=== PATIENT | female | born 1965 | race Caucasian/White ===

== ENCOUNTER 2023-10-30 17:02 | Inpatient (IN) | payer OTHER, SELFPAY ==
--- NOTE | ~2023-10-30 | US_ITS ---
US abdomen limited INDICATION: Acute cholecystitis PROCEDURE: Realtime right upper abdominal ultrasound. COMPARISON: No prior studies for comparison. FINDINGS: The pancreas is normal without focal mass or pancreatic ductal dilation. Liver echotexture is increased, consistent with fatty infiltration. There is normal directional flow in the portal ve in. There is gallbladder sludge. No gallstones are identified. There is mild gallbladder wall thickening measuring 6 mm. Common bile duct measures 10 mm. No sonographic Devine's sign. IMPRESSION: 1: Gallbladder sludge, gallbladder wall thickening and biliary dilatation. Consider acalculous cholec ystitis in the appropriate clinical setting. 2: Fatty infiltration of the liver. Reviewed, dictated and finalized at location B. IMPRESSION: 1: Gallbladder sludge, gallbladder wall thickening and biliary dilatation. Cons ider acalculous cholecystitis in the appropriate clinical setting. 2: Fatty infiltration of the liver.
--- NOTE | ~2023-10-30 | CT_ITS ---
EXAMINATION: CT abdomen pelvis w con DATE: 10/30/2023 21:00 INDICATION: RLQ pain/tenderness TECHNIQUE: Computed tomography (CT) of the abdomen and pelvis was performed with 100 mL Omnipaque-350 intravenous contrast. Automated exposure control and iterative reconstruction technique were employe d. The dose-length product was 293.77 mGy-cm. COMPARISON: None. FINDINGS: Lower thorax: Unremarkable Liver: Normal. Biliary/Gallbladder: Gallbladder is distended with wall thickening and surrounding inflammatory jovel e. The common bile duct is dilated to 11 mm at the pancreatic head. Mild intrahepatic duct dilation. Pancreas: No mass. The main pancreatic duct is dilated to 5 mm. Spleen: Normal. Adrenals:No mass. Kidneys: No suspicious mass, obstructing stone, or hydronephrosis. GI tract: Mild distal esophageal and gastric wall edema. No small or large bowel dilation. Normal fernie endix. Diverticulosis without diverticulitis. Mesentery/Peritoneum: No ascites, mass, or free air. Retroperitoneum: No mass. Pelvis: The urinary bladder is partially distended. Urinary bladder wall thickening. Normal uterus an d bilateral ovaries.. Soft Tissues: Soft tissues and body wall unremarkable. Bones: No acute osseous finding. IMPRESSION: Mild esophagitis/gastritis. Gallbladder hydrops with marked inflammatory change. Intrahepatic and extra hepatic bile duct dilation with pancreatic duct dilation. No definite stone or mass detected. Consider MRCP. Cystitis versus urinary bladder wall thickening from incomplete distention. Reviewed, dictated and finalized at location K. IMPRESSION: Mild esophagitis/gastritis. Gallbladder hydrops with marked inflammatory change. Intrahepatic and extra hepatic bile duct dilation with pancreatic duct dilation . No definite stone or mass detected. Consider MRCP. Cystitis versus urinary bladder wall thickening from incomplete distention.
[2023-10-30 17:09] VITALS: BP 125/76; PULSE 123; RESP 20; TEMP 36.8; O2SAT 97
--- NOTE | 2023-10-30 20:16 | ED.ABDPAIN ---
HPI - Abdominal Pain General Chief Complaint: Abdominal Pain Stated Complaint: abd pain Time Seen by Provider: 10/30/23 19:05 History of Present Illness HPI narrative: Patient is a 58-year-old female presenting with abdominal pain. States that for the last several days she has had right-sided abdominal pain. Associated with decreased appetite and nausea but no vomiting. States that she has been constipated for the last several days. No fevers or chills, chest pain, shortness of breath, dysuria, hematuria. States that she was recently hospitalized at [place] for TIA. Related Data Home Medications Medication Instructions Recorded Confirmed atorvastatin 80 mg tablet 80 mg PO DAILY 10/30/23 10/30/23 clobetasol 0.05 % topical ointment 1 applic topical TID 10/30/23 10/30/23 folic acid 1 mg tablet 1 mg PO DAILY 10/30/23 10/30/23 losartan 100 mg tablet 100 mg PO DAILY 10/30/23 10/30/23 aspirin 81 mg tablet 81 mg PO DAILY 10/31/23 10/31/23 Allergies Allergy/AdvReac Type Severity Reaction Status Date / Time Penicillins Allergy Severe HIVES Verified 08/20/17 15:55 Sulfa (Sulfonamide AdvReac Severe HIVES Verified 08/20/17 15:55 Antibiotics) Review of Systems Review of Systems: All systems reviewed & are unremarkable except as noted in HPI and below PMFSH Past Medical History Medical History Anxiety and depression CVA (cerebral vascular accident) (2022) Essential hypertension GERD (gastroesophageal reflux disease) With CT evidence of esophagitis and gastritis noted 10/10/2019 Gout Hyperlipidemia Psoriasis Thyroid nodule TIA (transient ischemic attack) October 2023 Surgical History Surgical History History of History of endometrial ablation (2010) Family History Family History Sibling Colon cancer Hypertension Other No problems noted. Mother Hypertension Other Acute myocardial infarction Social History Social History (Updated 10/31/23 @ 08:51 by Bhavani Cadena DO) Social History: The patient lives alone. She has 1 son but she is estranged from her son. She has 4 cats. She is a recovering alcoholic. She states that she has drink up to a pint of vodka a day. She used to use cocaine but has not done so in 20 years. She denies history of tobacco use. She does have heavy secondhand smoke exposure and her clothes in belongings smell of smoke. Code status: DNR/DNI per patient request. Nursing staff was at bedside and witnessed discussion of code status and plan of care with patient. Surrogate decision maker: Tory Strauss (friend) Smoking status: Never smoker Alcohol intake: current Drinks per week: 2 Alcohol use details: One pint of alcohol a day. Substance use: former Substance use type: crack/cocaine Do You Feel Safe in your Home?: Yes Lack of Transportation: No Lack of Food: Never True Current Housing: I Have Housing Concerned About Future Housing: No Difficulty Paying Gas/Electric Bills: YES Difficulty Paying for Meds: No Currently Unemployed: No Education: High School Diploma/GED Difficulty w/ Childcare or Family Care: No Spiritual care concerns: No Exam Narrative: GENERAL: Nontoxic, no acute distress, pleasant cooperative HEAD: Normocephalic, atraumatic. EYES: PERRLA and EOMI. ENT: Mucous membranes moist. NECK: Supple. CHEST: Clear to auscultation. No respiratory distress. HEART: Regular rate and rhythm ABDOMEN: Soft, + right upper quadrant and right lower quadrant tenderness without guarding or rebound EXTREMITIES: Normal range of motion. SKIN: Warm, dry, no rash. NEURO: No focal deficits. Alert and oriented x3. PSYCH: Normal mood and affect. Course Vital Signs Vital signs: Vital Signs Temperature 98.2 F 10/30/23 17:09 Pulse Rate 123 H
[2023-10-30] MEDS: ONDANSETRON INJ 4 MG/2 ML VIAL IV PUSH ×2 (20:44→22:21)
[2023-10-30] MEDS: SODIUM CHLORIDE 0.9% IV 1,000 ML 999 ML IV CONT (20:44)
[2023-10-30] MEDS: HYDROmorphone HCL INJ (*CRX) 1 MG/ML SYR 0.5 MG IV PUSH ×2 (20:44→22:21)
[2023-10-30 20:52] LABS: Basophils Absolute Auto 0.1 K/mm3 (0.0-0.1); Basophils Percent Auto 0.5 % (0.2-1.2); Eosinophils Percent Auto 0.1 % (0-4.4); Hematocrit 36.5 % (37.0-47.0); Hemoglobin 12.5 g/dL (12.0-15.0); Immature Granulocyte Absolute 0.03 K/mm3 (0.00-0.031); Immature Granulocyte Percent A 0.3 % (0-0.5); Lymphocytes Absolute Auto 0.86 K/mm3 (0.9-3.2); Lymphocytes Percent Auto 8.7 % (18.3-44.2); Mean Corpuscular HGB Conc 34.2 g/dl (32-36); Mean Corpuscular Hemoglobin 33.2 pg (26-34); Mean Corpuscular Volume 97.1 fl (80-100); Mean Platelet Volume 11.3 fl (7.4-10.4); Monocytes Absolute Auto 1.2 K/mm3 (0.1-0.6); Neutrophils Absolute Auto 7.8 K/mm3 (1.3-6.7); Neutrophils Percent Auto 78.4 % (45.5-73.1); Platelet Count Result 183 k/mm3 (150-375); Red Blood Count 3.76 M/mm3 (4.2-5.4); Red Cell Distribution Width 13.1 % (11.5-14.5); White Blood Count 9.9 K/mm3 (4.5-10.0)
[2023-10-30 20:53] LABS: Estimated CRCL calculation 80 ml/min; Estimated Glomerular Filt Rate > 60
[2023-10-30 20:59] LABS: Appearance Urine Clear (Clear); Bacteria Urine None Seen /hpf; Bilirubin Urine 1+ (Negative); Blood Urine Negative (Negative); Color Urine Dark Yellow (Yellow); Glucose Urine UA Negative (Negative); Ketones Urine Trace mg/dL (Negative); Leukocyte Esterase Ur 2+ LEU/UL (Negative); Nitrate Urine Negative (Negative); Non Pathogenic Casts 0-2; Protein Urine Trace mg/dL (Negative); RBC Urine 0-2 /hpf (0-2); Specific Grav Ur 1.021 (1.001-1.035); Squamous Epithelial Cell Urine Few /hpf (Few); WBC Urine 51-100 /hpf (0-3); pH Urine 5.5 (5.0-9.0)
[2023-10-30 21:01] LABS: Add Urine Microscopic? YES
[2023-10-30 21:13] LABS: Alanine Aminotransferase 42 U/L (6-35); Albumin Level 4.4 g/dL (3.5-5.1); Alkaline Phosphatase 79 U/L (38-126); Anion Gap 15 mmol/L (4-12); Aspartate Amino Transferase 36 U/L (14-36); Bilirubin,Total 1.6 mg/dL (0.2-1.3); Blood Urea Nitrogen 12 mg/dL (7-17); Calcium 9.8 mg/dL (8.4-10.2); Carbon Dioxide 21 mmol/L (22-30); Chloride 98 mmol/L (98-107); Estimated CRCL calculation 80 ml/min; Estimated Glomerular Filt Rate > 60; Glucose 115 mg/dL (65-110); Lipase 39 U/L (23-300); Potassium 4.5 mmol/L (3.4-5.0); Sodium 134 mmol/L (137-145)
[2023-10-30] MEDS: cefTRIAXone 2 GM/NS 100 ML 2 GM/100 ML BAG IVPB (21:39)
[2023-10-30 21:52] VITALS: BP 124/68; PULSE 75; RESP 17; O2SAT 96
[2023-10-30] MEDS: metroNIDAZOLE 500 MG/ISO 100ML 500 MG/100 ML BAG 100 MG IVPB (22:57)
[2023-10-30] MEDS: LACTATED RINGERS 1,000 ML 100 ML IV CONT (22:57)
--- NOTE | 2023-10-30 23:06 | ADMGEN ---
This patient, Zuleyka Max, was admitted to Medical Room 261-01. Patient/family oriented to hospital policies and general routines including ID bracelet, bed and alarms, visiting hours, pain management, procedures, bathroom and other care routines, personal items, smoking policy, room service/diet, and visiting hours. Information on how to activate the Rapid Response Team has been discussed. Patient/Family are encouraged to report perceived risks to care and to ask questions if they do not understand what they are told or what they should do.
[2023-10-31 04:00] VITALS: BP 129/72; PULSE 61; RESP 18; TEMP 36.9; O2SAT 99
--- NOTE | 2023-10-31 05:09 | PM.IMHP ---
H&P: HPI History of Present Illness Date/Time: 10/31/23 05:09 Chief Complaint: Abdominal pain for 2 days Narrative: 58-year-old female with a past medical history TIA x2, hyperlipidemia, hypertension, GERD, gout, psoriasis and prior who presented to the ER with right upper abdominal pain for few days. The patient reports that she was hospitalized at [place] last week for TIA. She felt better the 1st few days she was at home but then to a 3 days ago she began having pain when she would eat. She was worried that it could be her appendix. Pain was in her right abdomen. But on exam patient's pain is directly in the right upper quadrant. She reports the pain occurs 1-2 hours after she eats. It will last a couple of hours and then usually improves. Pain is a 10/10 intensity is worst and a 7/10 in intensity at its best. It does wax and wane. She denies any associated fevers or chills. She has had decreased appetite but no nausea or vomiting. She has not had a bowel movement for the last several days but thinks that this is related to the fact that she has not been much. She does report some GERD symptoms She does admit to being a alcoholic. She had abstained from alcohol for several weeks but slipped up 7 days ago in drink a few oz. She has not had any alcohol use since then. She used to drink a pint of alcohol a day. Review of Systems Review of Systems: 12 systems were reviewed with pertinent positives and negatives per HPI. Except as documented in the HPI, all other systems were reviewed and are negative. Eyes: Comments: No scleral icterus, PMFSH Past Medical History Medical History Anxiety and depression CVA (cerebral vascular accident) (2022) Essential hypertension GERD (gastroesophageal reflux disease) With CT evidence of esophagitis and gastritis noted 10/10/2019 Gout Hyperlipidemia Psoriasis Thyroid nodule TIA (transient ischemic attack) October 2023 Surgical History Surgical History History of History of endometrial ablation (2010) Family History Family History Sibling Colon cancer Hypertension Other No problems noted. Mother Hypertension Other Acute myocardial infarction Social History Social History (Updated 10/31/23 @ 08:51 by Bhavani Cadena DO) Social History: The patient lives alone. She has 1 son but she is estranged from her son. She has 4 cats. She is a recovering alcoholic. She states that she has drink up to a pint of vodka a day. She used to use cocaine but has not done so in 20 years. She denies history of tobacco use. She does have heavy secondhand smoke exposure and her clothes in belongings smell of smoke. Code status: DNR/DNI per patient request. Nursing staff was at bedside and witnessed discussion of code status and plan of care with patient. Surrogate decision maker: Tory Strauss (friend) Smoking status: Never smoker Alcohol intake: current Drinks per week: 2 Alcohol use details: One pint of alcohol a day. Substance use: former Substance use type: crack/cocaine Do You Feel Safe in your Home?: Yes Lack of Transportation: No Lack of Food: Never True Current Housing: I Have Housing Concerned About Future Housing: No Difficulty Paying Gas/Electric Bills: YES Difficulty Paying for Meds: No Currently Unemployed: No Education: High School Diploma/GED Difficulty w/ Childcare or Family Care: No Spiritual care concerns: No Meds Home Medications and Allergies Home Medications Medication Instructions Recorded Confirmed Type atorvastatin 80 mg tablet 80 mg PO DAILY 10/30/23 10/30/23 History clobetasol 0.05 % topical ointment 1 applic topical TID 10/30/23 10/30/23 History folic acid 1 mg tablet 1 mg PO DAILY 10/30/23 10/30/23
[2023-10-31 06:00] VITALS: BP 119/63; PULSE 73; RESP 21; TEMP 38.2; O2SAT 97
[2023-10-31] MEDS: HYDROmorphone HCL INJ (*CRX) 1 MG/ML SYR 0.5 MG IV PUSH ×4 (06:29→20:44)
--- NOTE | 2023-10-31 07:49 | PM.CNGS ---
Assessment and Plan Assessment and plan (1) Acute cholecystitis: Code(s): K81.0 - Acute cholecystitis Status: Acute Assessment and Plan: CT evidence of acute cholecystitis which is c/w her presentation and clinical exam. CT also showed biliary duct dilatation without obvious stone or mass in the common bile duct. Will repeat her labs this morning and get a RUQ abdominal ultrasound. If her bilirubin is rising, may need to consider MRCP. Continue IV antibiotics and IV fluids, and keep her NPO for ultrasound. Patient prefers to avoid surgery if at all possible at this time. (2) CVA (cerebral vascular accident): Onset Date: 2022 Code(s): I63.9 - Cerebral infarction, unspecified Status: Acute (3) GERD (gastroesophageal reflux disease): Qualifiers: Esophagitis presence: with esophagitis Esophagitis bleeding: without hemorrhage Qualified Code(s): K21.00 - Gastro-esophageal reflux disease with esophagitis, without bleeding Code(s): K21.9 - Gastro-esophageal reflux disease without esophagitis Status: Acute (4) Essential hypertension: Code(s): I10 - Essential (primary) hypertension Status: Acute (5) Alcohol abuse: Code(s): F10.10 - Alcohol abuse, uncomplicated Status: Acute Plan I have discussed the patient's case and plan of care with Dr. Blackburn. Thank you for allowing us to see the patient in consultation and we will continue to follow along with you. History of Present Illness Consult details Consult date: 10/31/23 Reason for consult: other (Cholecystitis) Requesting physician: Nichole Blackburn MD Narrative: This is a 58-year-old woman who we have been asked to see in surgical consultation for acute cholecystitis. Per the patient, she had a stroke about a year ago and was admitted to [facility] about a week ago for a TIA. She was released from the hospital and the following day developed right upper quadrant abdominal pain. She reports associated nausea and vomiting the first 2 days. Her pain improved and returned on Monday morning. Her pain has been persistent over the weekend and ultimately brought her in to [place] ED for evaluation. Labs in the ED showed a normal white blood cell count, total bilirubin 1.6, AST 36, ALT 42, alk-phos 79, and lipase 39. CT scan of the abdomen and pelvis showed findings of acute cholecystitis with intra and extrahepatic biliary ductal dilatation, but no CT evidence of cholelithiasis or choledocholithiasis. Incidentally noted is also cystitis versus urinary bladder wall thickening from incomplete distension, and mild esophagitis/gastritis. She is now seen on the medical floor for consultation. She continues to have right upper quadrant abdominal pain. She is adamant that she would prefer to have this treated with antibiotics and avoid a surgery at this time. Review of Systems Review of Systems: All systems reviewed & are unremarkable except as noted in HPI and below [facility] Past Medical History Medical History Anxiety and depression CVA (cerebral vascular accident) (2022) Essential hypertension GERD (gastroesophageal reflux disease) With CT evidence of esophagitis and gastritis noted 10/10/2019 Gout Hyperlipidemia Psoriasis Thyroid nodule TIA (transient ischemic attack) October 2023 Surgical History Surgical History History of History of endometrial ablation (2010) Family History Family History Sibling Colon cancer Hypertension Other No problems noted. Mother Hypertension Other Acute myocardial infarction Social History Social History Social History: Code status: Full code Surrogate decision maker: Tory Strauss (friend) Smoking status: Never smoker
--- NOTE | 2023-10-31 08:02 | PM.IMPN ---
Progress Note: A&P Assessment and Plan (1) Acute cholecystitis: Code(s): K81.0 - Acute cholecystitis Status: Acute Assessment and Plan: - surgery was consulted notes reviewed: - CT evidence of acute cholecystitis which is c/w her presentation and clinical exam. CT also showed biliary duct dilatation without obvious stone or mass in the common bile duct. Will repeat her labs this morning and get a RUQ abdominal ultrasound. If her bilirubin is rising, may need to consider MRCP. Continue IV antibiotics and IV fluids, and keep her NPO for ultrasound. Patient prefers to avoid surgery if at all possible at this time- due to financial reasons. (2) Abnormal finding on urinalysis: Code(s): R82.90 - Unspecified abnormal findings in urine Status: Acute (3) GERD (gastroesophageal reflux disease): Qualifiers: Esophagitis bleeding: without hemorrhage Esophagitis presence: with esophagitis Qualified Code(s): K21.00 - Gastro-esophageal reflux disease with esophagitis, without bleeding Code(s): K21.9 - Gastro-esophageal reflux disease without esophagitis Status: Acute (4) Essential hypertension: Code(s): I10 - Essential (primary) hypertension Status: Acute Plan Patient has imaging findings and exam concerning for acute cholecystitis. General surgery has been consulted. IV Flagyl and Rocephin have ordered. NPO. Will continue p.r.n. pain medications with Dilaudid. Zofran as needed for nausea. IV fluid hydration. Time Spent With Patient Time with patient: 25 - 35 minutes Subjective Date/time seen: 10/31/23 08:02 Interval history: 58-year-old female with a past medical history TIA x2, hyperlipidemia, hypertension, GERD, gout, psoriasis and prior who presented to the ER with right upper abdominal pain for few days. Surgery was consulted. IV antibiotics and IV fluids, NPO for ultrasound. Patient prefers to avoid surgery if at all possible- due to financial reasons. Noted recent hospitalization for TIA at [place]. Review of Systems Review of Systems: 12 systems were reviewed with pertinent positives and negatives per HPI. Except as documented in the HPI, all other systems were reviewed and are negative. Exam Narrative: Weight 61 kg BMI 21.7 Objective Data Vital Signs Vital Signs: Vital Signs - 24 hr 10/30/23 17:09 10/30/23 21:52 10/30/23 23:17 Temperature 98.2 F Pulse Rate 123 H 75 Respiratory Rate 20 17 Blood Pressure 125/76 124/68 Pulse Oximetry 97 96 Oxygen Delivery Room Air 10/31/23 04:00 Temperature 98.4 F Pulse Rate 61 Respiratory Rate 18 Blood Pressure 129/72 Pulse Oximetry 99 Oxygen Delivery Intake/Output Intake/Output: Intake & Output 10/28/23 10/29/23 10/30/23 10/31/23 23:59 23:59 23:59 23:59 Intake Total 1200 Balance 1200 Meds/Results Medications: Active Medications Generic Name Dose Route Start Last Admin Trade Name Freq PRN Reason Stop Dose Admin Clobetasol Propionate 1 applic 10/31/23 09:00 Clobetasol Propionate 0.05% Oint 30 Gm TOPICAL TID JENY Hydromorphone HCl 0.5 mg 10/30/23 21:56 10/31/23 06:29 Hydromorphone Hcl Inj (*Crx) 1 Mg/Ml Syr IV PUSH 0.5 mg Q4H PRN Administration Pain Rated 7-10 Lactated Ringer's 1,000 mls @ 100 mls/hr 10/30/23 22:00 10/30/23 22:57 Lr - Lactated Ringers Iv IV CONT 100 mls/hr .Q10H JENY Administration Ondansetron HCl 4 mg 10/30/23 21:56 10/30/23 22:21 Ondansetron Inj 4 Mg/2 Ml Vial IV PUSH 4 mg Q4H PRN Administration Nausea Radiology Results: ITS Impressions Abdomen/Pelvis CT 10/30/23 21:09 IMPRESSION: Mild esophagitis/gastritis. Gallbladder hydrops with marked inflammatory change. Intrahepatic and extra hepatic bile duct dilation with pancreatic duct dilation. No definite stone or mass detected. Consider MRCP. Cystitis versus urinary bladder wall thickening from incomplete distent
[2023-10-31] MEDS: CLOBETASOL PROPIONATE 0.05% OINT 30 GM 1 APPLIC TOPICAL ×3 (08:24→17:38)
[2023-10-31 09:08] LABS: Basophils Absolute Auto 0.1 K/mm3 (0.0-0.1); Eosinophils Absolute Auto 0.1 K/mm3 (0-0.3); Eosinophils Percent Auto 0.6 % (0-4.4); Hematocrit 35.2 % (37.0-47.0); Hemoglobin 11.5 g/dL (12.0-15.0); Immature Granulocyte Absolute 0.03 K/mm3 (0.00-0.031); Immature Granulocyte Percent A 0.4 % (0-0.5); Lymphocytes Absolute Auto 0.86 K/mm3 (0.9-3.2); Lymphocytes Percent Auto 10.2 % (18.3-44.2); Mean Corpuscular HGB Conc 32.7 g/dl (32-36); Mean Corpuscular Hemoglobin 32.7 pg (26-34); Mean Platelet Volume 11.9 fl (7.4-10.4); Monocytes Absolute Auto 0.9 K/mm3 (0.1-0.6); Neutrophils Absolute Auto 6.5 K/mm3 (1.3-6.7); Neutrophils Percent Auto 76.8 % (45.5-73.1); Platelet Count Result 185 k/mm3 (150-375); Red Blood Count 3.52 M/mm3 (4.2-5.4); Red Cell Distribution Width 13.2 % (11.5-14.5); White Blood Count 8.4 K/mm3 (4.5-10.0)
[2023-10-31 09:14] LABS: Alanine Aminotransferase 45 U/L (6-35); Alkaline Phosphatase 103 U/L (38-126); Anion Gap 12 mmol/L (4-12); Aspartate Amino Transferase 52 U/L (14-36); Bilirubin,Total 1.5 mg/dL (0.2-1.3); Blood Urea Nitrogen 10 mg/dL (7-17); Calcium 9.4 mg/dL (8.4-10.2); Carbon Dioxide 26 mmol/L (22-30); Chloride 98 mmol/L (98-107); Estimated CRCL calculation 70 ml/min; Estimated Glomerular Filt Rate > 60; Glucose 90 mg/dL (65-110); Potassium 4.6 mmol/L (3.4-5.0); Sodium 136 mmol/L (137-145)
[2023-10-31] MEDS: PANTOPRAZOLE SODIUM IV 40 MG VIAL IV PUSH (09:48)
[2023-10-31] MEDS: THIAMINE HCL 200 MG/2 ML VIAL 100 MG IV PUSH (09:48)
[2023-10-31] MEDS: ENOXAPARIN 40 MG/0.4 ML SYRINGE SUB-Q (09:49)
[2023-10-31] MEDS: LACTATED RINGERS 1,000 ML 100 ML IV CONT ×2 (11:28→23:49)
[2023-10-31 14:00] VITALS: BP 133/77; PULSE 64; RESP 18; TEMP 36.8; O2SAT 97
[2023-10-31] MEDS: metroNIDAZOLE 500 MG/ISO 100ML 500 MG/100 ML BAG 100 MG IVPB ×2 (18:53→23:48)
[2023-10-31 20:00] VITALS: BP 113/72; PULSE 60; RESP 18; TEMP 37.4; O2SAT 99
[2023-11-01] MEDS: HYDROmorphone HCL INJ (*CRX) 1 MG/ML SYR 0.5 MG IV PUSH ×2 (02:07→18:40)
[2023-11-01 04:00] VITALS: BP 124/70; PULSE 62; RESP 18; TEMP 36.9; O2SAT 98
[2023-11-01] MEDS: LACTATED RINGERS 1,000 ML 100 ML IV CONT (05:18)
[2023-11-01] MEDS: metroNIDAZOLE 500 MG/ISO 100ML 500 MG/100 ML BAG 100 MG IVPB ×3 (05:19→17:17)
--- NOTE | 2023-11-01 07:58 | PM.IMPN ---
Progress Note: A&P Assessment and Plan (1) Acute cholecystitis: Code(s): K81.0 - Acute cholecystitis Status: Acute Assessment and Plan: Patient prefers to avoid surgery if at all possible. - Abd/pelvis CT: Mild esophagitis/gastritis. Gallbladder hydrops with marked inflammatory change. Intrahepatic and extra hepatic bile duct dilation with pancreatic duct dilation. No definite stone or mass detected. Consider MRCP if bili is rising. Cystitis versus urinary bladder wall thickening from incomplete distention. - Abd US: Gallbladder sludge, gallbladder wall thickening and biliary dilatation. Consider acalculous cholecystitis in the appropriate clinical setting. Fatty infiltration of the liver. - Monitor vital signs, I and O's, check stool output, neuro status and patient is a fall risk - Monitor serum electrolytes and CBC - Pain management - Gentle IV fluid resuscitation - Antibiotics: Rocephin and flagyl - Consult general surgery for further evaluation, appreciate assistance and recommendation Continue IV antibiotics and fluids - Diet: Full liquid diet (2) GERD (gastroesophageal reflux disease): Qualifiers: Esophagitis bleeding: without hemorrhage Esophagitis presence: with esophagitis Qualified Code(s): K21.00 - Gastro-esophageal reflux disease with esophagitis, without bleeding Code(s): K21.9 - Gastro-esophageal reflux disease without esophagitis Status: Acute Assessment and Plan: Chronic. - Protonix 40 mg IV (3) Essential hypertension: Code(s): I10 - Essential (primary) hypertension Status: Acute Assessment and Plan: Chronic, well controlled on home medication. - Continue Losartan 100 mg daily - Monitor (4) Alcohol abuse: Code(s): F10.10 - Alcohol abuse, uncomplicated Status: Acute Assessment and Plan: Per chart review, the patient stated that she had a small amount of alcohol about 7 days prior to admission. She denies symptoms of alcohol withdrawal and states that she had not had alcohol for 6 or 8 weeks before that. - Given her alcohol use history we will need to watch peripherally for any evidence of possible alcohol withdrawal. In case patient may be minimizing her report of alcohol use. Will continue folic acid supplementation. Will add thiamine supplementation. Time Spent With Patient Time with patient: 25 - 35 minutes Subjective Date/time seen: 11/01/23 07:58 Interval history: 58-year-old female with a past medical history TIA x2, hyperlipidemia, hypertension, GERD, gout, psoriasis and prior who presented to the ER with right upper abdominal pain for few days. Patient is pleasant lying comfortably in bed. She continues to endorse mild right upper quadrant pain. She states that this improved since admission. She was started on a full liquid diet today and is tolerating it well. She denies nausea/vomiting/changes in bowel. Patient evaluated by surgery today and will continue medical management at this time. Patient denies chest pain, shortness of breath, palpitations, and changes in urination. She is ambulating around the room without assistance. Review of Systems Review of Systems: All systems reviewed & are unremarkable except as noted in HPI and below Exam Narrative: AF HR 75 RR 20 SpO2 97 BP 108/66 General: female in no acute respiratory distress who is nontoxic appearing, lying semi recumbent in bed. HEENT: Normocephalic. Atraumatic. Pupils equal round reactive to light. Extraocular movement intact. Sclera clear and anicteric. No facial asymmetry. Chest: Lungs are clear to auscultation bilaterally. No wheezes or crackles. CV: Heart was regular rate and rhythm. S1-S2. No murmurs, gallops, or rubs. Abd: Abdomen was soft. RUQ tender. Nondistended. Positive bowel sounds. No organomegaly or masses. Ext: No clubbing, cyanosis, or edema. 2+ DP pulses bilaterally. Neuro: Patient is alert and oriented x4.
[2023-11-01] MEDS: FOLIC ACID 1 MG TABLET PO (08:29)
[2023-11-01] MEDS: PANTOPRAZOLE SODIUM IV 40 MG VIAL IV PUSH (08:29)
[2023-11-01] MEDS: LOSARTAN POTASSIUM 100 MG TABLET PO (08:29)
[2023-11-01] MEDS: ENOXAPARIN 40 MG/0.4 ML SYRINGE SUB-Q (08:29)
[2023-11-01] MEDS: ATORVASTATIN 40 MG TABLET 80 MG PO (08:29)
[2023-11-01] MEDS: ASPIRIN 81 MG ENTERIC TABLET PO (08:29)
[2023-11-01] MEDS: CLOBETASOL PROPIONATE 0.05% OINT 30 GM 1 APPLIC TOPICAL ×3 (08:30→17:20)
[2023-11-01] MEDS: THIAMINE HCL 200 MG/2 ML VIAL 100 MG IV PUSH (08:30)
[2023-11-01 08:31] VITALS: BP 127/69
[2023-11-01 08:39] LABS: Alanine Aminotransferase 35 U/L (6-35); Albumin Level 3.6 g/dL (3.5-5.1); Alkaline Phosphatase 120 U/L (38-126); Anion Gap 10 mmol/L (4-12); Aspartate Amino Transferase 37 U/L (14-36); Bilirubin,Total 1.2 mg/dL (0.2-1.3); Blood Urea Nitrogen 9 mg/dL (7-17); Calcium 8.9 mg/dL (8.4-10.2); Carbon Dioxide 23 mmol/L (22-30); Chloride 102 mmol/L (98-107); Estimated CRCL calculation 80 ml/min; Estimated Glomerular Filt Rate > 60; Glucose 84 mg/dL (65-110); Potassium 3.7 mmol/L (3.4-5.0); Sodium 135 mmol/L (137-145)
[2023-11-01 08:40] LABS: Basophils Absolute Auto 0.1 K/mm3 (0.0-0.1); Basophils Percent Auto 1.2 % (0.2-1.2); Eosinophils Absolute Auto 0.1 K/mm3 (0-0.3); Eosinophils Percent Auto 1.2 % (0-4.4); Hematocrit 31.7 % (37.0-47.0); Hemoglobin 10.6 g/dL (12.0-15.0); Immature Granulocyte Absolute 0.03 K/mm3 (0.00-0.031); Immature Granulocyte Percent A 0.5 % (0-0.5); Lymphocytes Absolute Auto 0.94 K/mm3 (0.9-3.2); Lymphocytes Percent Auto 16.7 % (18.3-44.2); Mean Corpuscular HGB Conc 33.4 g/dl (32-36); Mean Corpuscular Hemoglobin 32.9 pg (26-34); Mean Corpuscular Volume 98.4 fl (80-100); Mean Platelet Volume 11.7 fl (7.4-10.4); Monocytes Absolute Auto 0.7 K/mm3 (0.1-0.6); Monocytes Percent Auto 12.4 % (2.6-8.5); Neutrophils Absolute Auto 3.8 K/mm3 (1.3-6.7); Platelet Count Result 172 k/mm3 (150-375); Red Blood Count 3.22 M/mm3 (4.2-5.4); Red Cell Distribution Width 12.9 % (11.5-14.5); White Blood Count 5.6 K/mm3 (4.5-10.0)
[2023-11-01 09:07] VITALS: O2SAT 96
--- NOTE | 2023-11-01 11:29 | PM.PNGS ---
Progress Note: A&P Assessment and Plan (1) Acute cholecystitis: Code(s): K81.0 - Acute cholecystitis Status: Acute Assessment and Plan: improved, cont conservative mgmt c abx and low fat diet Subjective Subjective Date/Time Seen: 11/01/23 11:29 Interval history: feels better this am, still c RUQ pain but improved, mary clears Review of Systems Review of Systems: All systems reviewed & are unremarkable except as noted in HPI and below Exam Const: General: cooperative, comfortable and no acute distress Resp: Auscultation: clear to auscultation bilaterally Cardio: Rate: regular rate Rhythm: regular rhythm GI: Inspection: normal to inspection and non-distended GI Palp: Yes abdominal tenderness, Yes Soft to palpation and Yes Tenderness to palpation present (GI) Objective Data Vital Signs Vital Signs: Vital Signs - 24 hr 10/31/23 14:00 10/31/23 20:00 10/31/23 20:00 Temperature 36.8 C 37.4 C Pulse Rate 64 60 Respiratory Rate 18 18 Blood Pressure 133/77 113/72 Pulse Oximetry 97 99 Oxygen Delivery Room Air 11/01/23 04:00 11/01/23 08:31 11/01/23 09:07 Temperature 36.9 C Pulse Rate 62 Respiratory Rate 18 Blood Pressure 124/70 127/69 Pulse Oximetry 98 96 Oxygen Delivery Room Air Intake/Output Intake/Output: Intake & Output 10/29/23 10/30/23 10/31/23 11/01/23 23:59 23:59 23:59 23:59 Intake Total 1200 2630 888.3 Balance 1200 2630 888.3 Meds/Results Medications: Active Medications Generic Name Dose Route Start Last Admin Trade Name Freq PRN Reason Stop Dose Admin Aspirin 81 mg 11/01/23 09:00 11/01/23 08:29 Aspirin 81 Mg Enteric Tablet PO 81 mg QAM JENY Administration Atorvastatin Calcium 80 mg 11/01/23 09:00 11/01/23 08:29 Atorvastatin 40 Mg Tablet PO 80 mg DAILY JENY Administration Clobetasol Propionate 1 applic 10/31/23 09:00 11/01/23 08:30 Clobetasol Propionate 0.05% Oint 30 Gm TOPICAL 1 applic TID JENY Administration Enoxaparin Sodium 40 mg 10/31/23 09:00 11/01/23 08:29 Enoxaparin 40 Mg/0.4 Ml Syringe SUB-Q 40 mg DAILY JENY Administration Folic Acid 1 mg 11/01/23 09:00 11/01/23 08:29 Folic Acid 1 Mg Tablet PO 1 mg DAILY JENY Administration Hydromorphone HCl 0.5 mg 10/30/23 21:56 11/01/23 02:07 Hydromorphone Hcl Inj (*Crx) 1 Mg/Ml Syr IV PUSH 0.5 mg Q4H PRN Administration Pain Rated 7-10 Lactated Ringer's 1,000 mls @ 100 mls/hr 10/30/23 22:00 11/01/23 05:18 Lr - Lactated Ringers Iv IV CONT 100 mls/hr .Q10H JENY Administration Metronidazole 500 mg in 100 mls @ 100 mls/hr 10/31/23 18:40 11/01/23 05:19 Flagyl 500 Mg/Iso Soln 100 Ml IVPB 100 mls/hr Q6HR JENY Administration Ceftriaxone Sodium 1 gm in 50 mls @ 100 mls/hr 10/31/23 19:00 10/31/23 21:11 Rocephin 1 Gm/Ns 50 Ml IVPB Infused Q24H JENY Infusion Losartan Potassium 100 mg 11/01/23 09:00 11/01/23 08:29 Losartan Potassium 100 Mg Tablet PO 100 mg DAILY JENY Administration Ondansetron HCl 4 mg 10/30/23 21:56 10/30/23 22:21 Ondansetron Inj 4 Mg/2 Ml Vial IV PUSH 4 mg Q4H PRN Administration Nausea Pantoprazole Sodium 40 mg 10/31/23 09:00 11/01/23 08:29 Pantoprazole Sodium Iv 40 Mg Vial IV PUSH 40 mg QAM JENY Administration Thiamine HCl 100 mg 10/31/23 09:00 11/01/23 08:30 Thiamine Hcl 200 Mg/2 Ml Vial IV PUSH 100 mg QAM JENY Administration Radiology Results: ITS Impressions Abdomen/Pelvis CT 10/30/23 21:09 IMPRESSION: Mild esophagitis/gastritis. Gallbladder hydrops with marked inflammatory change. Intrahepatic and extra hepatic bile duct dilation with pancreatic duct dilation. No definite stone or mass detected. Consider MRCP. Cystitis versus urinary bladder wall thickening from incomplete distention. Abdomen Ultrasound 10/31/23 09:35 IMPRESSION: 1: Gallbladder sludge, gallbladder wall thickening and biliary dilatati
[2023-11-01 13:56] VITALS: BP 108/66; PULSE 75; RESP 20; TEMP 36.7; O2SAT 97
[2023-11-01] MEDS: HYDROcodone/acetaminophen (*CRX) 5-325 MG TABLET 1 TAB PO (15:08)
[2023-11-01 20:00] VITALS: PULSE 58; RESP 16; O2SAT 100
[2023-11-01 20:14] VITALS: BP 136/75; PULSE 58; RESP 16; TEMP 37; O2SAT 100
[2023-11-02] MEDS: metroNIDAZOLE 500 MG/ISO 100ML 500 MG/100 ML BAG 100 MG IVPB ×3 (00:01→12:09)
[2023-11-02] MEDS: LACTATED RINGERS 1,000 ML 100 ML IV CONT (00:04)
[2023-11-02 05:26] VITALS: BP 141/73; PULSE 64; RESP 18; TEMP 36.7; O2SAT 100
[2023-11-02] MEDS: HYDROmorphone HCL INJ (*CRX) 1 MG/ML SYR 0.5 MG IV PUSH (05:34)
[2023-11-02 05:51] LABS: Basophils Absolute Auto 0.1 K/mm3 (0.0-0.1); Eosinophils Absolute Auto 0.1 K/mm3 (0-0.3); Hematocrit 30.7 % (37.0-47.0); Hemoglobin 10.2 g/dL (12.0-15.0); Immature Granulocyte Absolute 0.02 K/mm3 (0.00-0.031); Immature Granulocyte Percent A 0.4 % (0-0.5); Lymphocytes Percent Auto 22.1 % (18.3-44.2); Mean Corpuscular HGB Conc 33.2 g/dl (32-36); Mean Corpuscular Hemoglobin 32.6 pg (26-34); Mean Corpuscular Volume 98.1 fl (80-100); Mean Platelet Volume 11.2 fl (7.4-10.4); Monocytes Absolute Auto 0.5 K/mm3 (0.1-0.6); Monocytes Percent Auto 9.9 % (2.6-8.5); Neutrophils Absolute Auto 3.3 K/mm3 (1.3-6.7); Neutrophils Percent Auto 65.6 % (45.5-73.1); Platelet Count Result 172 k/mm3 (150-375); Red Blood Count 3.13 M/mm3 (4.2-5.4); Red Cell Distribution Width 13.1 % (11.5-14.5)
[2023-11-02 06:01] LABS: Alanine Aminotransferase 26 U/L (6-35); Albumin Level 3.4 g/dL (3.5-5.1); Alkaline Phosphatase 105 U/L (38-126); Anion Gap 9 mmol/L (4-12); Aspartate Amino Transferase 28 U/L (14-36); Bilirubin,Total 0.6 mg/dL (0.2-1.3); Blood Urea Nitrogen 9 mg/dL (7-17); Carbon Dioxide 25 mmol/L (22-30); Chloride 103 mmol/L (98-107); Estimated CRCL calculation 70 ml/min; Estimated Glomerular Filt Rate > 60; Glucose 95 mg/dL (65-110); Potassium 3.8 mmol/L (3.4-5.0); Sodium 137 mmol/L (137-145)
[2023-11-02] MEDS: THIAMINE HCL 200 MG/2 ML VIAL 100 MG IV PUSH (09:27)
[2023-11-02] MEDS: ENOXAPARIN 40 MG/0.4 ML SYRINGE SUB-Q (09:27)
[2023-11-02] MEDS: LOSARTAN POTASSIUM 100 MG TABLET PO (09:27)
[2023-11-02] MEDS: ATORVASTATIN 40 MG TABLET 80 MG PO (09:27)
[2023-11-02] MEDS: ASPIRIN 81 MG ENTERIC TABLET PO (09:27)
[2023-11-02] MEDS: PANTOPRAZOLE SODIUM IV 40 MG VIAL IV PUSH (09:27)
[2023-11-02] MEDS: FOLIC ACID 1 MG TABLET PO (09:27)
[2023-11-02] MEDS: CLOBETASOL PROPIONATE 0.05% OINT 30 GM 1 APPLIC TOPICAL ×2 (09:28→12:09)
--- NOTE | 2023-11-02 09:28 | PM.PNGS ---
Progress Note: A&P Assessment and Plan (1) Acute cholecystitis: Code(s): K81.0 - Acute cholecystitis Status: Acute Assessment and Plan: improved exam and labs normalized, long d/w pt and she wants to have interval cholecystectomy as outpt, ok to dc home c po abx and analgesia, f/u in 2 wks as outpt to schedule interval crystal Subjective Subjective Date/Time Seen: 11/02/23 09:28 Interval history: feels better, still c some mild pain, mary low fat diet Review of Systems Review of Systems: All systems reviewed & are unremarkable except as noted in HPI and below Exam Const: General: cooperative, comfortable and no acute distress Resp: Auscultation: clear to auscultation bilaterally Cardio: Rate: regular rate Rhythm: regular rhythm GI: Inspection: normal to inspection and non-distended GI Palp: Yes abdominal tenderness and Yes Soft to palpation Objective Data Vital Signs Vital Signs: Vital Signs - 24 hr 11/01/23 13:56 11/01/23 20:14 11/01/23 20:00 Temperature 36.7 C 37.0 C Pulse Rate 75 58 L 58 L Respiratory Rate 20 16 16 Blood Pressure 108/66 136/75 Pulse Oximetry 97 100 100 Oxygen Delivery Room Air 11/02/23 05:26 Temperature 36.7 C Pulse Rate 64 Respiratory Rate 18 Blood Pressure 141/73 H Pulse Oximetry 100 Oxygen Delivery Intake/Output Intake/Output: Intake & Output 10/30/23 10/31/23 11/01/23 11/02/23 23:59 23:59 23:59 23:59 Intake Total 1200 2630 3358.3 840 Balance 1200 2630 3358.3 840 Meds/Results Medications: Active Medications Generic Name Dose Route Start Last Admin Trade Name Freq PRN Reason Stop Dose Admin Acetaminophen 650 mg 11/01/23 14:47 Acetaminophen 325 Mg Tablet PO Q4H PRN Pain Rated 1-3 Hydrocodone Bitart/Acetaminophen 1 tab 11/01/23 14:49 11/01/23 15:08 Hydrocodone/Acetaminophen (*Crx) 5-325 Mg Tablet PO 1 tab Q4H PRN Administration Pain Rated 4-6 Aspirin 81 mg 11/01/23 09:00 11/02/23 09:27 Aspirin 81 Mg Enteric Tablet PO 81 mg QAM JENY Administration Atorvastatin Calcium 80 mg 11/01/23 09:00 11/02/23 09:27 Atorvastatin 40 Mg Tablet PO 80 mg DAILY JENY Administration Clobetasol Propionate 1 applic 10/31/23 09:00 11/02/23 09:28 Clobetasol Propionate 0.05% Oint 30 Gm TOPICAL 1 applic TID JENY Administration Enoxaparin Sodium 40 mg 10/31/23 09:00 11/02/23 09:27 Enoxaparin 40 Mg/0.4 Ml Syringe SUB-Q 40 mg DAILY JENY Administration Folic Acid 1 mg 11/01/23 09:00 11/02/23 09:27 Folic Acid 1 Mg Tablet PO 1 mg DAILY JENY Administration Lactated Ringer's 1,000 mls @ 100 mls/hr 10/30/23 22:00 11/02/23 00:04 Lr - Lactated Ringers Iv IV CONT 100 mls/hr .Q10H JENY Administration Metronidazole 500 mg in 100 mls @ 100 mls/hr 10/31/23 18:40 11/02/23 06:25 Flagyl 500 Mg/Iso Soln 100 Ml IVPB Infused Q6HR JENY Infusion Ceftriaxone Sodium 1 gm in 50 mls @ 100 mls/hr 10/31/23 19:00 11/01/23 19:10 Rocephin 1 Gm/Ns 50 Ml IVPB Infused Q24H JENY Infusion Losartan Potassium 100 mg 11/01/23 09:00 11/02/23 09:27 Losartan Potassium 100 Mg Tablet PO 100 mg DAILY JENY Administration Ondansetron HCl 4 mg 10/30/23 21:56 10/30/23 22:21 Ondansetron Inj 4 Mg/2 Ml Vial IV PUSH 4 mg Q4H PRN Administration Nausea Pantoprazole Sodium 40 mg 10/31/23 09:00 11/02/23 09:27 Pantoprazole Sodium Iv 40 Mg Vial IV PUSH 40 mg QAM JENY Administration Thiamine HCl 100 mg 10/31/23 09:00 11/02/23 09:27 Thiamine Hcl 200 Mg/2 Ml Vial IV PUSH 100 mg QAM JENY Administration Radiology Results: ITS Impressions Abdomen/Pelvis CT 10/30/23 21:09 IMPRESSION: Mild esophagitis/gastritis. Gallbladder hydrops with marked inflammatory change. Intrahepatic and extra hepatic bile duct dilation with pancreatic duct dilation. No definite stone or mass detected. Consider MRCP. Cystitis versus urinary bladder wall thickeni
--- NOTE | 2023-11-02 12:29 | PM.DS ---
DS: Admitting Diagnosis Discharge Date 11/02/23 Admitting Diagnosis acute cholecystitis GERD essential hypertension alcohol abuse DS: Discharge Diagnosis Discharge Diagnosis (1) Acute cholecystitis: Code(s): K81.0 - Acute cholecystitis Status: Acute (2) GERD (gastroesophageal reflux disease): Qualifiers: Esophagitis presence: with esophagitis Esophagitis bleeding: without hemorrhage Qualified Code(s): K21.00 - Gastro-esophageal reflux disease with esophagitis, without bleeding Code(s): K21.9 - Gastro-esophageal reflux disease without esophagitis Status: Acute (3) Essential hypertension: Code(s): I10 - Essential (primary) hypertension Status: Acute (4) Alcohol abuse: Code(s): F10.10 - Alcohol abuse, uncomplicated Status: Acute DS: Summary Hospital Course Reason for hospitalization: acute cholecystitis GERD essential hypertension alcohol abuse Hospital Course: 58-year-old female with a past medical history TIA x2, hyperlipidemia, hypertension, GERD, gout, psoriasis and prior who presented to the ER with right upper abdominal pain for few days. An abdomen/pelvis CT was obtained and showed gallbladder hydrops with marked inflammatory change. Intrahepatic and extra hepatic bile duct dilation with pancreatic duct dilation. No definite stone or mass detected. Patient was made NPO and surgery was consulted. An abdominal US showed gallbladder sludge, gallbladder wall thickening and biliary dilatation. Fatty infiltration of the liver. Patient wanted to avoid surgery at this time and underwent medical management. She was started on IV antibiotics and fluid resuscitation. Patient was started on a liquid diet and advanced to regular diet prior to discharge. Discussed patient with Dr. Blackburn prior to discharge and she is to be discharged on ciprofloxacin to complete a 10 day course. She is to follow up with surgery in 2 weeks. Prior to discharge patient denied chest pain, shortness of breath, nausea/vomiting, and changes in bowel/bladder. Patient discharged home in stable condition. She is to continue the ciprofloxacin as prescribed and follow up with surgery as scheduled. Patient is to follow up with her PCP in 1 week to discuss recent admission. Status at Discharge Functional status at discharge: independent ambulation Time Spent with Patient Time attestation: Total time spent providing and/or coordinating discharge services: Time spent: Greater than 30 minutes Exam Narrative: AF HR 64 RR 18 SpO2 100 BP 141/73 General: female in no acute respiratory distress who is nontoxic appearing, lying semi recumbent in bed. HEENT: Normocephalic. Atraumatic. Pupils equal round reactive to light. Extraocular movement intact. Sclera clear and anicteric. No facial asymmetry. Chest: Lungs are clear to auscultation bilaterally. No wheezes or crackles. CV: Heart was regular rate and rhythm. S1-S2. No murmurs, gallops, or rubs. Abd: Abdomen was soft. RUQ tender. Nondistended. Positive bowel sounds. No organomegaly or masses. DS: Data Data Completed and Pending Completed studies during hospitalization: Abdomen US Abdomen/pelvis CT Labs on day of discharge: Labs from last 24 hours 11/02/23 05:10 WBC 5.0 RBC 3.13 L Hgb 10.2 L Hct 30.7 L MCV 98.1 MCH 32.6 MCHC 33.2 RDW 13.1 Plt Count 172 MPV 11.2 H Immature Gran % (Auto) 0.4 Neut % (Auto) 65.6 Lymph % (Auto) 22.1 [place] % (Auto) 9.9 H Eos % (Auto) 1.0 Baso % (Auto) 1.0 Lymph # (Auto) 1.10 [place] # (Auto) 0.5 Eos # (Auto) 0.1 Baso # (Auto) 0.1 Abs Immat Gran (auto) 0.02 Absolute Neuts (auto) 3.3 Absolute Nucleated RBC 0.000 Nucleated RBC % 0.0 Sodium 137 Potassium 3.8 Chloride 103 Carbon Dioxide 25 Anion Gap 9 BUN 9 Creatinine 0.70 Estim Creat Clear Calc 70 Estimated GFR > 60 Glucose 95 Calcium 9.0 Total Bilirubin 0.6 AST 28 ALT 26 Alkaline Phosphatase 1
== END 2023-11-02 13:33 | disposition home or self-care (01) ==
LOC: ANHED 21:06 → ANH2MED 22:33
PROVIDERS: Nurse Practitioner Family; Admitting Provider Internal Medicine; Emergency Provider Emergency Medicine; PCP Internal Medicine Gastroenterology; Visit Provider Student in an Organized Health Care Education/Training Program
DX: K81.0 Acute cholecystitis (principal); K21.9 Gastro-esophageal reflux disease without esophagitis; I10 Essential (primary) hypertension; F10.10 Alcohol abuse, uncomplicated; E78.5 Hyperlipidemia, unspecified; L40.9 Psoriasis, unspecified; M10.9 Gout, unspecified; F41.8 Other specified anxiety disorders; E04.1 Nontoxic single thyroid nodule; R82.90 Unspecified abnormal findings in urine; Z86.73 Personal history of transient ischemic attack (TIA), and cerebral infarction without residual deficits
CPT/HCPCS: 36415; 74177; 76705; 80053; 81001; 83690; 85025; 87086; 96361; 96365; 96375; 96376; 99285; A9270; G0378; J0696; J1170; J1650; J1836; J2405; J2470; J3411; J7030; J7120; Q9967

== ENCOUNTER 2024-01-30 22:32 | Inpatient (IN) | payer OTHER, SELFPAY ==
--- NOTE | ~2024-01-30 | XR_ITS ---
INTRAOPERATIVE FLUOROSCOPY: CLINICAL HISTORY: 58 years old Female; choledocholithiasis PROCEDURE COMMENTS: Limited intraoperative fluoroscopy of the biliary tree was performed. CUMULATIVE DOSE: 36.9 mGy FLUOROSCOPY TIME: 293 seconds FINDINGS/IMPRESSION: Intraoperative fluoroscopic views demonstrate contrast opacifying the common bile duct and proximal i ntrahepatic bile ducts pre and post stone removal. Please refer to operative note for further details. Reviewed, dictated and finalized at location A.
--- NOTE | ~2024-01-30 | MR_ITS ---
EXAMINATION: MR MRCP wo/w con/w 3D wo ind DATE: 01/31/2024 09:49 INDICATION: Choledocholithiasis. TECHNIQUE: Magnetic resonance imaging (MRI) of the abdomen was performed without and with 14 mL Multi Marisel intravenous contrast. Sequences included coronal T2-weighted FS FSE, coronal T2-weighted FSE, a xial T1-weighted LAVA, coronal FS FIESTA, axial dual-echo T1-weighted SPGR, coronal lava-FLEX, sagitt al T2-weighted FSE, axial T2-weighted FSE, and axial DWI. Thick-slab T2-weighted FSE images were obta ined for magnetic resonance cholangiopancreatography (MRCP). Maximum intensity projection 3-D reconst ructions of the volumetric data were created by the technologist. Postcontrast sequences included cor onal LAVA-flex and time course of axial T1-weighted LAVA. COMPARISON: CT abdomen and pelvis 01/30/2024, 10/30/23 FINDINGS: ABDOMEN MRI: The liver demonstrates periportal edema. The gallbladder is distended and contains sludg e. There is edema around the karolyn hepatis. The spleen, pancreas, and adrenal glands are normal. Ther e is cortical thinning of the kidneys. There is 11 mm cyst in right kidney. There is a 5 mm cyst in l eft kidney. There are no dilated loops of bowel. There are no pathologically enlarged lymph nodes. Th ere is trace perihepatic ascites. ABDOMEN MRCP: The common duct is dilated to 12 mm. There is a 6 x 9 mm stone or cluster of stones in the common bile duct. IMPRESSION: 1. Choledocholithiasis with intrahepatic and extrahepatic biliary duct dilatation and gallbladder dis tention. Reviewed, dictated and finalized at location A. IMPRESSION: 1. Choledocholithiasis with intrahepatic and extrahepatic biliary duct dilatati on and gallbladder distention.
--- NOTE | ~2024-01-30 | CT_ITS ---
EXAMINATION: CT abdomen pelvis w con DATE: 01/30/2024 23:33 INDICATION: Right upper quadrant abdominal pain. Abnormal liver function tests. TECHNIQUE: Computed tomography (CT) of the abdomen and pelvis was performed with 100 mL Omnipaque-350 intravenous contrast. Automated exposure control and iterative reconstruction technique were employe d. The dose-length product was 263.13 mGy-cm. COMPARISON: 10/30/2023 FINDINGS: Mild dependent atelectasis in the right lower lobe. Heart size is normal. No pericardial effusion. Ec kathy of the ascending thoracic aorta the visualized portion which measures up to 3.9 cm. Enlargement of the central pulmonary arteries consistent with pulmonary arterial hypertension. Mild dilation of the common bile duct which measures up to 10 mm in maximal diameter with intraluminal densities at th e distal duct likely representing choledocholithiasis. Minimal central intrahepatic ductal or ductal dilation. Liver is otherwise normal. The gallbladder is distended to 4.3 similar with diffuse mild wa ll thickening but without evident pericholecystic inflammatory stranding but with suggestion of minim al amount of fluid at the karolyn hepatis suspicious for early acute cholecystitis. Spleen, pancreas, b ilateral adrenal glands and left kidney are normal. 1.5 cm right renal cyst. There are also small reg ion of cortical scarring at the right kidney likely sequela of chronic infection or infarction. Moder ate diverticulosis along the descending and sigmoid colon without adjacent comparison to suggest dive rticulitis. No bowel obstruction. Bladder uterus and bilateral adnexa are unremarkable. No free intra peritoneal gas or fluid. No pathologically enlarged abdominal or pelvic lymphadenopathy. Moderate to severe lumbar and lower thoracic spondylosis. Acute to subacute L1 and L3 compression fractures with 20% anterior vertebral body height loss and linear sclerotic fracture lines underlying the mildly dep ressed superior endplates. Moderate bilateral hip osteoarthritis. IMPRESSION: 1. Likely choledocholithiasis with secondary biliary obstruction and suspicion for developing acute c holecystitis. Correlate with liver function tests and for Devine sign. Could consider further evaluat ion with MRCP, right upper quadrant ultrasound or HIDA scan depending upon clinical suspicion and spe cific question to be addressed. 2. Acute to subacute L1 and L3 compression fractures which are new since 3 months prior. Reviewed, dictated and finalized at location A. IMPRESSION: 1. Likely choledocholithiasis with secondary biliary obstruction and suspicion for developing acute cholecystitis. Correlate with liver function tests and for Devine sign. Could consider further evaluation with MRCP, right upper quadrant ultrasound or HIDA scan depending upon clinical suspicion and specific questio n to be addressed. 2. Acute to subacute L1 and L3 compression fractures which are new since 3 vinicius hs prior.
[2024-01-30 22:32] VITALS: BP 178/101; PULSE 73; RESP 27; TEMP 36.4; O2SAT 96
--- NOTE | 2024-01-30 22:51 | ED_ITS ---
HPI - Abdominal Pain General Chief Complaint: Abdominal Pain <RENE Myers Filed: 01/31/24 02:08> Stated Complaint: Abd pain, RLQ <RENE Myers Last Filed: 01/31/24 02:08> Time Seen by Provider: 01/30/24 22:44 <RENE Myers Last Filed: 01/31/24 02:08> Source: patient <RENE Myers Filed: 01/31/24 02:08> Mode of arrival: EMS <RENE Myers Filed: 01/31/24 02:08> Limitations: no limitations <RENE Myers Filed: 01/31/24 02:08> History of Present Illness HPI narrative: Patient is a 58-year-old female who presents the ED via EMS with report of right upper abdominal pain. Patient reports history of gallbladder disease and states she was seen in the ED here 3 months ago for similar symptoms. Was told she needed to have her gallbladder out at that time, but was unable to due to financial issues. Was treated conservatively with antibiotics at that time. States today she began having pain a few hours prior to arrival. Pain has been constant and worsening. Has not been able to take anything for the pain due to the vomiting. Does feel nauseous currently. Denies diarrhea, constipation, urinary complaints, fevers, chest pain, shortness of breath <RENE Myers Filed: 01/31/24 02:08> Related Data Home Medications: Home Medications Medication Instructions Recorded Confirmed atorvastatin 80 mg tablet 80 mg PO DAILY 10/30/23 10/30/23 clobetasol 0.05 % topical ointment 1 applic topical TID 10/30/23 10/30/23 folic acid 1 mg tablet 1 mg PO DAILY 10/30/23 10/30/23 losartan 100 mg tablet 100 mg PO DAILY 10/30/23 10/30/23 aspirin 81 mg tablet 81 mg PO DAILY 10/31/23 10/31/23 <RENE Myers Filed: 01/31/24 02:08> Allergies/Adverse Reactions: Allergies Allergy/AdvReac Type Severity Reaction Status Date / Time Penicillins Allergy Severe HIVES Verified 01/30/24 22:39 Sulfa (Sulfonamide AdvReac Severe HIVES Verified 01/30/24 22:39 Antibiotics) <Becky North PA-C - Last Filed: 01/31/24 02:08> Review of Systems Review of Systems: All systems reviewed & are unremarkable except as noted in HPI. <Becky North PA-C - Last Filed: 01/31/24 02:08> All systems reviewed & are unremarkable except as noted in HPI and below <Becky North PA-C - Last Filed: 01/31/24 02:08> FOR[facility]LY [facility] Past Medical History Medical History: Medical History Anxiety and depression CVA (cerebral vascular accident) (2022) Essential hypertension GERD (gastroesophageal reflux disease) With CT evidence of esophagitis and gastritis noted 10/10/2019 Gout Hyperlipidemia Psoriasis Thyroid nodule TIA (transient ischemic attack) October 2023 <Becky North PA-C - Last Filed: 01/31/24 02:08> Surgical History Surgical History: Surgical History History of History of endometrial ablation (2010) <Becky North PA-C - Last Filed: 01/31/24 02:08> Family History Family History: Family History Sibling Colon cancer Hypertension Other No problems noted. Mother Hypertension Other Acute myocardial infarction <Becky North PA-C - Last Filed: 01/31/24 02:08> Social History Social History: Social History Social History: The patient lives alone. She has 1 son but she is estranged from her son. She has 4 cats. She is a recovering alcoholic. She states that she has drink up to a pint of vodka a day. She used to use cocaine but has not done so in 20 years. She denies history of tobacco use. She does have heavy secondhand smoke exposure and her clothes in belongings smell of smoke. Code status: DNR/DNI per patient request. Nursing staff was at bedside and witnessed discussion of code status and plan of care with patient. Surrogate decision maker: Tory Strauss (friend) Smoking status: Never smoker Alcohol intake: current Drinks per week: 2 Alcohol use details: One pint of alcohol a day. Substance use: former Substance use type: crack/cocaine Do You Feel Safe in your Home?: Yes Lack of Transportation: No Lack of Food: Never True Current Housing: I Have Housing Concerned About Future Housing: No Difficulty Paying Gas/Electric Bills: YES Difficulty Paying for Meds: No Currently Unemployed: No Education: High School Diploma/GED Difficulty w/ Childcare or Family Care: No Spiritual care concerns: No <Becky North PA-C - Last Filed: 01/31/24 02:08> Exam Narrative: GENERAL: Appears older than stated age, well-nourished, non-toxic, in mild acute distress due to pain. HEAD: Normocephalic, atraumatic. RESPIRATORY: Airway patent, respirations nonlabored. Clear to auscultation bilaterally, no rales, rhonchi, wheezing. CARDIOVASCULAR: Regular rate and rhythm without murmurs, rubs, or gallops. ABDOMINAL: Soft, moderate tenderness in RUQ, R mid abdomen, suprapubic region. Nondistended. Normoactive BS. MUSCULOSKELETAL: Moves all extremities. No gross deformities. SKIN: Warm, dry, normal color. NEURO: A&O X3. Speech clear. PSYCHIATRIC: Appropriate mood and affect. Normal interaction. <Becky North PA-C - Last Filed: 01/31/24 02:08> Course [employer]/PA Physician Supervision For this patient encounter, I reviewed the [employer] or PA documentation, treatment plan, and medical decision making and had [id number] time with this patient. I performed all aspects of the MDM as documented. <Whitley Sánchez MD - Last Filed: 01/31/24 02:34> Vital Signs Vital signs: Vital Signs Temperature 97.6 F 01/30/24 22:32 Pulse Rate 73 01/30/24 22:32 Respiratory Rate 27 H 01/30/24 22:32 Blood Pressure 178/101 H 01/30/24 22:32 Pulse Oximetry 96 01/30/24 22:32 Oxygen Delivery Room Air 01/30/24 22:32 Temperature 97.6 F 01/30/24 22:32 Pulse Rate 93 01/31/24 00:12 Respiratory Rate 24 H 01/31/24 00:12 Blood Pressure 138/92 H 01/31/24 00:12 Pulse Oximetry 99 01/31/24 00:12 Oxygen Delivery Room Air 01/30/24 22:32 <Becky North PA-C - Last Filed: 01/31/24 02:08> Vital Signs Temperature 97.6 F 01/30/24 22:32 Pulse Rate 73 01/30/24 22:32 Respiratory Rate 27 H 01/30/24 22:32 Blood Pressure 178/101 H 01/30/24 22:32 Pulse Oximetry 96 01/30/24 22:32 Oxygen Delivery Room Air 01/30/24 22:32 Temperature 97.6 F 01/30/24 22:32 Pulse Rate 93 01/31/24 00:12 Respiratory Rate 24 H 01/31/24 00:12 Blood Pressure 138/92 H 01/31/24 00:12 Pulse Oximetry 99 01/31/24 00:12 Oxygen Delivery Room Air 01/30/24 22:32 <Whitley Sánchez MD - Last Filed: 01/31/24 02:34> MDM - Abdominal Pain MDM Narrative Medical decision making narrative: Patient presented to ED with right upper quadrant abdominal pain, history of similar pain related to gallbladder. Reporting nausea, vomiting, has not taken anything for pain. Vital signs are stable upon arrival. Patient is afebrile. Cbc without leukocytosis. CMP with evidence of dehydration, bicarb low at 21, anion gap of 16. Fluids initiated. Normal blood glucose. LFTs are notably abnormal, total bilirubin elevated to 2.4. AST 352. ALT 99. Alk-phos 279. Lipase is within normal limits. UA concerning for infection. Sent for cx. CT abdomen pelvis obtained: IMPRESSION: 1. Likely choledocholithiasis with secondary biliary obstruction and suspicion for developing acute cholecystitis. Correlate with liver function tests and for Devine sign. Could consider further evaluation with MRCP, right upper quadrant ultrasound or HIDA scan depending upon clinical suspicion and specific question to be addressed. Consistent with clinical picture. Pain controlled at this time. Will admit for further eval. Discussed case with Dr. Manzo, GI, will consult. MRCP in am. Discussed case with Dr. Pino, gen surg, agrees w/ plan, will consult. Rocephin and flagyl started in ED. Will cover for urine as well. Discussed case with Dr. Wren, accepted patient for admission. Patient in agreement with plan and need for admission. <Becky North PA-C - Last Filed: 01/31/24 02:08> Medical Records Attestation: I reviewed the patient's medical records. <RENE Myers Last Filed: 01/31/24 02:08> Lab Data Attestation: I reviewed the patient's lab results. <Becky North PA-C - Last Filed: 01/31/24 02:08> Result diagrams: 01/30/24 22:46 01/30/24 22:46 <RENE Myers Last Filed: 01/31/24 02:08> Labs: Lab Results 01/30/24 01/30/24 Range/Units 22:46 23:44 WBC 6.3 (4.5-10.0) K/mm3 RBC 4.36 (4.2-5.4) M/mm3 Hgb 13.8 D (12.0-15.0) g/dL Hct 40.5 (37.0-47.0) % MCV 92.9 (80-100) fl MCH 31.7 (26-34) pg MCHC 34.1 (32-36) g/dl RDW 14.6 H (11.5-14.5) % Plt Count 164 (150-375) k/mm3 MPV 11.4 H (7.4-10.4) fl Immature Gran % (Auto) 0.2 (0-0.5) % Neut % (Auto) 80.0 H (45.5-73.1) % Lymph % (Auto) 12.3 L (18.3-44.2) % [place] % (Auto) 6.7 (2.6-8.5) % Eos % (Auto) 0.2 (0-4.4) % Baso % (Auto) 0.6 (0.2-1.2) % Lymph # (Auto) 0.77 L (0.9-3.2) K/mm3 [place] # (Auto) 0.4 (0.1-0.6) K/mm3 Eos # (Auto) 0.0 (0-0.3) K/mm3 Baso # (Auto) 0.0 (0.0-0.1) K/mm3 Abs Immat Gran (auto) 0.01 (0.00-0.031) K/mm3 Absolute Neuts (auto) 5.0 (1.3-6.7) K/mm3 Absolute Nucleated RBC 0.000 (0.0-0.012) K/mm3 Nucleated RBC % 0.0 (0.0-0.2) % Sodium 142 (137-145) mmol/L Potassium 3.9 (3.4-5.0) mmol/L Chloride 105 (98-107) mmol/L Carbon Dioxide 21 L (22-30) mmol/L Anion Gap 16 H (4-12) mmol/L BUN 18 H (7-17) mg/dL Creatinine 0.60 L (0.7-1.0) mg/dL Estim Creat Clear Calc 80 ml/min Estimated GFR > 60 (59 - ) Glucose 118 H (65-110) mg/dL Calcium 10.9 H (8.4-10.2) mg/dL Total Bilirubin 2.4 H (0.2-1.3) mg/dL AST 352 H (14-36) U/L ALT 99 H (6-35) U/L Alkaline Phosphatase 279 H (38-126) U/L Total Protein 10.0 H (6.3-8.2) g/dL Albumin 5.0 (3.5-5.1) g/dL Lipase 193 (23-300) U/L Urine Color Yellow (Yellow) Urine Appearance Clear (Clear) Urine pH 7.5 (5.0-9.0) Ur Specific [place] 1.020 (1.001-1.035) Urine Protein Negative (Negative) mg/dL Urine Glucose (UA) Negative (Negative) mg/dL Urine Ketones Trace H (Negative) mg/dL Ur Blood (Man) Negative (Negative) Urine Nitrate Negative (Negative) Urine Bilirubin Negative (Negative) Urine Urobilinogen 1.0 (<2.0) mg/dL Leukocyte Esterase Rfl 3+ H (Negative) SOULEYMANE/UL Urine RBC 0-2 (0-2) /hpf Urine WBC 21-50 H (0-3) /hpf Ur Squamous Epith Cells Occasional (Few) /hpf Urine Bacteria None seen /hpf Urine Casts 0-2 <Becky North PA-C - Last Filed: 01/31/24 02:08> Lab Results 01/30/24 01/30/24 Range/Units 22:46 23:44 WBC 6.3 (4.5-10.0) K/mm3 RBC 4.36 (4.2-5.4) M/mm3 Hgb 13.8 D (12.0-15.0) g/dL Hct 40.5 (37.0-47.0) % MCV 92.9 (80-100) fl MCH 31.7 (26-34) pg MCHC 34.1 (32-36) g/dl RDW 14.6 H (11.5-14.5) % Plt Count 164 (150-375) k/mm3 MPV 11.4 H (7.4-10.4) fl Immature Gran % (Auto) 0.2 (0-0.5) % Neut % (Auto) 80.0 H (45.5-73.1) % Lymph % (Auto) 12.3 L (18.3-44.2) % [place] % (Auto) 6.7 (2.6-8.5) % Eos % (Auto) 0.2 (0-4.4) % Baso % (Auto) 0.6 (0.2-1.2) % Lymph # (Auto) 0.77 L (0.9-3.2) K/mm3 [place] # (Auto) 0.4 (0.1-0.6) K/mm3 Eos # (Auto) 0.0 (0-0.3) K/mm3 Baso # (Auto) 0.0 (0.0-0.1) K/mm3 Abs Immat Gran (auto) 0.01 (0.00-0.031) K/mm3 Absolute Neuts (auto) 5.0 (1.3-6.7) K/mm3 Absolute Nucleated RBC 0.000 (0.0-0.012) K/mm3 Nucleated RBC % 0.0 (0.0-0.2) % Sodium 142 (137-145) mmol/L Potassium 3.9 (3.4-5.0) mmol/L Chloride 105 (98-107) mmol/L Carbon Dioxide 21 L (22-30) mmol/L Anion Gap 16 H (4-12) mmol/L BUN 18 H (7-17) mg/dL Creatinine 0.60 L (0.7-1.0) mg/dL Estim Creat Clear Calc 80 ml/min Estimated GFR > 60 (59 - ) Glucose 118 H (65-110) mg/dL Calcium 10.9 H (8.4-10.2) mg/dL Total Bilirubin 2.4 H (0.2-1.3) mg/dL AST 352 H (14-36) U/L ALT 99 H (6-35) U/L Alkaline Phosphatase 279 H (38-126) U/L Total Protein 10.0 H (6.3-8.2) g/dL Albumin 5.0 (3.5-5.1) g/dL Lipase 193 (23-300) U/L Urine Color Yellow (Yellow) Urine Appearance Clear (Clear) Urine pH 7.5 (5.0-9.0) Ur Specific [place] 1.020 (1.001-1.035) Urine Protein Negative (Negative) mg/dL Urine Glucose (UA) Negative (Negative) mg/dL Urine Ketones Trace H (Negative) mg/dL Ur Blood (Man) Negative (Negative) Urine Nitrate Negative (Negative) Urine Bilirubin Negative (Negative) Urine Urobilinogen 1.0 (<2.0) mg/dL Leukocyte Esterase Rfl 3+ H (Negative) SOULEYMANE/UL Urine RBC 0-2 (0-2) /hpf Urine WBC 21-50 H (0-3) /hpf Ur Squamous Epith Cells Occasional (Few) /hpf Urine Bacteria None seen /hpf Urine Casts 0-2 <Whitley Sánchez MD - Last Filed: 01/31/24 02:34> Imaging Data Attestation: I personally reviewed and interpreted this imaging study as follows: <Becky North PA-C - Last Filed: 01/31/24 02:08> Radiologist's impression: ITS Impressions Abdomen/Pelvis CT 01/30/24 23:48 IMPRESSION: 1. Likely choledocholithiasis with secondary biliary obstruction and suspicion for developing acute cholecystitis. Correlate with liver function tests and for Devine sign. Could consider further evaluation with MRCP, right upper quadrant ultrasound or HIDA scan depending upon clinical suspicion and specific question to be addressed. 2. Acute to subacute L1 and L3 compression fractures which are new since 3 months prior. <RENE Myers Last Filed: 01/31/24 02:08> ITS Impressions Abdomen/Pelvis CT 01/30/24 23:48 IMPRESSION: 1. Likely choledocholithiasis with secondary biliary obstruction and suspicion for developing acute cholecystitis. Correlate with liver function tests and for Devine sign. Could consider further evaluation with MRCP, right upper quadrant ultrasound or HIDA scan depending upon clinical suspicion and specific question to be addressed. 2. Acute to subacute L1 and L3 compression fractures which are new since 3 months prior. <Whitley Sánchez MD - Last Filed: 01/31/24 02:34> Discharge Plan Discharge Clinical Impression: Choledocholithiasis, Acute cholecystitis, Abnormal finding on urinalysis <Becky North PA-C - Last Filed: 01/31/24 02:08> Patient Disposition: Still a Patient <RENE Myers Last Filed: 01/31/24 02:08> Condition: Stable <RENE Myers Last Filed: 01/31/24 02:08>
[2024-01-30 22:54] LABS: Basophils Percent Auto 0.6 % (0.2-1.2); Eosinophils Percent Auto 0.2 % (0-4.4); Hematocrit 40.5 % (37.0-47.0); Hemoglobin 13.8 g/dL (12.0-15.0); Immature Granulocyte Absolute 0.01 K/mm3 (0.00-0.031); Immature Granulocyte Percent A 0.2 % (0-0.5); Lymphocytes Absolute Auto 0.77 K/mm3 (0.9-3.2); Lymphocytes Percent Auto 12.3 % (18.3-44.2); Mean Corpuscular HGB Conc 34.1 g/dl (32-36); Mean Corpuscular Hemoglobin 31.7 pg (26-34); Mean Corpuscular Volume 92.9 fl (80-100); Mean Platelet Volume 11.4 fl (7.4-10.4); Monocytes Absolute Auto 0.4 K/mm3 (0.1-0.6); Monocytes Percent Auto 6.7 % (2.6-8.5); Platelet Count Result 164 k/mm3 (150-375); Red Blood Count 4.36 M/mm3 (4.2-5.4); Red Cell Distribution Width 14.6 % (11.5-14.5); White Blood Count 6.3 K/mm3 (4.5-10.0)
[2024-01-30] MEDS: ONDANSETRON INJ 4 MG/2 ML VIAL IV PUSH (22:55)
[2024-01-30] MEDS: MORPHINE SULFATE (*CRX) 4 MG/ML INJ IV PUSH (22:55)
[2024-01-30 23:13] LABS: Alanine Aminotransferase 99 U/L (6-35); Alkaline Phosphatase 279 U/L (38-126); Anion Gap 16 mmol/L (4-12); Aspartate Amino Transferase 352 U/L (14-36); Bilirubin,Total 2.4 mg/dL (0.2-1.3); Blood Urea Nitrogen 18 mg/dL (7-17); Calcium 10.9 mg/dL (8.4-10.2); Carbon Dioxide 21 mmol/L (22-30); Chloride 105 mmol/L (98-107); Estimated CRCL calculation 80 ml/min; Estimated Glomerular Filt Rate > 60; Glucose 118 mg/dL (65-110); Lipase 193 U/L (23-300); Potassium 3.9 mmol/L (3.4-5.0); Sodium 142 mmol/L (137-145)
[2024-01-30] MEDS: SODIUM CHLORIDE 0.9% IV 1,000 ML 999 ML IV CONT (23:43)
[2024-01-30 23:57] LABS: Add Urine Microscopic? YES; Appearance Urine Clear (Clear); Bacteria Urine None Seen /hpf; Bilirubin Urine Negative (Negative); Blood Urine Negative (Negative); Color Urine Yellow (Yellow); Glucose Urine UA Negative (Negative); Ketones Urine Trace mg/dL (Negative); Leukocyte Esterase Ur 3+ LEU/UL (Negative); Nitrate Urine Negative (Negative); Non Pathogenic Casts 0-2; Protein Urine Negative (Negative); RBC Urine 0-2 /hpf (0-2); Squamous Epithelial Cell Urine Occasional /hpf (Few); WBC Urine 21-50 /hpf (0-3); pH Urine 7.5 (5.0-9.0)
[2024-01-31 00:12] VITALS: BP 138/92; PULSE 93; RESP 24; O2SAT 99
--- NOTE | 2024-01-31 01:18 | PM.IMHP ---
H&P: HPI History of Present Illness Date/Time: 01/31/24 01:18 Chief Complaint: right upper quadrant pain Narrative: This is a 58-year-old female with past medical history significant for alcohol dependence, hypertension, stroke, GERD, dyslipidemia. patient comes to the emergency room due to right upper quadrant pain had a similar episode 3 months ago. patient denies any fevers, rigors, chills, night sweats. preliminary workup significant for CT of abdomen and pelvis with choledocholithiasis with biliary obstruction suspicion for development of cholecystitis also found to have compression fractures at the level of L1 and L3. patient has been admitted for further evaluation management and treatment. EXAMINATION: CT abdomen pelvis w con DATE: 01/30/2024 23:33 INDICATION: Right upper quadrant abdominal pain. Abnormal liver function tests. TECHNIQUE: Computed tomography (CT) of the abdomen and pelvis was performed with 100 mL Omnipaque-350 intravenous contrast. Automated exposure control and iterative reconstruction technique were employed. The dose-length product was 263.13 mGy-cm. COMPARISON: 10/30/2023 FINDINGS: Mild dependent atelectasis in the right lower lobe. Heart size is normal. No pericardial effusion. Ectasia of the ascending thoracic aorta the visualized portion which measures up to 3.9 cm. Enlargement of the central pulmonary arteries consistent with pulmonary arterial hypertension. Mild dilation of the common bile duct which measures up to 10 mm in maximal diameter with intraluminal densities at the distal duct likely representing choledocholithiasis. Minimal central intrahepatic ductal or ductal dilation. Liver is otherwise normal. The gallbladder is distended to 4.3 similar with diffuse mild wall thickening but without evident pericholecystic inflammatory stranding but with suggestion of minimal amount of fluid at the karolyn hepatis suspicious for early acute cholecystitis. Spleen, pancreas, bilateral adrenal glands and left kidney are normal. 1.5 cm right renal cyst. There are also small region of cortical scarring at the right kidney likely sequela of chronic infection or infarction. Moderate diverticulosis along the descending and sigmoid colon without adjacent comparison to suggest diverticulitis. No bowel obstruction. Bladder uterus and bilateral adnexa are unremarkable. No free intraperitoneal gas or fluid. No pathologically enlarged abdominal or pelvic lymphadenopathy. Moderate to severe lumbar and lower thoracic spondylosis. Acute to subacute L1 and L3 compression fractures with 20% anterior vertebral body height loss and linear sclerotic fracture lines underlying the mildly depressed superior endplates. Moderate bilateral hip osteoarthritis. IMPRESSION: 1. Likely choledocholithiasis with secondary biliary obstruction and suspicion for developing acute cholecystitis. Correlate with liver function tests and for Devine sign. Could consider further evaluation with MRCP, right upper quadrant ultrasound or HIDA scan depending upon clinical suspicion and specific question to be addressed. 2. Acute to subacute L1 and L3 compression fractures which are new since 3 months prior. Review of Systems Review of Systems: right upper quadrant pain PMFSH Past Medical History Medical History Anxiety and depression CVA (cerebral vascular accident) (2022) Essential hypertension GERD (gastroesophageal reflux disease) With CT evidence of esophagitis and gastritis noted 10/10/2019 Gout Hyperlipidemia Psoriasis Thyroid nodule TIA (transient ischemic attack) October 2023 Surgical History Surgical History History of History of endometrial ablation (2010) Family History Family History Sibling Colon cancer Hypertension Other No problems noted. Mother Hypertension Other Acute myocardial infarction Social History Social History Social History: The patient lives alone. She has 1 son but she is estranged from her son. She has 4 cats. She is a recovering alcoholic. She states that she has drink up to a pint of vodka a day. She used to use cocaine but has not done so in 20 years. She denies history of tobacco use. She does have heavy secondhand smoke exposure and her clothes in belongings smell of smoke. Code status: DNR/DNI per patient request. Nursing staff was at bedside and witnessed discussion of code status and plan of care with patient. Surrogate decision maker: Tory Strauss (friend) Smoking status: Never smoker Alcohol intake: current Drinks per week: 2 Alcohol use details: One pint of alcohol a day. Substance use: former Substance use type: crack/cocaine Do You Feel Safe in your Home?: Yes Lack of Transportation: No Lack of Food: Never True Current Housing: I Have Housing Concerned About Future Housing: No Difficulty Paying Gas/Electric Bills: YES Difficulty Paying for Meds: No Currently Unemployed: No Education: High School Diploma/GED Difficulty w/ Childcare or Family Care: No Spiritual care concerns: No Meds Home Medications and Allergies Home Medications Medication Instructions Recorded Confirmed Type atorvastatin 80 mg tablet 80 mg PO DAILY 10/30/23 10/30/23 History clobetasol 0.05 % topical ointment 1 applic topical TID 10/30/23 10/30/23 History folic acid 1 mg tablet 1 mg PO DAILY 10/30/23 10/30/23 History losartan 100 mg tablet 100 mg PO DAILY 10/30/23 10/30/23 History aspirin 81 mg tablet 81 mg PO DAILY 10/31/23 10/31/23 History ciprofloxacin HCl 500 mg tablet 500 mg PO Q12H #14 tabs 11/02/23 Rx hydrocodone 5 mg-acetaminophen 325 1 tablet PO Q4H PRN Pain Rated 4-6 11/02/23 Rx mg tablet #12 tabs Allergies Allergy/AdvReac Type Severity Reaction Status Date / Time Penicillins Allergy Severe HIVES Verified 01/30/24 22:39 Sulfa (Sulfonamide AdvReac Severe HIVES Verified 01/30/24 22:39 Antibiotics) Vital Signs Vital Signs - 24 hr 01/30/24 22:32 01/31/24 00:12 Temperature 97.6 F Pulse Rate 73 93 Respiratory Rate 27 H 24 H Blood Pressure 178/101 H 138/92 H Pulse Oximetry 96 99 Oxygen Delivery Room Air Exam Narrative: patient is laying in a stretcher Const: General: comfortable, no acute distress, well developed, alert, awake and average body habitus Nutritional Appearance: average body habitus Orientation/consciousness: patient oriented x3 Other: looks older than stated age HENMT: Head: normal to inspection, normocephalic and atraumatic Ears: hearing grossly normal bilaterally Face/Nose/Sinus: normal facial exam Face and sinus: normal facial exam Eyes: General: appearance normal, both eyes and all related structures Pupils: Equal, round and reactive pupils present EOM: EOMs intact bilaterally Neck: Neck: full ROM, no lymphadenopathy and no JVD Thyroid: thyroid normal Lymphatic: no lymphadenopathy noted Resp: Effort & Inspection: normal respiratory effort and able to speak in complete sentences Auscultation: clear to auscultation bilaterally Cardio: Jugular venous distension: no JVD Rate: regular rate Rhythm: regular rhythm Heart sounds: S1 normal heart sound present and S2 normal heart sound present GI: GI Palp: Yes Soft to palpation, Yes Tenderness to palpation present (GI) ( right upper quadrant), No Guarding due to palpation present (GI), No Rigid due to palpation, Yes No hepatosplenomegaly present and Yes Other GI palpation findings present ( Devine positive) : General: Yes deferred Skin: Rashes: no rashes Wounds: no wounds Neuro: General: patient oriented x3 and CN's II-XI intact bilaterally Cranial nerves: Yes CN's II-XII intact bilaterally and Yes Equal, round and reactive pupils present Cognition (Neuro): normal cognition Speech: normal speech Gait exam (Neuro): Normal gait present Motor exam (neuro): 5/5 motor strength present throughout Extrem: General: normal to inspection, full ROM, no joint enlargement and no pedal edema H&P: Results Labs Labs: Short CBC 01/30/24 Range/Units 22:46 WBC 6.3 (4.5-10.0) K/mm3 Hgb 13.8 D (12.0-15.0) g/dL Hct 40.5 (37.0-47.0) % Plt Count 164 (150-375) k/mm3 BMP 01/30/24 22:46 Sodium 142 Potassium 3.9 Chloride 105 Carbon Dioxide 21 L BUN 18 H Creatinine 0.60 L Glucose 118 H Calcium 10.9 H Liver Function 01/30/24 Range/Units 22:46 Total Bilirubin 2.4 H (0.2-1.3) mg/dL AST 352 H (14-36) U/L ALT 99 H (6-35) U/L Alkaline Phosphatase 279 H (38-126) U/L Albumin 5.0 (3.5-5.1) g/dL Urine 01/30/24 Range/Units 23:44 Urine Color Yellow (Yellow) Urine Appearance Clear (Clear) Urine pH 7.5 (5.0-9.0) Ur Specific [place] 1.020 (1.001-1.035) Urine Protein Negative (Negative) mg/dL Urine Glucose (UA) Negative (Negative) mg/dL Assessment and Plan Assessment and plan (1) Acute cholecystitis: Code(s): K81.0 - Acute cholecystitis Status: Acute Assessment and Plan: admit to regular medical floor started on Rocephin and Flagyl GI consult General surgery consult (2) Choledocholithiasis: Code(s): K80.50 - Calculus of bile duct without cholangitis or cholecystitis without obstruction Status: Acute Assessment and Plan: GI consult General surgery consult (3) Alcohol abuse: Code(s): F10.10 - Alcohol abuse, uncomplicated Status: Acute Assessment and Plan: CIWA as needed (4) GERD (gastroesophageal reflux disease): Qualifiers: Esophagitis bleeding: without hemorrhage Esophagitis presence: with esophagitis Qualified Code(s): K21.00 - Gastro-esophageal reflux disease with esophagitis, without bleeding Code(s): K21.9 - Gastro-esophageal reflux disease without esophagitis Status: Acute Assessment and Plan: PPI (5) UTI (urinary tract infection): Code(s): N39.0 - Urinary tract infection, site not specified Status: Acute Assessment and Plan: on Rocephin Hospitalist MIPS Advance Care Plan I have confirmed that the patient's Advanced Care Plan is present, code status is documented, or surrogate decision maker is listed in patient medical record.: Yes Medication Reconciliation I have utilized all available resources to obtain, update and review the patients current medications (includes all prescriptions, OTC, herbals, cannabis, and nutritional supplements).: Yes
--- NOTE | 2024-01-31 01:52 | PC.NURSE ---
This Rn attempted to get blood cultures on pt. Rn was able to get a flash but blood stopped flowing. RN asked senior technical support analyst Mandy to try and same thing happened for her. senior technical support analyst called [facility] to come and try.
[2024-01-31] MEDS: ONDANSETRON INJ 4 MG/2 ML VIAL IV PUSH (02:27)
[2024-01-31] MEDS: SODIUM CHLORIDE 0.9% IV 1,000 ML 100 ML IV CONT (02:27)
[2024-01-31 02:44] VITALS: BP 129/72; PULSE 91; RESP 18; O2SAT 99
[2024-01-31 03:00] VITALS: BP 162/98; PULSE 76; RESP 16; TEMP 37.2; O2SAT 99; BMI 20.3
--- NOTE | 2024-01-31 03:00 | ADMGEN ---
This patient, Zuleyka Max, was admitted to [facility] Surg Room 316-02. Patient/family oriented to hospital policies and general routines including ID bracelet, bed and alarms, visiting hours, pain management, procedures, bathroom and other care routines, personal items, smoking policy, room service/diet, and visiting hours. Information on how to activate the Rapid Response Team has been discussed. Patient/Family are encouraged to report perceived risks to care and to ask questions if they do not understand what they are told or what they should do.
[2024-01-31] MEDS: metroNIDAZOLE 500 MG/ISO 100ML 500 MG/100 ML BAG 100 MG IVPB ×3 (03:47→19:56)
[2024-01-31] MEDS: DEXTROSE 5%/LACTATED RINGERS 1,000 ML 65 ML IV CONT (03:49)
[2024-01-31] MEDS: HYDROmorphone HCL INJ (*CRX) 1 MG/ML SYR IV PUSH ×4 (03:56→19:58)
--- NOTE | 2024-01-31 04:19 | PC.NURSE ---
read, reviewed and agree with Ana Garcia RN charting and documentation
[2024-01-31 05:20] VITALS: BP 158/83; PULSE 80; RESP 16; TEMP 36.3; O2SAT 98
--- NOTE | 2024-01-31 08:05 | PM.IMPN ---
Progress Note: A&P Assessment and Plan (1) Acute cholecystitis: Code(s): K81.0 - Acute cholecystitis Status: Acute Assessment and Plan: admit to regular medical floor started on Rocephin and Flagyl GI consult General surgery consult - clear liquid now- npo at midnight-egd in am 01/31 (2) Choledocholithiasis: Code(s): K80.50 - Calculus of bile duct without cholangitis or cholecystitis without obstruction Status: Acute Assessment and Plan: GI consult General surgery consult - see above (3) Alcohol abuse: Code(s): F10.10 - Alcohol abuse, uncomplicated Status: Acute Assessment and Plan: CIWA as needed (4) GERD (gastroesophageal reflux disease): Qualifiers: Esophagitis bleeding: without hemorrhage Esophagitis presence: with esophagitis Qualified Code(s): K21.00 - Gastro-esophageal reflux disease with esophagitis, without bleeding Code(s): K21.9 - Gastro-esophageal reflux disease without esophagitis Status: Acute Assessment and Plan: PPI (5) UTI (urinary tract infection): Code(s): N39.0 - Urinary tract infection, site not specified Status: Acute Assessment and Plan: on Rocephin Time Spent With Patient Time: DVT prophylaxis- SCD Time with patient: Greater than 35 minutes Subjective Date/time seen: 01/31/24 08:05 Interval history: right upper quadrant pain Narrative retreieved from This is a 58-year-old female with past medical history significant for alcohol dependence, hypertension, stroke, GERD, dyslipidemia. patient comes to the emergency room due to right upper quadrant pain had a similar episode 3 months ago. patient denies any fevers, rigors, chills, night sweats. preliminary workup significant for CT of abdomen and pelvis with choledocholithiasis with biliary obstruction suspicion for development of cholecystitis also found to have compression fractures at the level of L1 and L3. patient has been admitted for further evaluation management and treatment. 01/30- pt is seen and examined. Repots some abd pain but a lot better now. Some nausea but no vomiting. GI was consulted and plan for egd in am. Clear liquid now, NPO at midnight. Review of Systems Review of Systems: right upper quadrant pain Exam Narrative: patient is laying in a stretcher Const: General: comfortable, no acute distress, well developed, alert, awake and average body habitus Nutritional Appearance: average body habitus Orientation/consciousness: patient oriented x3 Other: looks older than stated age HENMT: Head: normal to inspection, normocephalic and atraumatic Ears: hearing grossly normal bilaterally Face/Nose/Sinus: normal facial exam Face and sinus: normal facial exam Eyes: General: appearance normal, both eyes and all related structures Pupils: Equal, round and reactive pupils present EOM: EOMs intact bilaterally Neck: Neck: full ROM, no lymphadenopathy and no JVD Thyroid: thyroid normal Lymphatic: no lymphadenopathy noted Resp: Effort & Inspection: normal respiratory effort and able to speak in complete sentences Auscultation: clear to auscultation bilaterally Cardio: Jugular venous distension: no JVD Rate: regular rate Rhythm: regular rhythm Heart sounds: S1 normal heart sound present and S2 normal heart sound present : General: Yes deferred Skin: Rashes: no rashes Wounds: no wounds Neuro: General: patient oriented x3 and CN's II-XI intact bilaterally Cranial nerves: Yes CN's II-XII intact bilaterally and Yes Equal, round and reactive pupils present Cognition (Neuro): normal cognition Speech: normal speech Gait exam (Neuro): Normal gait present Motor exam (neuro): 5/5 motor strength present throughout Extrem: General: normal to inspection, full ROM, no joint enlargement and no pedal edema Objective Data Vital Signs Vital Signs: Vital Signs - 24 hr 01/30/24 22:32 01/31/24 00:12 01/31/24 02:44 Temperature 97.6 F Pulse Rate 73 93 91 Respiratory Rate 27 H 24 H 18 Blood Pressure 178/101 H 138/92 H 129/72 Pulse Oximetry 96 99 99 Oxygen Delivery Room Air 01/31/24 03:00 01/31/24 05:20 Temperature 98.9 F 97.4 F L Pulse Rate 76 80 Respiratory Rate 16 16 Blood Pressure 162/98 H 158/83 H Pulse Oximetry 99 98 Oxygen Delivery Intake/Output Intake/Output: Intake & Output 01/28/24 01/29/24 01/30/24 01/31/24 23:59 23:59 23:59 23:59 Intake Total 1050 Balance 1050 Meds/Results Medications: Active Medications Generic Name Dose Route Start Last Admin Trade Name Freq PRN Reason Stop Dose Admin Dextrose 12.5 gm 01/31/24 01:50 Dextrose 50% 25 Gm/50 Ml Syringe IV PUSH PRN PRN Hypoglycemia Protocol Glucagon 1 mg 01/31/24 01:50 Glucagon For Inj 1 Mg Vial IM PRN PRN Hypoglycemia Protocol Glucose 15 gm 01/31/24 01:50 Glucose Oral Gel 15 Gm Of Glucse In 37.5 Gm Tube PO PRN PRN Hypoglycemia Protocol Hydromorphone HCl 1 mg 01/31/24 03:26 Hydromorphone Hcl Inj (*Crx) 1 Mg/Ml Syr IV PUSH Q3H PRN Pain Rated 7-10 Ceftriaxone Sodium 1 gm in 50 mls @ 100 mls/hr 02/01/24 03:00 Rocephin 1 Gm/Ns 50 Ml IVPB Q24H JENY Metronidazole 500 mg in 100 mls @ 100 mls/hr 01/31/24 12:00 Flagyl 500 Mg/Iso Soln 100 Ml IVPB Q8H JENY Dextrose 1,000 mls @ 100 mls/hr 01/31/24 01:50 Dextrose 5% 1,000 Ml IVPB PRN PRN Hypoglycemia Protocol Dextrose/Lactated Ringer's 1,000 mls @ 65 mls/hr 01/31/24 03:30 01/31/24 03:49 Dextrose 5%/Lactated Ringers IV CONT 65 mls/hr .[id number] JENY Administration Morphine Sulfate 4 mg 01/31/24 01:37 Morphine Sulfate (*Crx) 4 Mg/Ml Inj IV PUSH Q2H PRN Pain Rated 7-10 Ondansetron HCl 4 mg 01/31/24 01:37 Ondansetron Inj 4 Mg/2 Ml Vial IV PUSH Q4H PRN Nausea Radiology Results: ITS Impressions Abdomen/Pelvis CT 01/30/24 23:48 IMPRESSION: 1. Likely choledocholithiasis with secondary biliary obstruction and suspicion for developing acute cholecystitis. Correlate with liver function tests and for Devine sign. Could consider further evaluation with MRCP, right upper quadrant ultrasound or HIDA scan depending upon clinical suspicion and specific question to be addressed. 2. Acute to subacute L1 and L3 compression fractures which are new since 3 months prior. Labs Labs: Laboratory Results - last 24 hr 01/30/24 01/30/24 22:46 23:44 WBC 6.3 RBC 4.36 Hgb 13.8 D Hct 40.5 MCV 92.9 MCH 31.7 MCHC 34.1 RDW 14.6 H Plt Count 164 MPV 11.4 H Immature Gran % (Auto) 0.2 Neut % (Auto) 80.0 H Lymph % (Auto) 12.3 L [place] % (Auto) 6.7 Eos % (Auto) 0.2 Baso % (Auto) 0.6 Lymph # (Auto) 0.77 L [place] # (Auto) 0.4 Eos # (Auto) 0.0 Baso # (Auto) 0.0 Abs Immat Gran (auto) 0.01 Absolute Neuts (auto) 5.0 Absolute Nucleated RBC 0.000 Nucleated RBC % 0.0 Sodium 142 Potassium 3.9 Chloride 105 Carbon Dioxide 21 L Anion Gap 16 H BUN 18 H Creatinine 0.60 L Estim Creat Clear Calc 80 Estimated GFR > 60 Glucose 118 H Calcium 10.9 H Total Bilirubin 2.4 H AST 352 H ALT 99 H Alkaline Phosphatase 279 H Total Protein 10.0 H Albumin 5.0 Lipase 193 Urine Color Yellow Urine Appearance Clear Urine pH 7.5 Ur Specific [place] 1.020 Urine Protein Negative Urine Glucose (UA) Negative Urine Ketones Trace H Ur Blood (Man) Negative Urine Nitrate Negative Urine Bilirubin Negative Urine Urobilinogen 1.0 Leukocyte Esterase Rfl 3+ H Urine RBC 0-2 Urine WBC 21-50 H Ur Squamous Epith Cells Occasional Urine Bacteria None seen Urine Casts 0-2 Quality VTE Prophylaxis VTE prophylaxis: mechanical ordered
[2024-01-31] MEDS: LORazepam INJ (*CRX) 2 MG/ML VIAL 0.5 MG IV PUSH (08:44)
--- NOTE | 2024-01-31 10:03 | PM.CNGS ---
Assessment and Plan Assessment and plan (1) Choledocholithiasis: Code(s): K80.50 - Calculus of bile duct without cholangitis or cholecystitis without obstruction Status: Acute Assessment and Plan: CT suggesting choledocholithiasis and possible acute cholecystitis. MRCP ordered today and showed choledocholithiasis with intrahepatic and extrahepatic biliary duct dilatation and gallbladder distension. Will await GI consultation for choledocholithiasis and possible ERCP. I discussed with the patient that we would eventually recommend an interval laparoscopic cholecystectomy to prevent recurrence and future complications related to her gallbladder. When the patient was seen in October, she wanted to avoid surgery, but is agreeable to surgery at this time due to having recurrent issues. Will continue to follow along and await GI's recommendations. (2) Alcohol abuse: Code(s): F10.10 - Alcohol abuse, uncomplicated Status: Acute Assessment and Plan: Recommended cessation. No current signs of withdrawal. Imaging did not show any signs of advanced liver disease. Will order coags with morning labs. (3) Essential hypertension: Code(s): I10 - Essential (primary) hypertension Status: Acute (4) CVA (cerebral vascular accident): Onset Date: 2022 Code(s): I63.9 - Cerebral infarction, unspecified Status: Acute Assessment and Plan: History of CVA over a year ago and TIA 3 months ago. Plan I have discussed the patient's case and plan of care with Dr. Pino. Thank you for allowing us to see the patient in consultation and we will continue to follow along with you. History of Present Illness Consult details Consult date: 01/31/24 Reason for consult: other (Choledocholithiasis, cholecystitis) Requesting physician: Becky North PA-C Narrative: This is a 58-year-old woman with past medical history of alcohol abuse, hypertension, intermittent methamphetamine use, and history of CVA about a year ago, who we have been asked to see in surgical consultation for choledocholithiasis and cholecystitis. She was seen by our service 3 months ago for acute cholecystitis. Abdominal ultrasound on 10/31/2023 showed gallbladder sludge with gallbladder wall thickening and biliary dilatation, as well as fatty liver. She was adamant about avoiding surgery at that time and was treated conservatively. Plan was to schedule an interval cholecystectomy, but patient did not follow-up. She reports having financial issues and increased alcohol intake over the last few months. There was a point where she was drinking a pint of vodka daily. She reports only drinking a couple drinks every couple days recently, but admits to binge drinking on occasion as well. She has reportedly been admitted for her alcohol use in the past few months on at least 1 occasion, but she cannot recall where she was admitted. She denies any recent pancreatitis. Yesterday, about 2 hours after eating a deli sandwich for dinner, she had a sudden onset of right upper quadrant abdominal pain. This pain was similar to her episode in October. She had severe nausea and was forcing herself to vomit. No alleviating factors for her pain, therefore she came into the ED for evaluation. Labs significant for a white blood cell count 6300, total bilirubin 2.4, AST 352, ALT 99, alk-phos 279, lipase 193. CT scan of the abdomen and pelvis shows likely choledocholithiasis with secondary biliary obstruction and suspicion for developing acute cholecystitis, and acute to subacute L1 and L3 compression fractures which are new since 3 months prior. She was admitted to the hospitalist. GI has also been consulted and MRCP was ordered. She is on IV antibiotics. Her only complaint this morning is the right upper quadrant abdominal pain. She no longer feels nauseous. Her only previous abdominal surgery is a . She reports financial stress as she has been out of work due to her health issues and drinking. When asking about her social history, she also admits to using methamphetamine a few days ago and having a history of meth use years ago. Review of Systems Review of Systems: All systems reviewed & are unremarkable except as noted in HPI and below [facility] Past Medical History Medical History (Updated 01/31/24 @ 10:16 by JOSE GUADALUPE Monte) Anxiety and depression CVA (cerebral vascular accident) (2022) Essential hypertension GERD (gastroesophageal reflux disease) With CT evidence of esophagitis and gastritis noted 10/10/2019 Gout History of substance abuse Hyperlipidemia Psoriasis Thyroid nodule TIA (transient ischemic attack) October 2023 Surgical History Surgical History History of History of endometrial ablation (2010) Family History Family History Sibling Colon cancer Hypertension Other No problems noted. Mother Hypertension Other Acute myocardial infarction Social History Social History Social History: The patient lives alone. She has 1 son but she is estranged from her son. She has 4 cats. She is a recovering alcoholic. She states that she has drink up to a pint of vodka a day. She used to use cocaine but has not done so in 20 years. She denies history of tobacco use. She does have heavy secondhand smoke exposure and her clothes in belongings smell of smoke. Code status: DNR/DNI per patient request. Nursing staff was at bedside and witnessed discussion of code status and plan of care with patient. Surrogate decision maker: Tory Strauss (friend) Smoking status: Never smoker Alcohol intake: current Drinks per week: 2 Alcohol use details: One pint of alcohol a day. Substance use: current Substance use type: marijuana Do You Feel Safe in your Home?: No Lack of Transportation: No Lack of Food: Never True Current Housing: I Do Not Have Housing Concerned About Future Housing: No Difficulty Paying Gas/Electric Bills: YES Difficulty Paying for Meds: YES Currently Unemployed: No Education: High School Diploma/GED Difficulty w/ Childcare or Family Care: No Spiritual care concerns: No Meds Home Medications and Allergies Home Medications Medication Instructions Recorded Confirmed Type atorvastatin 80 mg tablet 80 mg PO DAILY 10/30/23 01/31/24 History clobetasol 0.05 % topical ointment 1 applic topical TID psoriasis 10/30/23 01/31/24 History folic acid 1 mg tablet 1 mg PO DAILY 10/30/23 01/31/24 History losartan 100 mg tablet 100 mg PO DAILY 10/30/23 01/31/24 History aspirin 81 mg tablet 81 mg PO DAILY 10/31/23 01/31/24 History hydrocodone 5 mg-acetaminophen 325 1 tablet PO Q4H PRN Pain Rated 4-6 11/02/23 01/31/24 Rx mg tablet #12 tabs famotidine 20 mg tablet 20 mg PO DAILY 01/31/24 01/31/24 History halobetasol propionate 0.05 % 1 applic topical TID psoriasis 01/31/24 01/31/24 History topical ointment mupirocin 2 % topical ointment 1 applic topical TID psoriasis 01/31/24 01/31/24 History Allergies Allergy/AdvReac Type Severity Reaction Status Date / Time Penicillins Allergy Severe HIVES Verified 01/30/24 22:39 Sulfa (Sulfonamide AdvReac Severe HIVES Verified 01/30/24 22:39 Antibiotics) Vital Signs Vital Signs - 24 hr 01/30/24 22:32 01/31/24 00:12 01/31/24 02:44 Temperature 97.6 F Pulse Rate 73 93 91 Respiratory Rate 27 H 24 H 18 Blood Pressure 178/101 H 138/92 H 129/72 Pulse Oximetry 96 99 99 Oxygen Delivery Room Air 01/31/24 03:00 01/31/24 05:20 01/31/24 08:45 Temperature 98.9 F 97.4 F L Pulse Rate 76 80 Respiratory Rate 16 16 Blood Pressure 162/98 H 158/83 H Pulse Oximetry 99 98 Oxygen Delivery Room Air Exam Const: General: comfortable and no acute distress Nutritional Appearance: average body habitus Orientation/consciousness: patient oriented x3 HENMT: Head: normocephalic and atraumatic Ears: hearing grossly normal bilaterally Mouth: Yes moist mucous membranes Eyes: General: appearance normal, both eyes and all related structures Pupils: Equal, round and reactive pupils present Neck: Neck: normal visual inspection and full ROM Resp: Effort & Inspection: no respiratory distress Auscultation: clear to auscultation bilaterally Cardio: Rate: regular rate Rhythm: regular rhythm Heart sounds: S1 normal heart sound present and S2 normal heart sound present Peripheral pulses: Peripheral pulses 2+ throughout GI: Inspection: non-distended, scar (Pfannenstiel scar) and no visible herniation GI Palp: Yes Soft to palpation, Yes Tenderness to palpation present (GI) (Focal tenderness in right upper quadrant), No Guarding due to palpation present (GI), Yes No hepatosplenomegaly present and No Rebound tenderness present Percussion: Yes normal to percussion Auscultation: normal bowel sounds Skin: General skin exam: normal color Neuro: General: moves all extremities and no focal motor deficits Cranial nerves: Yes Equal, round and reactive pupils present Speech: normal speech Motor exam (neuro): 5/5 motor strength present throughout Extrem: General: normal to inspection and no edema Psych: Mental Status: mental status grossly normal Attitude: cooperative Insight: Good insight present (Psych) Judgement: Good judgement present (Psych) Results Labs 01/30/24 22:46 01/30/24 22:46 Labs: Abnormal lab results 01/30/24 01/30/24 Range/Units 22:46 23:44 RDW 14.6 H (11.5-14.5) % MPV 11.4 H (7.4-10.4) fl Neut % (Auto) 80.0 H (45.5-73.1) % Lymph % (Auto) 12.3 L (18.3-44.2) % Lymph # (Auto) 0.77 L (0.9-3.2) K/mm3 Carbon Dioxide 21 L (22-30) mmol/L Anion Gap 16 H (4-12) mmol/L BUN 18 H (7-17) mg/dL Creatinine 0.60 L (0.7-1.0) mg/dL Glucose 118 H (65-110) mg/dL Calcium 10.9 H (8.4-10.2) mg/dL Total Bilirubin 2.4 H (0.2-1.3) mg/dL AST 352 H (14-36) U/L ALT 99 H (6-35) U/L Alkaline Phosphatase 279 H (38-126) U/L Total Protein 10.0 H (6.3-8.2) g/dL Urine Ketones Trace H (Negative) mg/dL Leukocyte Esterase Rfl 3+ H (Negative) SOULEYMANE/UL Urine WBC 21-50 H (0-3) /hpf Diabetes panel 01/30/24 Range/Units 22:46 Sodium 142 (137-145) mmol/L Potassium 3.9 (3.4-5.0) mmol/L Chloride 105 (98-107) mmol/L Carbon Dioxide 21 L (22-30) mmol/L BUN 18 H (7-17) mg/dL Creatinine 0.60 L (0.7-1.0) mg/dL Glucose 118 H (65-110) mg/dL Calcium 10.9 H (8.4-10.2) mg/dL AST 352 H (14-36) U/L ALT 99 H (6-35) U/L Alkaline Phosphatase 279 H (38-126) U/L Total Protein 10.0 H (6.3-8.2) g/dL Albumin 5.0 (3.5-5.1) g/dL Calcium panel 01/30/24 Range/Units 22:46 Calcium 10.9 H (8.4-10.2) mg/dL Albumin 5.0 (3.5-5.1) g/dL Pituitary panel 01/30/24 Range/Units 22:46 Sodium 142 (137-145) mmol/L Potassium 3.9 (3.4-5.0) mmol/L Chloride 105 (98-107) mmol/L Carbon Dioxide 21 L (22-30) mmol/L BUN 18 H (7-17) mg/dL Creatinine 0.60 L (0.7-1.0) mg/dL Glucose 118 H (65-110) mg/dL Calcium 10.9 H (8.4-10.2) mg/dL Adrenal panel 01/30/24 Range/Units 22:46 Sodium 142 (137-145) mmol/L Potassium 3.9 (3.4-5.0) mmol/L Chloride 105 (98-107) mmol/L Carbon Dioxide 21 L (22-30) mmol/L BUN 18 H (7-17) mg/dL Creatinine 0.60 L (0.7-1.0) mg/dL Glucose 118 H (65-110) mg/dL Calcium 10.9 H (8.4-10.2) mg/dL Total Bilirubin 2.4 H (0.2-1.3) mg/dL AST 352 H (14-36) U/L ALT 99 H (6-35) U/L Alkaline Phosphatase 279 H (38-126) U/L Total Protein 10.0 H (6.3-8.2) g/dL Albumin 5.0 (3.5-5.1) g/dL All other labs normal. Imaging Additional studies: ITS Impressions Abdomen/Pelvis CT 01/30/24 23:48 IMPRESSION: 1. Likely choledocholithiasis with secondary biliary obstruction and suspicion for developing acute cholecystitis. Correlate with liver function tests and for Devine sign. Could consider further evaluation with MRCP, right upper quadrant ultrasound or HIDA scan depending upon clinical suspicion and specific question to be addressed. 2. Acute to subacute L1 and L3 compression fractures which are new since 3 months prior. MRCP 01/31/24 09:59 IMPRESSION: 1. Choledocholithiasis with intrahepatic and extrahepatic biliary duct dilatation and gallbladder distention.
--- NOTE | 2024-01-31 12:33 | P.CONGI_ITS ---
Assessment and Plan Assessment and plan (1) Choledocholithiasis: Code(s): K80.50 - Calculus of bile duct without cholangitis or cholecystitis without obstruction Status: Acute Assessment and Plan: will proceed with ercp tomorrow on iv abx, surgery on board for interval cholecystectomy (2) Acute cholecystitis: Code(s): K81.0 - Acute cholecystitis Status: Acute Assessment and Plan: on abx (3) Elevated liver enzymes: Code(s): R74.8 - Abnormal levels of other serum enzymes Status: Acute Assessment and Plan: biliary related she is also a drinker advise to stop trend liver enzymes thiamine (4) Alcohol abuse: Code(s): F10.10 - Alcohol abuse, uncomplicated Status: Acute (5) RUQ pain: Code(s): R10.11 - Right upper quadrant pain Status: Acute (6) Nausea and vomiting in adult: Code(s): R11.2 - Nausea with vomiting, unspecified Status: Acute Assessment and Plan: antiemetics, no pancreatitis GI Consult Note Consult date/time: 01/31/24 12:33 Reason for consult: choledocholithiasis HPI: Zuleyka Max is a 58 year old female with past medical history of alcohol abuse, hypertension, intermittent methamphetamine use, and history of CVA about a year ago. She was seen admitted to hospital about 3 months ago for acute cholecystitis, ultrasound on 10/31/2023 showed gallbladder sludge with gallbladder wall thickening and biliary dilatation, as well as fatty liver. She refused surgery at that time and treated only medically. She is a drinker and has been drinking more lately. She denies any recent pancreatitis. She is here with new onset of severe right upper quadrant abdominal pain and nausea forcing herself to vomit. ER Labs white blood cell count 6300, total bilirubin 2.4, AST 352, ALT 99, alk-phos 279, lipase 193. CT scan of the abdomen and pelvis shows likely choledocholithiasis with secondary biliary obstruction and suspicion for developing acute cholecystitis, and acute to subacute L1 and L3 compression fractures which are new since 3 months prior. MRCP confirmed stones in bile d uct- common duct is dilated to 12 mm. There is a 6 x 9 mm stone or cluster of stones in the common bile duct. Review of Systems Constitutional: Constitutional: Denies headache(s) and Denies weakness Eyes: Eyes: Denies blurry vision ENT: Reports Normal hearing present, Denies headache(s) and Denies neck pain Cardiovascular: Cardiovascular: Denies chest pain and Denies dyspnea Respiratory: Respiratory: Denies dyspnea Gastrointestinal: Gastrointestinal: Reports no additional gastrointestinal complaints Genitourinary: Genitourinary: Denies dysuria Musculoskeletal: Musculoskeletal: Denies neck pain Integumentary/Breasts: Skin/Breast: Denies dry skin Neurologic: Reports Normal hearing present, Denies headache(s) and Denies weakness Psychiatric: Psychiatric: Denies anxiety Endocrine: Endocrine: Denies change in body appearance Hematologic/Lymphatic: Hematologic/Lymphatic: Denies easy bleeding Allergic/Immunologic: Allergic/Immunologic: Denies urticaria PMFSH Past Medical History Medical History (Updated 01/31/24 @ 15:08 by Jossue Hernandez MD) Anxiety and depression CVA (cerebral vascular accident) (2022) Elevated liver enzymes Essential hypertension GERD (gastroesophageal reflux disease) With CT evidence of esophagitis and gastritis noted 10/10/2019 Gout History of substance abuse Hyperlipidemia Nausea and vomiting in adult Psoriasis RUQ pain Thyroid nodule TIA (transient ischemic attack) October 2023 Surgical History Surgical History History of History of endometrial ablation (2010) Family History Family History Sibling Colon cancer Hypertension Other No problems noted. Mother Hypertension Other Acute myocardial infarction Social History Social History Social History: The patient lives alone. She has 1 son but she is estranged from her son. She has 4 cats. She is a recovering alcoholic. She states that she has drink up to a pint of vodka a day. She used to use cocaine but has not done so in 20 years. She denies history of tobacco use. She does have heavy secondhand smoke exposure and her clothes in belongings smell of smoke. Code status: DNR/DNI per patient request. Nursing staff was at bedside and witnessed discussion of code status and plan of care with patient. Surrogate decision maker: Tory Strauss (friend) Smoking status: Never smoker Alcohol intake: current Drinks per week: 2 Alcohol use details: One pint of alcohol a day. Substance use: current Substance use type: marijuana Do You Feel Safe in your Home?: No Lack of Transportation: No Lack of Food: Never True Current Housing: I Do Not Have Housing Concerned About Future Housing: No Difficulty Paying Gas/Electric Bills: YES Difficulty Paying for Meds: YES Currently Unemployed: No Education: High School Diploma/GED Difficulty w/ Childcare or Family Care: No Spiritual care concerns: No Meds Home Medications and Allergies Home Medications Medication Instructions Recorded Confirmed Type atorvastatin 80 mg tablet 80 mg PO DAILY 10/30/23 01/31/24 History clobetasol 0.05 % topical ointment 1 applic topical TID psoriasis 10/30/23 01/31/24 History folic acid 1 mg tablet 1 mg PO DAILY 10/30/23 01/31/24 History losartan 100 mg tablet 100 mg PO DAILY 10/30/23 01/31/24 History aspirin 81 mg tablet 81 mg PO DAILY 10/31/23 01/31/24 History hydrocodone 5 mg-acetaminophen 325 1 tablet PO Q4H PRN Pain Rated 4-6 11/02/23 01/31/24 Rx mg tablet #12 tabs famotidine 20 mg tablet 20 mg PO DAILY 01/31/24 01/31/24 History halobetasol propionate 0.05 % 1 applic topical TID psoriasis 01/31/24 01/31/24 History topical ointment mupirocin 2 % topical ointment 1 applic topical TID psoriasis 01/31/24 01/31/24 History Allergies Allergy/AdvReac Type Severity Reaction Status Date / Time Penicillins Allergy Severe HIVES Verified 01/30/24 22:39 Sulfa (Sulfonamide AdvReac Severe HIVES Verified 01/30/24 22:39 Antibiotics) Vital Signs Vital Signs - 24 hr 01/30/24 22:32 01/31/24 00:12 01/31/24 02:44 Temperature 97.6 F Pulse Rate 73 93 91 Respiratory Rate 27 H 24 H 18 Blood Pressure 178/101 H 138/92 H 129/72 Pulse Oximetry 96 99 99 Oxygen Delivery Room Air 01/31/24 03:00 01/31/24 05:20 01/31/24 08:45 Temperature 98.9 F 97.4 F L Pulse Rate 76 80 Respiratory Rate 16 16 Blood Pressure 162/98 H 158/83 H Pulse Oximetry 99 98 Oxygen Delivery Room Air Exam Const: General: comfortable and no acute distress Orientation/consciousness: patient oriented x3 HENMT: Head: normocephalic and atraumatic Ears: hearing grossly normal bilaterally Eyes: General: appearance normal, both eyes and all related structures Pupils: Equal, round and reactive pupils present Neck: Neck: normal visual inspection and full ROM Resp: Effort & Inspection: no respiratory distress Auscultation: clear to auscultation bilaterally Cardio: Rate: regular rate Rhythm: regular rhythm GI: Inspection: non-distended and no visible herniation GI Palp: Yes Soft to palpation, Yes Tenderness to palpation present (GI) (Focal tenderness in right upper quadrant), No Guarding due to palpation present (GI) and No Rebound tenderness present Percussion: Yes normal to percussion Auscultation: normal bowel sounds Skin: General skin exam: normal color Neuro: General: moves all extremities and no focal motor deficits Speech: normal speech Motor exam (neuro): 5/5 motor strength present throughout Extrem: General: normal to inspection and no edema Psych: Mental Status: mental status grossly normal Attitude: cooperative Insight: Good insight present (Psych) Judgement: Good judgement present ( Psych) Results Labs 01/30/24 22:46 01/30/24 22:46 Labs: Short CBC 01/30/24 Range/Units 22:46 WBC 6.3 (4.5-10.0) K/mm3 Hgb 13.8 D (12.0-15.0) g/dL Hct 40.5 (37.0-47.0) % Plt Count 164 (150-375) k/mm3 BMP 01/30/24 22:46 Sodium 142 Potassium 3.9 Chloride 105 Carbon Dioxide 21 L BUN 18 H Creatinine 0.60 L Glucose 118 H Calcium 10.9 H Liver Function 01/30/24 Range/Units 22:46 Total Bilirubin 2.4 H (0.2-1.3) mg/dL AST 352 H (14-36) U/L ALT 99 H (6-35) U/L Alkaline Phosphatase 279 H (38-126) U/L Albumin 5.0 (3.5-5.1) g/dL Urine 01/30/24 Range/Units 23:44 Urine Color Yellow (Yellow) Urine Appearance Clear (Clear) Urine pH 7.5 (5.0-9.0) Ur Specific [place] 1.020 (1.001-1.035) Urine Protein Negative (Negative) mg/dL Urine Glucose (UA) Negative (Negative) mg/dL
[2024-01-31 14:00] VITALS: BP 151/92; PULSE 68; RESP 20; TEMP 36.1; O2SAT 100
[2024-01-31 21:00] VITALS: BP 153/94; PULSE 85; RESP 16; TEMP 37.1; O2SAT 98
[2024-02-01] VITALS (10 sets, daily range): BP systolic 135–175; BP diastolic 73–106; PULSE 46–62; RESP 12–21; TEMP 35.9–36.8; O2SAT 98–100
[2024-02-01] MEDS: metroNIDAZOLE 500 MG/ISO 100ML 500 MG/100 ML BAG 100 MG IVPB ×3 (03:37→21:38)
[2024-02-01] MEDS: DEXTROSE 5%/LACTATED RINGERS 1,000 ML 65 ML IV CONT ×2 (04:38→15:48)
[2024-02-01 06:46] LABS: Basophils Percent Auto 0.6 % (0.2-1.2); Eosinophils Absolute Auto 0.1 K/mm3 (0-0.3); Eosinophils Percent Auto 2.1 % (0-4.4); Hemoglobin 11.4 g/dL (12.0-15.0); Immature Granulocyte Absolute 0.01 K/mm3 (0.00-0.031); Immature Granulocyte Percent A 0.2 % (0-0.5); Immature Platelet Fraction Pct 8.3 % (0.9-11.2); Lymphocytes Absolute Auto 0.62 K/mm3 (0.9-3.2); Lymphocytes Percent Auto 12.8 % (18.3-44.2); Mean Corpuscular HGB Conc 33.5 g/dl (32-36); Mean Corpuscular Hemoglobin 31.9 pg (26-34); Mean Corpuscular Volume 95.2 fl (80-100); Mean Platelet Volume 11.6 fl (7.4-10.4); Monocytes Absolute Auto 0.6 K/mm3 (0.1-0.6); Monocytes Percent Auto 11.6 % (2.6-8.5); Neutrophils Absolute Auto 3.5 K/mm3 (1.3-6.7); Neutrophils Percent Auto 72.7 % (45.5-73.1); Platelet Count Result 125 k/mm3 (150-375); Red Blood Count 3.57 M/mm3 (4.2-5.4); Red Cell Distribution Width 14.3 % (11.5-14.5); White Blood Count 4.8 K/mm3 (4.5-10.0)
[2024-02-01 06:57] LABS: INR 1.1; Prothrombin Time 14.2 Seconds (11.1-14.7)
[2024-02-01 06:58] LABS: Alanine Aminotransferase 63 U/L (6-35); Albumin Level 3.5 g/dL (3.5-5.1); Alkaline Phosphatase 186 U/L (38-126); Anion Gap 9 mmol/L (4-12); Aspartate Amino Transferase 87 U/L (14-36); Bilirubin,Total 6.4 mg/dL (0.2-1.3); Blood Urea Nitrogen 7 mg/dL (7-17); Calcium 9.3 mg/dL (8.4-10.2); Carbon Dioxide 26 mmol/L (22-30); Chloride 100 mmol/L (98-107); Estimated CRCL calculation 77 ml/min; Estimated Glomerular Filt Rate > 60; Glucose 93 mg/dL (65-110); Partial Thromboplastin Time 31.1 Seconds (22.3-36.8); Potassium 3.2 mmol/L (3.4-5.0); Sodium 135 mmol/L (137-145)
[2024-02-01] MEDS: THIAMINE HCL 200 MG/2 ML VIAL 100 MG IV PUSH (08:55)
--- NOTE | 2024-02-01 09:33 | P.PNIM_ITS ---
Progress Note: A&P Assessment and Plan (1) Acute cholecystitis: Code(s): K81.0 - Acute cholecystitis Status: Acute Assessment and Plan: admit to regular medical floor started on Rocephin and Flagyl GI consult General surgery consult - clear liquid now- npo at midnight-ercp in am 01/31 - surgery on board- recommendations- She will need ERCP after which have recommended laparoscopic cholecystectomy. pt wants to wait after ERCp and decide on surgery after. (2) Choledocholithiasis: Code(s): K80.50 - Calculus of bile duct without cholangitis or cholecystitis without obstruction Status: Acute Assessment and Plan: GI consult General surgery consult - see above (3) Alcohol abuse: Code(s): F10.10 - Alcohol abuse, uncomplicated Status: Acute Assessment and Plan: CIWA as needed alcohol cessation counselling completed (4) GERD (gastroesophageal reflux disease): Qualifiers: Esophagitis bleeding: without hemorrhage Esophagitis presence: with esophagitis Qualified Code(s): K21.00 - Gastro-esophageal reflux disease with esophagitis, without bleeding Code(s): K21.9 - Gastro-esophageal reflux disease without esophagitis Status: Acute Assessment and Plan: PPI (5) UTI (urinary tract infection): Code(s): N39.0 - Urinary tract infection, site not specified Status: Acute Assessment and Plan: on Rocephin - final culture is negative Plan # h/o CVA 1 year ago, TIA 3 months ago Time Spent With Patient Time with patient: Greater than 35 minutes Subjective Date/time seen: 02/01/24 09:33 Interval history: right upper quadrant pain Narrative retreieved from This is a 58-year-old female with past medical history significant for alcohol dependence, hypertension, stroke, GERD, dyslipidemia. patient comes to the emergency room due to right upper quadrant pain had a similar episode 3 months ago. patient denies any fevers, rigors, chills, night sweats. preliminary workup significant for CT of abdomen and pelvis with choledocholithiasis with biliary obstruction suspicion for development of cholecystitis also found to have compression fractures at the level of L1 and L3. patient has been admitted for further evaluation management and treatment. 01/30- pt is seen and examined. Repots some abd pain but a lot better now. Some nausea but no vomiting. GI was consulted and plan for egd in am. Clear liquid now, NPO at midnight. 01/31 seen and examined. ercp today Review of Systems Review of Systems: right upper quadrant pain Exam Const: General: comfortable, no acute distress, well developed, alert, awake and average body habitus Nutritional Appearance: average body habitus Orientation/consciousness: patient oriented x3 Other: looks older than stated age HENMT: Head: normal to inspection, normocephalic and atraumatic Ears: hearing grossly normal bilaterally Face/Nose/Sinus: normal facial exam Face and sinus: normal facial exam Eyes: General: appearance normal, both eyes and all related structures Pupils: Equal, round and reactive pupils present EOM: EOMs intact bilaterally Neck: Neck: full ROM, no lymphadenopathy and no JVD Thyroid: thyroid normal Lymphatic: no lymphadenopathy noted Resp: Effort & Inspection: normal respiratory effort and able to speak in complete sentences Auscultation: clear to auscultation bilaterally Cardio: Jugular venous distension: no JVD Rate: regular rate Rhythm: regular rhythm Heart sounds: S1 normal heart sound present and S2 normal heart sound present : General: Yes deferred Skin: Rashes: no rashes Wounds: no wounds Neuro: General: patient oriented x3 and CN's II-XI intact bilaterally Cranial nerves: Yes CN's II-XII intact bilaterally and Yes Equal, round and reactive pupils present Cognition (Neuro): normal cognition Speech: normal speech Gait exam (Neuro): Normal gait present Motor exam (neuro): 5/5 motor strength present throughout Extrem: General: normal to inspection, full ROM, no joint enlargement and no pedal edema Objective Data Vital Signs Vital Signs: Vital Signs - 24 hr 01/31/24 14:00 01/31/24 21:00 02/01/24 05:13 Temperature 97.0 F L 98.7 F 98.3 F Pulse Rate 68 85 58 L Respiratory Rate 20 16 14 Blood Pressure 151/92 H 153/94 H 135/84 Pulse Oximetry 100 98 98 Oxygen Delivery 02/01/24 08:55 Temperature Pulse Rate Respiratory Rate Blood Pressure Pulse Oximetry Oxygen Delivery Room Air Intake/Output Intake/Output: Intake & Output 01/29/24 01/30/24 01/31/24 02/01/24 23:59 23:59 23:59 23:59 Intake Total 2800 0 Balance 2800 0 Meds/Results Medications: Active Medications Generic Name Dose Route Start Last Admin Trade Name Freq PRN Reason Stop Dose Admin Dextrose 12.5 gm 01/31/24 01:50 Dextrose 50% 25 Gm/50 Ml Syringe IV PUSH PRN PRN Hypoglycemia Protocol Glucagon 1 mg 01/31/24 01:50 Glucagon For Inj 1 Mg Vial IM PRN PRN Hypoglycemia Protocol Glucose 15 gm 01/31/24 01:50 Glucose Oral Gel 15 Gm Of Glucse In 37.5 Gm Tube PO PRN PRN Hypoglycemia Protocol Hydromorphone HCl 1 mg 01/31/24 03:26 01/31/24 19:58 Hydromorphone Hcl Inj (*Crx) 1 Mg/Ml Syr IV PUSH 1 mg Q3H PRN Administration Pain Rated 7-10 Ceftriaxone Sodium 1 gm in 50 mls @ 100 mls/hr 02/01/24 03:00 02/01/24 02:56 Rocephin 1 Gm/Ns 50 Ml IVPB 100 mls/hr Q24H JENY Administration Metronidazole 500 mg in 100 mls @ 100 mls/hr 01/31/24 12:00 02/01/24 03:37 Flagyl 500 Mg/Iso Soln 100 Ml IVPB 100 mls/hr Q8H JENY Administration Dextrose 1,000 mls @ 100 mls/hr 01/31/24 01:50 Dextrose 5% 1,000 Ml IVPB PRN PRN Hypoglycemia Protocol Dextrose/Lactated Ringer's 1,000 mls @ 65 mls/hr 01/31/24 03:30 02/01/24 04:38 Dextrose 5%/Lactated Ringers IV CONT 65 mls/hr .[id number] JENY Administration Morphine Sulfate 4 mg 01/31/24 01:37 Morphine Sulfate (*Crx) 4 Mg/Ml Inj IV PUSH Q2H PRN Pain Rated 7-10 Ondansetron HCl 4 mg 01/31/24 01:37 Ondansetron Inj 4 Mg/2 Ml Vial IV PUSH Q4H PRN Nausea Thiamine HCl 100 mg 02/01/24 09:00 02/01/24 08:55 Thiamine Hcl 200 Mg/2 Ml Vial IV PUSH 100 mg QAM JENY Administration Radiology Results: ITS Impressions Abdomen/Pelvis CT 01/30/24 23:48 IMPRESSION: 1. Likely choledocholithiasis with secondary biliary obstruction and suspicion for developing acute cholecystitis. Correlate with liver function tests and for Devine sign. Could consider further evaluation with MRCP, right upper quadrant ultrasound or HIDA scan depending upon clinical suspicion and specific question to be addressed. 2. Acute to subacute L1 and L3 compression fractures which are new since 3 months prior. MRCP 01/31/24 09:59 IMPRESSION: 1. Choledocholithiasis with intrahepatic and extrahepatic biliary duct dilatation and gallbladder distention. Labs Labs: Laboratory Results - last 24 hr 02/01/24 06:07 WBC 4.8 RBC 3.57 L Hgb 11.4 L Hct 34.0 L MCV 95.2 MCH 31.9 MCHC 33.5 RDW 14.3 Plt Count 125 L MPV 11.6 H Immature Gran % (Auto) 0.2 Neut % (Auto) 72.7 Lymph % (Auto) 12.8 L [place] % (Auto) 11.6 H Eos % (Auto) 2.1 Baso % (Auto) 0.6 Lymph # (Auto) 0.62 L [place] # (Auto) 0.6 Eos # (Auto) 0.1 Baso # (Auto) 0.0 Abs Immat Gran (auto) 0.01 Absolute Neuts (auto) 3.5 Absolute Nucleated RBC 0.000 Nucleated RBC % 0.0 % Immature Plt Fraction 8.3 PT 14.2 INR 1.1 APTT 31.1 Sodium 135 L Potassium 3.2 L Chloride 100 Carbon Dioxide 26 Anion Gap 9 BUN 7 D Creatinine 0.60 L Estim Creat Clear Calc 77 Estimated GFR > 60 Glucose 93 Calcium 9.3 Total Bilirubin 6.4 H AST 87 H ALT 63 H Alkaline Phosphatase 186 H Total Protein 7.0 Albumin 3.5 Blood Type O Positive Antibody Screen Negative Quality VTE Prophylaxis VTE prophylaxis: mechanical ordered
[2024-02-01] MEDS: HYDROmorphone HCL INJ (*CRX) 1 MG/ML SYR IV PUSH ×3 (09:53→20:05)
--- NOTE | 2024-02-01 10:19 | P.PNGS_ITS ---
Progress Note: A&P Assessment and Plan (1) Choledocholithiasis: Code(s): K80.50 - Calculus of bile duct without cholangitis or cholecystitis without obstruction Status: Acute Assessment and Plan: * MRCP showed choledocholithiasis. GI planning ERCP today. Will repeat labs and see how the patient does with the ERCP. * Discussed again with the patient that we would recommend a laparoscopic cholecystectomy during this hospitalization and she agrees to have the surgery. Description of the procedure, risks, benefits, alternatives, and expected recovery were discussed with the patient in detail. We discussed the risks of bile leak and bile duct injury, liver/bowel injury, bleeding, and infection. Also discussed the possibility of having to convert to an open procedure if necessary. She understands and all questions were answered. (2) Elevated liver enzymes: Code(s): R74.8 - Abnormal levels of other serum enzymes Status: Acute Assessment and Plan: * MRCP showed choledocholithiasis. Total bilirubin up to 6 today. GI planning ERCP today. (3) Alcohol abuse: Code(s): F10.10 - Alcohol abuse, uncomplicated Status: Acute (4) CVA (cerebral vascular accident): Onset Date: 2022 Code(s): I63.9 - Cerebral infarction, unspecified Status: Acute Assessment and Plan: * History of CVA over a year ago and TIA 3 months ago. Plan I have discussed the patient's case and plan of care with Dr. Pino. Subjective Subjective Date/Time Seen: 02/01/24 10:19 Patient reports: still having pain and afebrile Interval history: Patient reports feeling anxious today about the ERCP. She reports her right upper quadrant abdominal pain seemed to get worse this morning. No nausea or vomiting. Plan for ERCP today. Bilirubin up to 6. Exam Const: General: comfortable and no acute distress GI: Inspection: non-distended GI Palp: Yes Soft to palpation, Yes Tenderness to palpation present (GI) (Epigastric area and right upper quadrant), No Guarding due to palpation present (GI) and No Rebound tenderness present Auscultation: normal bowel sounds Objective Data Vital Signs Vital Signs: Vital Signs - 24 hr 01/31/24 14:00 01/31/24 21:00 02/01/24 05:13 Temperature 97.0 F L 98.7 F 98.3 F Pulse Rate 68 85 58 L Respiratory Rate 20 16 14 Blood Pressure 151/92 H 153/94 H 135/84 Pulse Oximetry 100 98 98 Oxygen Delivery 02/01/24 08:55 Temperature Pulse Rate Respiratory Rate Blood Pressure Pulse Oximetry Oxygen Delivery Room Air Intake/Output Intake/Output: Intake & Output 01/29/24 01/30/24 01/31/24 02/01/24 23:59 23:59 23:59 23:59 Intake Total 2800 0 Balance 2800 0 Meds/Results Medications: Active Medications Generic Name Dose Route Start Last Admin Trade Name Freq PRN Reason Stop Dose Admin Dextrose 12.5 gm 01/31/24 01:50 Dextrose 50% 25 Gm/50 Ml Syringe IV PUSH PRN PRN Hypoglycemia Protocol Glucagon 1 mg 01/31/24 01:50 Glucagon For Inj 1 Mg Vial IM PRN PRN Hypoglycemia Protocol Glucose 15 gm 01/31/24 01:50 Glucose Oral Gel 15 Gm Of Glucse In 37.5 Gm Tube PO PRN PRN Hypoglycemia Protocol Hydromorphone HCl 1 mg 01/31/24 03:26 02/01/24 09:53 Hydromorphone Hcl Inj (*Crx) 1 Mg/Ml Syr IV PUSH 1 mg Q3H PRN Administration Pain Rated 7-10 Ceftriaxone Sodium 1 gm in 50 mls @ 100 mls/hr 02/01/24 03:00 02/01/24 02:56 Rocephin 1 Gm/Ns 50 Ml IVPB 100 mls/hr Q24H JENY Administration Metronidazole 500 mg in 100 mls @ 100 mls/hr 01/31/24 12:00 02/01/24 03:37 Flagyl 500 Mg/Iso Soln 100 Ml IVPB 100 mls/hr Q8H JENY Administration Dextrose 1,000 mls @ 100 mls/hr 01/31/24 01:50 Dextrose 5% 1,000 Ml IVPB PRN PRN Hypoglycemia Protocol Dextrose/Lactated Ringer's 1,000 mls @ 65 mls/hr 01/31/24 03:30 02/01/24 04:38 Dextrose 5%/Lactated Ringers IV CONT 65 mls/hr .[id number] JENY Administration Morphine Sulfate 4 mg 01/31/24 01:37 Morphine Sulfate (*Crx) 4 Mg/Ml Inj IV PUSH Q2H PRN Pain Rated 7-10 Ondansetron HCl 4 mg 10/23/24 01:37 Ondansetron Inj 4 Mg/2 Ml Vial IV PUSH Q4H PRN Nausea Thiamine HCl 100 mg 02/01/24 09:00 02/01/24 08:55 Thiamine Hcl 200 Mg/2 Ml Vial IV PUSH 100 mg QAM JENY Administration Radiology Results: ITS Impressions Abdomen/Pelvis CT 01/30/24 23:48 IMPRESSION: 1. Likely choledocholithiasis with secondary biliary obstruction and suspicion for developing acute cholecystitis. Correlate with liver function tests and for Devine sign. Could consider further evaluation with MRCP, right upper quadrant ultrasound or HIDA scan depending upon clinical suspicion and specific question to be addressed. 2. Acute to subacute L1 and L3 compression fractures which are new since 3 months prior. MRCP 01/31/24 09:59 IMPRESSION: 1. Choledocholithiasis with intrahepatic and extrahepatic biliary duct dilatation and gallbladder distention. Labs Labs: Laboratory Results - last 24 hr 02/01/24 06:07 WBC 4.8 RBC 3.57 L Hgb 11.4 L Hct 34.0 L MCV 95.2 MCH 31.9 MCHC 33.5 RDW 14.3 Plt Count 125 L MPV 11.6 H Immature Gran % (Auto) 0.2 Neut % (Auto) 72.7 Lymph % (Auto) 12.8 L [place] % (Auto) 11.6 H Eos % (Auto) 2.1 Baso % (Auto) 0.6 Lymph # (Auto) 0.62 L [place] # (Auto) 0.6 Eos # (Auto) 0.1 Baso # (Auto) 0.0 Abs Immat Gran (auto) 0.01 Absolute Neuts (auto) 3.5 Absolute Nucleated RBC 0.000 Nucleated RBC % 0.0 % Immature Plt Fraction 8.3 PT 14.2 INR 1.1 APTT 31.1 Sodium 135 L Potassium 3.2 L Chloride 100 Carbon Dioxide 26 Anion Gap 9 BUN 7 D Creatinine 0.60 L Estim Creat Clear Calc 77 Estimated GFR > 60 Glucose 93 Calcium 9.3 Total Bilirubin 6.4 H AST 87 H ALT 63 H Alkaline Phosphatase 186 H Total Protein 7.0 Albumin 3.5 Blood Type O Positive Antibody Screen Negative
--- NOTE | 2024-02-01 11:24 | PC.NURSE ---
Patient off floor to GI lab via wheelchair. Report given to Pedro IRWIN.
[2024-02-01] MEDS: LACTATED RINGERS 1,000 ML 150 ML IV CONT (11:48)
[2024-02-01] MEDS: INDOMETHACIN 50 MG SUPP.RECT RECTAL (12:18)
--- NOTE | 2024-02-01 12:21 | WPDANESEPPF ---
Anes - Initial Pre Proc Eval Procedure: Operation Date: 02/01/24 12:00 Proposed Procedures p Endoscopic Retro Cholangiopancreatogram - Darrell Díaz MD Date/Time: 02/01/24 12:21 Surgeon: Danii Wren MD Pre Op Diagnosis: Abd pain, RLQ Patient Data Age: 58 Gender: F Height: 1.68 m Weight: 57.2 kg Last Vital Signs Temp 36.2 C L 02/01/24 11:46 Pulse 55 L 02/01/24 11:46 Resp 18 02/01/24 11:46 BP 142/73 H 02/01/24 11:46 Pulse Ox 100 02/01/24 11:46 O2 Del Method Room Air 02/01/24 11:46 Allergies Allergy/AdvReac Type Severity Reaction Status Date / Time Penicillins Allergy Severe HIVES Verified 02/01/24 11:43 Sulfa (Sulfonamide AdvReac Severe HIVES Verified 02/01/24 11:43 Antibiotics) Home Medications Medication Instructions Recorded Confirmed Type atorvastatin 80 mg tablet 80 mg PO DAILY 10/30/23 01/31/24 History clobetasol 0.05 % topical ointment 1 applic topical TID psoriasis 10/30/23 01/31/24 History folic acid 1 mg tablet 1 mg PO DAILY 10/30/23 01/31/24 History losartan 100 mg tablet 100 mg PO DAILY 10/30/23 01/31/24 History aspirin 81 mg tablet 81 mg PO DAILY 10/31/23 01/31/24 History hydrocodone 5 mg-acetaminophen 325 1 tablet PO Q4H PRN Pain Rated 4-6 11/02/23 01/31/24 Rx mg tablet #12 tabs famotidine 20 mg tablet 20 mg PO DAILY 01/31/24 01/31/24 History halobetasol propionate 0.05 % 1 applic topical TID psoriasis 01/31/24 01/31/24 History topical ointment mupirocin 2 % topical ointment 1 applic topical TID psoriasis 01/31/24 01/31/24 History Laboratory Tests 02/01/24 06:07 WBC 4.8 K/mm3 (4.5-10.0) RBC 3.57 L M/mm3 (4.2-5.4) Hgb 11.4 L g/dL (12.0-15.0) Hct 34.0 L % (37.0-47.0) MCV 95.2 fl (80-100) MCH 31.9 pg (26-34) MCHC 33.5 g/dl (32-36) RDW 14.3 % (11.5-14.5) Plt Count 125 L k/mm3 (150-375) MPV 11.6 H fl (7.4-10.4) Immature Gran % (Auto) 0.2 % (0-0.5) Neut % (Auto) 72.7 % (45.5-73.1) Lymph % (Auto) 12.8 L % (18.3-44.2) [place] % (Auto) 11.6 H % (2.6-8.5) Eos % (Auto) 2.1 % (0-4.4) Baso % (Auto) 0.6 % (0.2-1.2) Lymph # (Auto) 0.62 L K/mm3 (0.9-3.2) [place] # (Auto) 0.6 K/mm3 (0.1-0.6) Eos # (Auto) 0.1 K/mm3 (0-0.3) Baso # (Auto) 0.0 K/mm3 (0.0-0.1) Abs Immat Gran (auto) 0.01 K/mm3 (0.00-0.031) Absolute Neuts (auto) 3.5 K/mm3 (1.3-6.7) Absolute Nucleated RBC 0.000 K/mm3 (0.0-0.012) Nucleated RBC % 0.0 % (0.0-0.2) % Immature Plt Fraction 8.3 % (0.9-11.2) PT 14.2 Seconds (11.1-14.7) INR 1.1 APTT 31.1 Seconds (22.3-36.8) Sodium 135 L mmol/L (137-145) Potassium 3.2 L mmol/L (3.4-5.0) Chloride 100 mmol/L (98-107) Carbon Dioxide 26 mmol/L (22-30) Anion Gap 9 mmol/L (4-12) BUN 7 D mg/dL (7-17) Creatinine 0.60 L mg/dL (0.7-1.0) Estim Creat Clear Calc 77 ml/min Estimated GFR > 60 (59 - ) Glucose 93 mg/dL (65-110) Calcium 9.3 mg/dL (8.4-10.2) Total Bilirubin 6.4 H mg/dL (0.2-1.3) AST 87 H U/L (14-36) ALT 63 H U/L (6-35) Alkaline Phosphatase 186 H U/L (38-126) Total Protein 7.0 g/dL (6.3-8.2) Albumin 3.5 g/dL (3.5-5.1) Blood Type O Positive Antibody Screen Negative Patient hx anesthesia problems: none Family hx anesthesia problems: none Results Review: All pre-operative results and documents have been reviewed as part of the pre-operative evaluation. [facility] Past Medical History Medical History Anxiety and depression CVA (cerebral vascular accident) (2022) Elevated liver enzymes Essential hypertension GERD (gastroesophageal reflux disease) With CT evidence of esophagitis and gastritis noted 10/10/2019 Gout History of substance abuse Hyperlipidemia Nausea and vomiting in adult Psoriasis RUQ pain Thyroid nodule TIA (transient ischemic attack) October 2023 Surgical History Surgical History History of History of endometrial ablation (2010) Family History Family History Sibling Colon cancer Hypertension Other No problems noted. Mother Hypertension Other Acute myocardial infarction Social History Social History Social History: The patient lives alone. She has 1 son but she is estranged from her son. She has 4 cats. She is a recovering alcoholic. She states that she has drink up to a pint of vodka a day. She used to use cocaine but has not done so in 20 years. She denies history of tobacco use. She does have heavy secondhand smoke exposure and her clothes in belongings smell of smoke. Code status: DNR/DNI per patient request. Nursing staff was at bedside and witnessed discussion of code status and plan of care with patient. Surrogate decision maker: Tory Strauss (friend) Smoking status: Never smoker Alcohol intake: current Drinks per week: 2 Alcohol use details: One pint of alcohol a day. Substance use: current Substance use type: marijuana Do You Feel Safe in your Home?: No Lack of Transportation: No Lack of Food: Never True Current Housing: I Do Not Have Housing Concerned About Future Housing: No Difficulty Paying Gas/Electric Bills: YES Difficulty Paying for Meds: YES Currently Unemployed: No Education: High School Diploma/GED Difficulty w/ Childcare or Family Care: No Spiritual care concerns: No Anes - Eval Final PreProcedure Day of Procedure 02/01/24 12:21 Patient weight: thin Heart: regular rate and rhythm Lungs: clear to auscultation Airway: Mallampati scale class II Neurological: alert and oriented Last oral intake: >/= 8 hours ASA classification: IV Emergent: no Anesthetic plan: proceed Anesthesia type and monitoring: general ETT and standard monitoring Results Review: All pre-operative results and documents have been reviewed as part of the pre-operative evaluation. Informed Consent: The patient's anesthetic plan and its attendant risks and benefits were discussed with the patient/family/POA. Questions were solicited and answers provided to the satisfaction of the patient/family/POA.
[2024-02-01] MEDS: HYDROmorphone HCL INJ (*CRX) 1 MG/ML SYR 0.5 MG IV PUSH (14:56)
--- NOTE | 2024-02-01 17:55 | P.PNGI_ITS ---
Progress Note: A&P Assessment and Plan (1) Elevated liver enzymes: Code(s): R74.8 - Abnormal levels of other serum enzymes Status: Acute (2) Choledocholithiasis: Code(s): K80.50 - Calculus of bile duct without cholangitis or cholecystitis without obstruction Status: Acute (3) Epigastric pain: Code(s): R10.13 - Epigastric pain Status: Acute (4) Status post endoscopic retrograde cholangiopancreatography: Code(s): Z98.890 - Other specified postprocedural states Status: Acute Assessment and Plan: The patient's worsening pain might represent post ERCP pancreatitis. We'll increase LR fluid rate to the recommended 3 ml/kg/hr for the next 8 hours (180 ml per hour), then keep maintenance of 150 ml/hour for the rest of the day. Keep analgesics. Will check CMP in the morning and add amylase, lipase and CRP. Subjective Date/time seen: 02/01/24 17:55 Interval history: The patient is complaining of intermittent, although almost constant epigastric pain, 9/10 which can be 6/10 by moments. No nausea or vomiting. Exam Const: General: in distress GI: GI Palp: Yes Tenderness to palpation present (GI) and Yes Guarding due to palpation present (GI) Objective Data Vital Signs Vital Signs: Vital Signs - 24 hr 01/31/24 21:00 02/01/24 05:13 02/01/24 08:55 Temperature 98.7 F 98.3 F Pulse Rate 85 58 L Respiratory Rate 16 14 Blood Pressure 153/94 H 135/84 Pulse Oximetry 98 98 Oxygen Delivery Room Air 02/01/24 11:46 02/01/24 14:05 02/01/24 14:15 Temperature 97.2 F L 96.6 F L Pulse Rate 55 L 46 L 57 L Respiratory Rate 18 12 18 Blood Pressure 142/73 H 158/82 H 160/101 H Pulse Oximetry 100 100 99 Oxygen Delivery Room Air Room Air Room Air 02/01/24 14:25 02/01/24 14:35 02/01/24 14:45 Temperature Pulse Rate 60 60 54 L Respiratory Rate 17 17 17 Blood Pressure 175/96 H 170/106 H 172/88 H Pulse Oximetry 100 100 100 Oxygen Delivery Room Air Room Air Room Air 02/01/24 14:55 02/01/24 15:05 Temperature Pulse Rate 54 L 50 L Respiratory Rate 21 H 17 Blood Pressure 172/87 H 148/83 H Pulse Oximetry 100 100 Oxygen Delivery Room Air Room Air Intake/Output Intake/Output: Intake & Output 01/29/24 01/30/24 01/31/24 02/01/24 23:59 23:59 23:59 23:59 Intake Total 2800 875.8 Balance 2800 875.8 Meds/Results Medications: Active Medications Generic Name Dose Route Start Last Admin Trade Name Freq PRN Reason Stop Dose Admin Dextrose 12.5 gm 01/31/24 01:50 Dextrose 50% 25 Gm/50 Ml Syringe IV PUSH PRN PRN Hypoglycemia Protocol Glucagon 1 mg 01/31/24 01:50 Glucagon For Inj 1 Mg Vial IM PRN PRN Hypoglycemia Protocol Glucose 15 gm 01/31/24 01:50 Glucose Oral Gel 15 Gm Of Glucse In 37.5 Gm Tube PO PRN PRN Hypoglycemia Protocol Hydromorphone HCl 1 mg 01/31/24 03:26 02/01/24 16:06 Hydromorphone Hcl Inj (*Crx) 1 Mg/Ml Syr IV PUSH 1 mg Q3H PRN Administration Pain Rated 7-10 Ceftriaxone Sodium 1 gm in 50 mls @ 100 mls/hr 02/01/24 03:00 02/01/24 02:56 Rocephin 1 Gm/Ns 50 Ml IVPB 100 mls/hr Q24H JENY Administration Dextrose 1,000 mls @ 100 mls/hr 01/31/24 01:50 Dextrose 5% 1,000 Ml IVPB PRN PRN Hypoglycemia Protocol Dextrose/Lactated Ringer's 1,000 mls @ 65 mls/hr 01/31/24 03:30 02/01/24 15:48 Dextrose 5%/Lactated Ringers IV CONT 65 mls/hr .[id number] JENY Administration Metronidazole 500 mg in 100 mls @ 100 mls/hr 02/01/24 15:35 02/01/24 15:50 Flagyl 500 Mg/Iso Soln 100 Ml IVPB 100 mls/hr Q8HR JENY Administration Morphine Sulfate 4 mg 01/31/24 01:37 Morphine Sulfate (*Crx) 4 Mg/Ml Inj IV PUSH Q2H PRN Pain Rated 7-10 Ondansetron HCl 4 mg 01/31/24 01:37 Ondansetron Inj 4 Mg/2 Ml Vial IV PUSH Q4H PRN Nausea Thiamine HCl 100 mg 02/01/24 09:00 02/01/24 08:55 Thiamine Hcl 200 Mg/2 Ml Vial IV PUSH 100 mg QAM JENY Administration Radiology Results: ITS Impressions Abdomen/Pelvis CT 01/30/24 23:48 IMPRESSION: 1. Likely choledocholithiasis with secondary biliary obstruction and suspicion for developing acute cholecystitis. Correlate with liver function tests and for Devine sign. Could consider further evaluation with MRCP, right upper quadrant ultrasound or HIDA scan depending upon clinical suspicion and specific question to be addressed. 2. Acute to subacute L1 and L3 compression fractures which are new since 3 mon ths prior. MRCP 01/31/24 09:59 IMPRESSION: 1. Choledocholithiasis with intrahepatic and extrahepatic biliary duct dilatation and gallbladder distention. Labs Labs: Laboratory Results - last 24 hr 02/01/24 06:07 WBC 4.8 RBC 3.57 L Hgb 11.4 L Hct 34.0 L MCV 95.2 MCH 31.9 MCHC 33.5 RDW 14.3 Plt Count 125 L MPV 11.6 H Immature Gran % (Auto) 0.2 Neut % (Auto) 72.7 Lymph % (Auto) 12.8 L [place] % (Auto) 11.6 H Eos % (Auto) 2.1 Baso % (Auto) 0.6 Lymph # (Auto) 0.62 L [place] # (Auto) 0.6 Eos # (Auto) 0.1 Baso # (Auto) 0.0 Abs Immat Gran (auto) 0.01 Absolute Neuts (auto) 3.5 Absolute Nucleated RBC 0.000 Nucleated RBC % 0.0 % Immature Plt Fraction 8.3 PT 14.2 INR 1.1 APTT 31.1 Sodium 135 L Potassium 3.2 L Chloride 100 Carbon Dioxide 26 Anion Gap 9 BUN 7 D Creatinine 0.60 L Estim Creat Clear Calc 77 Estimated GFR > 60 Glucose 93 Calcium 9.3 Total Bilirubin 6.4 H AST 87 H ALT 63 H Alkaline Phosphatase 186 H Total Protein 7.0 Albumin 3.5 Blood Type O Positive Antibody Screen Negative
[2024-02-01] MEDS: DEXTROSE 5%/LACTATED RINGERS 500 ML 180 ML IV CONT ×2 (18:40→21:38)
[2024-02-02] MEDS: HYDROmorphone HCL INJ (*CRX) 1 MG/ML SYR IV PUSH ×6 (02:22→20:50)
[2024-02-02 05:22] VITALS: BP 156/84; PULSE 50; RESP 16; TEMP 36.3; O2SAT 98
[2024-02-02] MEDS: metroNIDAZOLE 500 MG/ISO 100ML 500 MG/100 ML BAG 100 MG IVPB ×3 (05:33→20:49)
[2024-02-02] MEDS: DEXTROSE 5%/LACTATED RINGERS 1,000 ML 150 ML IV CONT (05:33)
[2024-02-02 07:25] LABS: Basophils Percent Auto 0.5 % (0.2-1.2); Eosinophils Percent Auto 0.3 % (0-4.4); Hematocrit 38.7 % (37.0-47.0); Hemoglobin 12.2 g/dL (12.0-15.0); Immature Granulocyte Absolute 0.02 K/mm3 (0.00-0.031); Immature Granulocyte Percent A 0.3 % (0-0.5); Immature Platelet Fraction Pct 9.6 % (0.9-11.2); Lymphocytes Absolute Auto 0.92 K/mm3 (0.9-3.2); Lymphocytes Percent Auto 13.9 % (18.3-44.2); Mean Corpuscular HGB Conc 31.5 g/dl (32-36); Mean Corpuscular Hemoglobin 31.2 pg (26-34); Mean Platelet Volume 11.8 fl (7.4-10.4); Monocytes Absolute Auto 0.4 K/mm3 (0.1-0.6); Neutrophils Absolute Auto 5.2 K/mm3 (1.3-6.7); Platelet Count Result 138 k/mm3 (150-375); Red Blood Count 3.91 M/mm3 (4.2-5.4); Red Cell Distribution Width 13.9 % (11.5-14.5); White Blood Count 6.6 K/mm3 (4.5-10.0)
[2024-02-02 07:38] LABS: Alanine Aminotransferase 44 U/L (6-35); Albumin Level 3.9 g/dL (3.5-5.1); Alkaline Phosphatase 185 U/L (38-126); Amylase 211 U/L (30-110); Anion Gap 11 mmol/L (4-12); Aspartate Amino Transferase 58 U/L (14-36); Bilirubin,Total 6.6 mg/dL (0.2-1.3); Blood Urea Nitrogen 9 mg/dL (7-17); Calcium 9.1 mg/dL (8.4-10.2); Carbon Dioxide 24 mmol/L (22-30); Chloride 100 mmol/L (98-107); Estimated CRCL calculation 93 ml/min; Estimated Glomerular Filt Rate > 60; Glucose 111 mg/dL (65-110); Lipase 1428 U/L (23-300); Potassium 3.3 mmol/L (3.4-5.0); Sodium 135 mmol/L (137-145)
--- NOTE | 2024-02-02 07:43 | WPDANESPN ---
Anes - Prog Note Post-Op Date/Time: 02/02/24 07:43 Cardiovascular status: normal Respiratory status: normal Airway patency: baseline Mental status: baseline Post-Op hydration status: normal Vital Signs: Last Vital Signs Temp 36.3 C L 02/02/24 05:22 Pulse 50 L 02/02/24 05:22 Resp 16 02/02/24 05:22 BP 156/84 H 02/02/24 05:22 Pulse Ox 98 02/02/24 05:22 O2 Del Method Room Air 02/01/24 20:00 Pain Score (VAS): 05/20 I/O: Intake & Output 02/01/24 02/01/24 02/02/24 15:59 23:59 07:59 Intake Total 875.8 1750 1150 Output Total 300 400 Balance 875.8 1450 750 Laboratory Tests 02/02/24 07:12 02/02/24 07:12 02/02/24 07:12 WBC 6.6 RBC 3.91 L Hgb 12.2 Hct 38.7 MCV 99.0 MCH 31.2 MCHC 31.5 L RDW 13.9 Plt Count 138 L MPV 11.8 H Immature Gran % (Auto) 0.3 Neut % (Auto) 79.0 H Lymph % (Auto) 13.9 L [place] % (Auto) 6.0 Eos % (Auto) 0.3 Baso % (Auto) 0.5 Lymph # (Auto) 0.92 [place] # (Auto) 0.4 Eos # (Auto) 0.0 Baso # (Auto) 0.0 Abs Immat Gran (auto) 0.02 Absolute Neuts (auto) 5.2 Absolute Nucleated RBC 0.000 Nucleated RBC % 0.0 % Immature Plt Fraction 9.6 Sodium 135 L Potassium 3.3 L Chloride 100 Carbon Dioxide 24 Anion Gap 11 BUN 9 Creatinine 0.50 L Estim Creat Clear Calc 93 Estimated GFR > 60 Glucose 111 H Calcium 9.1 Total Bilirubin 6.6 H AST 58 H ALT 44 H Alkaline Phosphatase 185 H Total Protein 8.0 Albumin 3.9 Amylase 211 H Lipase 1428 H Microbiology 01/30/24 23:44 Urine Clean Catch Urine Culture - Final Post-procedural complaints: none Patient Feedback: Patient satisfied with anesthetic care.
[2024-02-02] MEDS: IBUPROFEN IV 800 MG/200 ML 800 MG/200 ML BAG 400 MG IVPB (08:25)
[2024-02-02] MEDS: THIAMINE HCL 200 MG/2 ML VIAL 100 MG IV PUSH (08:26)
--- NOTE | 2024-02-02 08:47 | P.PNGS_ITS ---
Progress Note: A&P Assessment and Plan (1) Epigastric pain: Code(s): R10.13 - Epigastric pain Status: Acute Assessment and Plan: * Patient now having signs of pancreatitis. Liver enzymes are still high. Will have to delay surgery until pancreatitis has improved. Remain NPO, IV fluids, pain control. (2) Choledocholithiasis: Code(s): K80.50 - Calculus of bile duct without cholangitis or cholecystitis without obstruction Status: Acute (3) Elevated liver enzymes: Code(s): R74.8 - Abnormal levels of other serum enzymes Status: Acute (4) Pancreatitis, acute: Qualifiers: Pancreatitis type: unspecified pancreatitis type Acute pancreatitis complication: uninfected necrosis Qualified Code(s): K85.91 - Acute pancreatitis with uninfected necrosis, unspecified Code(s): K85.90 - Acute pancreatitis without necrosis or infection, unspecified Status: Acute Subjective Subjective Date/Time Seen: 02/02/24 08:47 Interval history: Patient having significant upper abdominal pain today. Says she is having difficulty breathing secondary to the pain. Exam GI: Inspection: non-distended GI Palp: Yes Soft to palpation, Yes Tenderness to palpation present (GI) (epigastric ) and Yes Guarding due to palpation present (GI) (epigastric) Objective Data Vital Signs Vital Signs: Vital Signs - 24 hr 02/01/24 08:55 02/01/24 11:46 02/01/24 14:05 Temperature 97.2 F L 96.6 F L Pulse Rate 55 L 46 L Respiratory Rate 18 12 Blood Pressure 142/73 H 158/82 H Pulse Oximetry 100 100 Oxygen Delivery Room Air Room Air Room Air 02/01/24 14:15 02/01/24 14:25 02/01/24 14:35 Temperature Pulse Rate 57 L 60 60 Respiratory Rate 18 17 17 Blood Pressure 160/101 H 175/96 H 170/106 H Pulse Oximetry 99 100 100 Oxygen Delivery Room Air Room Air Room Air 02/01/24 14:45 02/01/24 14:55 02/01/24 15:05 Temperature Pulse Rate 54 L 54 L 50 L Respiratory Rate 17 21 H 17 Blood Pressure 172/88 H 172/87 H 148/83 H Pulse Oximetry 100 100 100 Oxygen Delivery Room Air Room Air Room Air 02/01/24 20:00 02/01/24 21:29 02/02/24 05:22 Temperature 97.3 F L 97.3 F L Pulse Rate 62 50 L Respiratory Rate 20 16 Blood Pressure 148/86 H 156/84 H Pulse Oximetry 98 98 Oxygen Delivery Room Air Intake/Output Intake/Output: Intake & Output 01/30/24 01/31/24 02/01/24 02/02/24 23:59 23:59 23:59 23:59 Intake Total 2800 2675.8 1150 Output Total 300 400 Balance 2800 2375.8 750 Meds/Results Medications: Active Medications Generic Name Dose Route Start Last Admin Trade Name Freq PRN Reason Stop Dose Admin Dextrose 12.5 gm 01/31/24 01:50 Dextrose 50% 25 Gm/50 Ml Syringe IV PUSH PRN PRN Hypoglycemia Protocol Glucagon 1 mg 01/31/24 01:50 Glucagon For Inj 1 Mg Vial IM PRN PRN Hypoglycemia Protocol Glucose 15 gm 01/31/24 01:50 Glucose Oral Gel 15 Gm Of Glucse In 37.5 Gm Tube PO PRN PRN Hypoglycemia Protocol Hydromorphone HCl 1 mg 02/02/24 08:07 Hydromorphone Hcl Inj (*Crx) 1 Mg/Ml Syr IV PUSH Q2H PRN Pain Rated 7-10 Hydromorphone HCl 0.5 mg 02/02/24 08:06 Hydromorphone Hcl Inj (*Crx) 1 Mg/Ml Syr IV PUSH Q2H PRN Pain Rated 4-6 Ceftriaxone Sodium 1 gm in 50 mls @ 100 mls/hr 02/01/24 03:00 02/02/24 02:50 Rocephin 1 Gm/Ns 50 Ml IVPB Infused Q24H JENY Infusion Dextrose 1,000 mls @ 100 mls/hr 01/31/24 01:50 Dextrose 5% 1,000 Ml IVPB PRN PRN Hypoglycemia Protocol Metronidazole 500 mg in 100 mls @ 100 mls/hr 02/01/24 15:35 02/02/24 06:30 Flagyl 500 Mg/Iso Soln 100 Ml IVPB Infused Q8HR JENY Infusion Dextrose/Lactated Ringer's 1,000 mls @ 150 mls/hr 02/02/24 02:00 02/02/24 05:33 Dextrose 5%/Lactated Ringers IV CONT 150 mls/hr .Q6H40M JENY Administration Ondansetron HCl 4 mg 01/31/24 01:37 Ondansetron Inj 4 Mg/2 Ml Vial IV PUSH Q4H PRN Nausea Thiamine HCl 100 mg 02/01/24 09:00 02/02/24 08:26 Thiamine Hcl 200 Mg/2 Ml Vial IV PUSH 100 mg QAM JENY Administration Radiology Results: ITS Impressions Abdomen/Pelvis CT 01/30/24 23:48 IMPRESSION: 1. Likely choledocholithiasis with secondary biliary obstruction and suspicion for developing acute cholecystitis. Correlate with liver function tests and for Devine sign. Could consider further evaluation with MRCP, right upper quadrant ultrasound or HIDA scan depending upon clinical suspicion and specific question to be addressed. 2. Acute to subacute L1 and L3 compression fractures which are new since 3 months prior. MRCP 01/31/24 09:59 IMPRESSION: 1. Choledocholithiasis with intrahepatic and extrahepatic biliary duct dilatation and gallbladder distention. Labs Labs: Laboratory Results - last 24 hr 02/02/24 07:12 WBC 6.6 RBC 3.91 L Hgb 12.2 Hct 38.7 MCV 99.0 MCH 31.2 MCHC 31.5 L RDW 13.9 Plt Count 138 L MPV 11.8 H Immature Gran % (Auto) 0.3 Neut % (Auto) 79.0 H Lymph % (Auto) 13.9 L [place] % (Auto) 6.0 Eos % (Auto) 0.3 Baso % (Auto) 0.5 Lymph # (Auto) 0.92 [place] # (Auto) 0.4 Eos # (Auto) 0.0 Baso # (Auto) 0.0 Abs Immat Gran (auto) 0.02 Absolute Neuts (auto) 5.2 Absolute Nucleated RBC 0.000 Nucleated RBC % 0.0 % Immature Plt Fraction 9.6 Sodium 135 L Potassium 3.3 L Chloride 100 Carbon Dioxide 24 Anion Gap 11 BUN 9 Creatinine 0.50 L Estim Creat Clear Calc 93 Estimated GFR > 60 Glucose 111 H Calcium 9.1 Total Bilirubin 6.6 H AST 58 H ALT 44 H Alkaline Phosphatase 185 H Total Protein 8.0 Albumin 3.9 Amylase 211 H Lipase 1428 H
--- NOTE | 2024-02-02 09:18 | PM.IMPN ---
Progress Note: A&P Assessment and Plan (1) Acute cholecystitis: Code(s): K81.0 - Acute cholecystitis Status: Acute Assessment and Plan: admit to regular medical floor started on Rocephin and Flagyl GI consult General surgery consult - clear liquid now- npo at midnight-ercp in am 01/31 - surgery on board- recommendations- She will need ERCP after which have recommended laparoscopic cholecystectomy. pt wants to wait after ERCp and decide on surgery after. (2) Choledocholithiasis: Code(s): K80.50 - Calculus of bile duct without cholangitis or cholecystitis without obstruction Status: Acute Assessment and Plan: GI consult General surgery consult - see above (3) Alcohol abuse: Code(s): F10.10 - Alcohol abuse, uncomplicated Status: Acute Assessment and Plan: CIWA as needed alcohol cessation counselling completed (4) GERD (gastroesophageal reflux disease): Qualifiers: Esophagitis bleeding: without hemorrhage Esophagitis presence: with esophagitis Qualified Code(s): K21.00 - Gastro-esophageal reflux disease with esophagitis, without bleeding Code(s): K21.9 - Gastro-esophageal reflux disease without esophagitis Status: Acute Assessment and Plan: PPI (5) UTI (urinary tract infection): Code(s): N39.0 - Urinary tract infection, site not specified Status: Acute Assessment and Plan: on Rocephin - final culture is negative (6) Pancreatitis, acute: Qualifiers: Acute pancreatitis complication: uninfected necrosis Pancreatitis type: unspecified pancreatitis type Qualified Code(s): K85.91 - Acute pancreatitis with uninfected necrosis, unspecified Code(s): K85.90 - Acute pancreatitis without necrosis or infection, unspecified Status: Acute Assessment and Plan: - surgery is following - s/s of pancreatitis - Liver enzymes remains elevated -Will have to delay surgery until pancreatitis has improved - NPO, IV fluids, pain control. (7) Status post endoscopic retrograde cholangiopancreatography: Code(s): Z98.890 - Other specified postprocedural states Status: Acute Assessment and Plan: GI is following, notes reviewed: The patient's worsening pain might represent post ERCP pancreatitis. We'll increase LR fluid rate to the recommended 3 ml/kg/hr for the next 8 hours (180 ml per hour), then keep maintenance of 150 ml/hour for the rest of the day. Keep analgesics. Will check CMP in the morning and add amylase, lipase and CRP. 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 Remains NPO with IV fluids. when i examined ehr-she reported pain at 3- requesting Dilaudid to be every3 h scheduled and not PRN. We discussed that it could be dangerous and it is safer to utilize pain medication when it is truly needed. Review of Systems Review of Systems: generalized tenderness to abd Gastrointestinal: Gastrointestinal: Reports abdominal pain and Reports nausea Musculoskeletal: Musculoskeletal: Denies back pain Psychiatric: Psychiatric: Reports anxiety Exam Narrative: in bed, appears comfortable Const: General: comfortable, no acute distress, well developed, alert, awake and average body habitus Nutritional Appearance: average body habitus Orientation/consciousness: patient oriented x3 Other: looks older than stated age HENMT: Head: normal to inspection, normocephalic and atraumatic Ears: hearing grossly normal bilaterally Face/Nose/Sinus: normal facial exam Face and sinus: normal facial exam Eyes: General: appearance normal, both eyes and all related structures Pupils: Equal, round and reactive pupils present EOM: EOMs intact bilaterally Neck: Neck: full ROM, no lymphadenopathy and no JVD Thyroid: thyroid normal Lymphatic: no lymphadenopathy noted Resp: Effort & Inspection: normal respiratory effort and able to speak in complete sentences Auscultation: clear to auscultation bilaterally Cardio: Jugular venous distension: no JVD Rate: regular rate Rhythm: regular rhythm Heart sounds: S1 normal heart sound present and S2 normal heart sound present : General: Yes deferred Skin: Rashes: no rashes Wounds: no wounds Neuro: General: patient oriented x3 and CN's II-XI intact bilaterally Cranial nerves: Yes CN's II-XII intact bilaterally and Yes Equal, round and reactive pupils present Cognition (Neuro): normal cognition Speech: normal speech Gait exam (Neuro): Normal gait present Motor exam (neuro): 5/5 motor strength present throughout Extrem: General: normal to inspection, full ROM, no joint enlargement and no pedal edema Objective Data Vital Signs Vital Signs: Vital Signs - 24 hr 02/01/24 11:46 02/01/24 14:05 02/01/24 14:15 Temperature 97.2 F L 96.6 F L Pulse Rate 55 L 46 L 57 L Respiratory Rate 18 12 18 Blood Pressure 142/73 H 158/82 H 160/101 H Pulse Oximetry 100 100 99 Oxygen Delivery Room Air Room Air Room Air 02/01/24 14:25 02/01/24 14:35 02/01/24 14:45 Temperature Pulse Rate 60 60 54 L Respiratory Rate 17 17 17 Blood Pressure 175/96 H 170/106 H 172/88 H Pulse Oximetry 100 100 100 Oxygen Delivery Room Air Room Air Room Air 02/01/24 14:55 02/01/24 15:05 02/01/24 20:00 Temperature Pulse Rate 54 L 50 L Respiratory Rate 21 H 17 Blood Pressure 172/87 H 148/83 H Pulse Oximetry 100 100 Oxygen Delivery Room Air Room Air Room Air 02/01/24 21:29 02/02/24 05:22 Temperature 97.3 F L 97.3 F L Pulse Rate 62 50 L Respiratory Rate 20 16 Blood Pressure 148/86 H 156/84 H Pulse Oximetry 98 98 Oxygen Delivery Intake/Output Intake/Output: Intake & Output 01/30/24 01/31/24 02/01/24 02/02/24 23:59 23:59 23:59 23:59 Intake Total 2800 2675.8 1150 Output Total 300 400 Balance 2800 2375.8 750 Meds/Results Medications: Active Medications Generic Name Dose Route Start Last Admin Trade Name Freq PRN Reason Stop Dose Admin Dextrose 12.5 gm 01/31/24 01:50 Dextrose 50% 25 Gm/50 Ml Syringe IV PUSH PRN PRN Hypoglycemia Protocol Glucagon 1 mg 01/31/24 01:50 Glucagon For Inj 1 Mg Vial IM PRN PRN Hypoglycemia Protocol Glucose 15 gm 01/31/24 01:50 Glucose Oral Gel 15 Gm Of Glucse In 37.5 Gm Tube PO PRN PRN Hypoglycemia Protocol Hydromorphone HCl 1 mg 02/02/24 08:07 02/02/24 09:17 Hydromorphone Hcl Inj (*Crx) 1 Mg/Ml Syr IV PUSH 1 mg Q2H PRN Administration Pain Rated 7-10 Hydromorphone HCl 0.5 mg 02/02/24 08:06 Hydromorphone Hcl Inj (*Crx) 1 Mg/Ml Syr IV PUSH Q2H PRN Pain Rated 4-6 Ceftriaxone Sodium 1 gm in 50 mls @ 100 mls/hr 02/01/24 03:00 02/02/24 02:50 Rocephin 1 Gm/Ns 50 Ml IVPB Infused Q24H JENY Infusion Dextrose 1,000 mls @ 100 mls/hr 01/31/24 01:50 Dextrose 5% 1,000 Ml IVPB PRN PRN Hypoglycemia Protocol Metronidazole 500 mg in 100 mls @ 100 mls/hr 02/01/24 15:35 02/02/24 06:30 Flagyl 500 Mg/Iso Soln 100 Ml IVPB Infused Q8HR JENY Infusion Dextrose/Lactated Ringer's 1,000 mls @ 150 mls/hr 02/02/24 02:00 02/02/24 05:33 Dextrose 5%/Lactated Ringers IV CONT 150 mls/hr .Q6H40M JENY Administration Ondansetron HCl 4 mg 01/31/24 01:37 Ondansetron Inj 4 Mg/2 Ml Vial IV PUSH Q4H PRN Nausea Thiamine HCl 100 mg 02/01/24 09:00 02/02/24 08:26 Thiamine Hcl 200 Mg/2 Ml Vial IV PUSH 100 mg QAM JENY Administration Radiology Results: ITS Impressions Abdomen/Pelvis CT 01/30/24 23:48 IMPRESSION: 1. Likely choledocholithiasis with secondary biliary obstruction and suspicion for developing acute cholecystitis. Correlate with liver function tests and for Devine sign. Could consider further evaluation with MRCP, right upper quadrant ultrasound or HIDA scan depending upon clinical suspicion and specific question to be addressed. 2. Acute to subacute L1 and L3 compression fractures which are new since 3 months prior. MRCP 01/31/24 09:59 IMPRESSION: 1. Choledocholithiasis with intrahepatic and extrahepatic biliary duct dilatation and gallbladder distention. Labs Labs: Laboratory Results - last 24 hr 02/02/24 07:12 WBC 6.6 RBC 3.91 L Hgb 12.2 Hct 38.7 MCV 99.0 MCH 31.2 MCHC 31.5 L RDW 13.9 Plt Count 138 L MPV 11.8 H Immature Gran % (Auto) 0.3 Neut % (Auto) 79.0 H Lymph % (Auto) 13.9 L [place] % (Auto) 6.0 Eos % (Auto) 0.3 Baso % (Auto) 0.5 Lymph # (Auto) 0.92 [place] # (Auto) 0.4 Eos # (Auto) 0.0 Baso # (Auto) 0.0 Abs Immat Gran (auto) 0.02 Absolute Neuts (auto) 5.2 Absolute Nucleated RBC 0.000 Nucleated RBC % 0.0 % Immature Plt Fraction 9.6 Sodium 135 L Potassium 3.3 L Chloride 100 Carbon Dioxide 24 Anion Gap 11 BUN 9 Creatinine 0.50 L Estim Creat Clear Calc 93 Estimated GFR > 60 Glucose 111 H Calcium 9.1 Total Bilirubin 6.6 H AST 58 H ALT 44 H Alkaline Phosphatase 185 H Total Protein 8.0 Albumin 3.9 Amylase 211 H Lipase 1428 H Quality VTE Prophylaxis VTE prophylaxis: mechanical ordered
--- NOTE | 2024-02-02 11:23 | WPDGIPROGNO ---
Progress Note: A&P Assessment and Plan (1) Status post endoscopic retrograde cholangiopancreatography: Code(s): Z98.890 - Other specified postprocedural states Status: Acute (2) Pancreatitis, acute: Qualifiers: Pancreatitis type: unspecified pancreatitis type Acute pancreatitis complication: uninfected necrosis Qualified Code(s): K85.91 - Acute pancreatitis with uninfected necrosis, unspecified Code(s): K85.90 - Acute pancreatitis without necrosis or infection, unspecified Status: Acute Assessment and Plan: Pt has post ERCP pancreatitis. Despite severity of pain, objective parameters of prognosis are favorable : no SIRS, WBC normal, BUN normal, Hct below 42, good urinary output. She received 3 ml/kg/hr of LR d5% between 6 pm and 2 am, then decreased rate to 150 cc/hr and still tolerating, latest lung exam and O2 sat ok. Will continue monitoring and get 2 pm labs. Surgery on board but will delay lap crystal until pancreatitis is resolved. Subjective Date/time seen: 02/02/24 11:23 Interval history: the patient started having severe pain since last night, requiring Dilaudid every 3 hr in average. Exam Const: Other: distressed, complaining of severe pain Resp: Effort & Inspection: normal respiratory effort Auscultation: clear to auscultation bilaterally, no crackles, no rales, no rhonchi and no wheezes Cardio: Rate: regular rate GI: GI Palp: Yes Tenderness to palpation present (GI) Other: epigastric tenderness Skin: Other: mid jaundice Psych: Mental Status: mental status grossly normal Objective Data Vital Signs Vital Signs: Vital Signs - 24 hr 02/01/24 11:46 02/01/24 14:05 02/01/24 14:15 Temperature 97.2 F L 96.6 F L Pulse Rate 55 L 46 L 57 L Respiratory Rate 18 12 18 Blood Pressure 142/73 H 158/82 H 160/101 H Pulse Oximetry 100 100 99 Oxygen Delivery Room Air Room Air Room Air 02/01/24 14:25 02/01/24 14:35 02/01/24 14:45 Temperature Pulse Rate 60 60 54 L Respiratory Rate 17 17 17 Blood Pressure 175/96 H 170/106 H 172/88 H Pulse Oximetry 100 100 100 Oxygen Delivery Room Air Room Air Room Air 02/01/24 14:55 02/01/24 15:05 02/01/24 20:00 Temperature Pulse Rate 54 L 50 L Respiratory Rate 21 H 17 Blood Pressure 172/87 H 148/83 H Pulse Oximetry 100 100 Oxygen Delivery Room Air Room Air Room Air 02/01/24 21:29 02/02/24 05:22 02/02/24 08:20 Temperature 97.3 F L 97.3 F L Pulse Rate 62 50 L Respiratory Rate 20 16 Blood Pressure 148/86 H 156/84 H Pulse Oximetry 98 98 Oxygen Delivery Room Air Intake/Output Intake/Output: Intake & Output 01/30/24 01/31/24 02/01/24 02/02/24 23:59 23:59 23:59 23:59 Intake Total 2800 2675.8 1390 Output Total 300 600 Balance 2800 2375.8 790 Meds/Results Medications: Active Medications Generic Name Dose Route Start Last Admin Trade Name Freq PRN Reason Stop Dose Admin Dextrose 12.5 gm 01/31/24 01:50 Dextrose 50% 25 Gm/50 Ml Syringe IV PUSH PRN PRN Hypoglycemia Protocol Glucagon 1 mg 01/31/24 01:50 Glucagon For Inj 1 Mg Vial IM PRN PRN Hypoglycemia Protocol Glucose 15 gm 01/31/24 01:50 Glucose Oral Gel 15 Gm Of Glucse In 37.5 Gm Tube PO PRN PRN Hypoglycemia Protocol Hydromorphone HCl 1 mg 02/02/24 08:07 02/02/24 09:17 Hydromorphone Hcl Inj (*Crx) 1 Mg/Ml Syr IV PUSH 1 mg Q2H PRN Administration Pain Rated 7-10 Hydromorphone HCl 0.5 mg 02/02/24 08:06 Hydromorphone Hcl Inj (*Crx) 1 Mg/Ml Syr IV PUSH Q2H PRN Pain Rated 4-6 Ceftriaxone Sodium 1 gm in 50 mls @ 100 mls/hr 02/01/24 03:00 02/02/24 02:50 Rocephin 1 Gm/Ns 50 Ml IVPB Infused Q24H JENY Infusion Dextrose 1,000 mls @ 100 mls/hr 01/31/24 01:50 Dextrose 5% 1,000 Ml IVPB PRN PRN Hypoglycemia Protocol Metronidazole 500 mg in 100 mls @ 100 mls/hr 02/01/24 15:35 02/02/24 06:30 Flagyl 500 Mg/Iso Soln 100 Ml IVPB Infused Q8HR JENY Infusion Dextrose/Lactated Ringer's 1,000 mls @ 150 mls/hr 02/02/24 02:00 02/02/24 05:33 Dextrose 5%/Lactated Ringers IV CONT 150 mls/hr .Q6H40M JENY Administration Ondansetron HCl 4 mg 01/31/24 01:37 Ondansetron Inj 4 Mg/2 Ml Vial IV PUSH Q4H PRN Nausea Thiamine HCl 100 mg 02/01/24 09:00 02/02/24 08:26 Thiamine Hcl 200 Mg/2 Ml Vial IV PUSH 100 mg QAM JENY Administration Radiology Results: ITS Impressions Abdomen/Pelvis CT 01/30/24 23:48 IMPRESSION: 1. Likely choledocholithiasis with secondary biliary obstruction and suspicion for developing acute cholecystitis. Correlate with liver function tests and for Devine sign. Could consider further evaluation with MRCP, right upper quadrant ultrasound or HIDA scan depending upon clinical suspicion and specific question to be addressed. 2. Acute to subacute L1 and L3 compression fractures which are new since 3 months prior. MRCP 01/31/24 09:59 IMPRESSION: 1. Choledocholithiasis with intrahepatic and extrahepatic biliary duct dilatation and gallbladder distention. Labs Labs: Laboratory Results - last 24 hr 02/02/24 07:12 WBC 6.6 RBC 3.91 L Hgb 12.2 Hct 38.7 MCV 99.0 MCH 31.2 MCHC 31.5 L RDW 13.9 Plt Count 138 L MPV 11.8 H Immature Gran % (Auto) 0.3 Neut % (Auto) 79.0 H Lymph % (Auto) 13.9 L [place] % (Auto) 6.0 Eos % (Auto) 0.3 Baso % (Auto) 0.5 Lymph # (Auto) 0.92 [place] # (Auto) 0.4 Eos # (Auto) 0.0 Baso # (Auto) 0.0 Abs Immat Gran (auto) 0.02 Absolute Neuts (auto) 5.2 Absolute Nucleated RBC 0.000 Nucleated RBC % 0.0 % Immature Plt Fraction 9.6 Sodium 135 L Potassium 3.3 L Chloride 100 Carbon Dioxide 24 Anion Gap 11 BUN 9 Creatinine 0.50 L Estim Creat Clear Calc 93 Estimated GFR > 60 Glucose 111 H Calcium 9.1 Total Bilirubin 6.6 H AST 58 H ALT 44 H Alkaline Phosphatase 185 H Total Protein 8.0 Albumin 3.9 Amylase 211 H Lipase 1428 H
[2024-02-02 14:00] VITALS: BP 122/41; PULSE 78; RESP 18; TEMP 36.1; O2SAT 94
[2024-02-02 14:25] LABS: Basophils Percent Auto 0.5 % (0.2-1.2); Eosinophils Percent Auto 0.5 % (0-4.4); Hematocrit 33.6 % (37.0-47.0); Hemoglobin 11.3 g/dL (12.0-15.0); Immature Granulocyte Absolute 0.02 K/mm3 (0.00-0.031); Immature Granulocyte Percent A 0.3 % (0-0.5); Lymphocytes Absolute Auto 0.64 K/mm3 (0.9-3.2); Lymphocytes Percent Auto 9.8 % (18.3-44.2); Mean Corpuscular HGB Conc 33.6 g/dl (32-36); Mean Corpuscular Hemoglobin 32.1 pg (26-34); Mean Corpuscular Volume 95.5 fl (80-100); Mean Platelet Volume 11.7 fl (7.4-10.4); Monocytes Absolute Auto 0.6 K/mm3 (0.1-0.6); Monocytes Percent Auto 8.4 % (2.6-8.5); Neutrophils Absolute Auto 5.2 K/mm3 (1.3-6.7); Neutrophils Percent Auto 80.5 % (45.5-73.1); Platelet Count Result 117 k/mm3 (150-375); Red Blood Count 3.52 M/mm3 (4.2-5.4); Red Cell Distribution Width 14.1 % (11.5-14.5); White Blood Count 6.5 K/mm3 (4.5-10.0)
[2024-02-02 14:28] LABS: Alanine Aminotransferase 39 U/L (6-35); Albumin Level 3.4 g/dL (3.5-5.1); Alkaline Phosphatase 165 U/L (38-126); Anion Gap 9 mmol/L (4-12); Aspartate Amino Transferase 54 U/L (14-36); Bilirubin,Total 6.9 mg/dL (0.2-1.3); Blood Urea Nitrogen 8 mg/dL (7-17); CRP 3.7 mg/dL (<1.0); Calcium 9.1 mg/dL (8.4-10.2); Carbon Dioxide 29 mmol/L (22-30); Chloride 102 mmol/L (98-107); Estimated CRCL calculation 93 ml/min; Estimated Glomerular Filt Rate > 60; Glucose 99 mg/dL (65-110); Potassium 3.2 mmol/L (3.4-5.0); Sodium 140 mmol/L (137-145)
[2024-02-02] MEDS: DEXTROSE 5%/LACTATED RINGERS 1,000 ML 100 ML IV CONT (16:41)
[2024-02-02 20:01] VITALS: BP 125/76; PULSE 86; RESP 16; TEMP 36.7; O2SAT 98
[2024-02-03] MEDS: HYDROmorphone HCL INJ (*CRX) 1 MG/ML SYR IV PUSH ×4 (03:48→18:43)
[2024-02-03 05:10] VITALS: BP 128/76; PULSE 84; RESP 16; TEMP 36.2; O2SAT 96
[2024-02-03] MEDS: metroNIDAZOLE 500 MG/ISO 100ML 500 MG/100 ML BAG 100 MG IVPB ×3 (05:31→21:31)
[2024-02-03] MEDS: DEXTROSE 5%/LACTATED RINGERS 1,000 ML 100 ML IV CONT (05:31)
[2024-02-03 06:27] LABS: Hemoglobin 10.4 g/dL (12.0-15.0); Mean Corpuscular HGB Conc 33.5 g/dl (32-36); Mean Corpuscular Hemoglobin 31.7 pg (26-34); Mean Corpuscular Volume 94.5 fl (80-100); Mean Platelet Volume 12.2 fl (7.4-10.4); Platelet Count Result 120 k/mm3 (150-375); Red Blood Count 3.28 M/mm3 (4.2-5.4); Red Cell Distribution Width 14.2 % (11.5-14.5); White Blood Count 7.8 K/mm3 (4.5-10.0)
[2024-02-03 06:33] LABS: Alanine Aminotransferase 30 U/L (6-35); Albumin Level 2.9 g/dL (3.5-5.1); Alkaline Phosphatase 138 U/L (38-126); Anion Gap 9 mmol/L (4-12); Aspartate Amino Transferase 33 U/L (14-36); Blood Urea Nitrogen 4 mg/dL (7-17); CRP 7.5 mg/dL (<1.0); Calcium 8.5 mg/dL (8.4-10.2); Carbon Dioxide 27 mmol/L (22-30); Chloride 101 mmol/L (98-107); Estimated CRCL calculation 93 ml/min; Estimated Glomerular Filt Rate > 60; Glucose 109 mg/dL (65-110); Lipase 68 U/L (23-300); Potassium 2.8 mmol/L (3.4-5.0); Sodium 137 mmol/L (137-145)
[2024-02-03 06:56] LABS: Magnesium 0.9 mg/dL (1.6-2.3)
[2024-02-03] MEDS: POTASSIUM CHLORIDE INJ 40 MEQ in SODIUM CHLORIDE 0.9% IV 500 ML 130 MEQ IVPB (07:37)
[2024-02-03] MEDS: THIAMINE HCL 200 MG/2 ML VIAL 100 MG IV PUSH (07:51)
--- NOTE | 2024-02-03 10:24 | P.PNIM_ITS ---
Progress Note: A&P Assessment and Plan (1) Acute cholecystitis: Code(s): K81.0 - Acute cholecystitis Status: Acute Assessment and Plan: admit to regular medical floor started on Rocephin and Flagyl GI consult General surgery consult - clear liquid now- npo at midnight-ercp in am 01/31 - surgery on board- recommendations- She will need ERCP after which have recommended laparoscopic cholecystectomy. pt wants to wait after ERCp and decide on surgery after. 02/02- surgery planning on proceeding with Lap crystal sometime soon (2) Choledocholithiasis: Code(s): K80.50 - Calculus of bile duct without cholangitis or cholecystitis without obstruction Status: Acute Assessment and Plan: GI consult General surgery consult - see above (3) Alcohol abuse: Code(s): F10.10 - Alcohol abuse, uncomplicated Status: Acute Assessment and Plan: CIWA as needed alcohol cessation counselling completed (4) GERD (gastroesophageal reflux disease): Qualifiers: Esophagitis bleeding: without hemorrhage Esophagitis presence: with esophagitis Qualified Code(s): K21.00 - Gastro-esophageal reflux disease with esophagitis, without bleeding Code(s): K21.9 - Gastro-esophageal reflux disease without esophagitis Status: Acute Assessment and Plan: PPI (5) UTI (urinary tract infection): Code(s): N39.0 - Urinary tract infection, site not specified Status: Acute Assessment and Plan: - final culture is negative (6) Pancreatitis, acute: Qualifiers: Acute pancreatitis complication: uninfected necrosis Pancreatitis type: unspecified pancreatitis type Qualified Code(s): K85.91 - Acute pancreatitis with uninfected necrosis, unspecified Code(s): K85.90 - Acute pancreatitis without necrosis or infection, unspecified Status: Acute Assessment and Plan: - surgery is following - s/s of pancreatitis - Liver enzymes remains elevated -Will have to delay surgery until pancreatitis has improved - NPO, IV fluids, pain control. -surgery planning on proceeding with lap crystal- since still RUQ pain (7) Status post endoscopic retrograde cholangiopancreatography: Code(s): Z98.890 - Other specified postprocedural states Status: Acute Assessment and Plan: GI is following, notes reviewed: The patient's worsening pain might represent post ERCP pancreatitis. We'll increase LR fluid rate to the recommended 3 ml/kg/hr for the next 8 hours (180 ml per hour), then keep maintenance of 150 ml/hour for the rest of the day. Keep analgesics. Will check CMP in the morning and add amylase, lipase and CRP. 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 Remains NPO with IV fluids. K,Mg low- replaced IV. Surgery saw her today- plant to proceed with Lap crystal soon. Review of Systems Review of Systems: generalized tenderness to abd Gastrointestinal: Gastrointestinal: Reports abdominal pain and Reports nausea Musculoskeletal: Musculoskeletal: Denies back pain Psychiatric: Psychiatric: Reports anxiety Exam Narrative: appears comfortable Const: General: comfortable, no acute distress, well developed, alert, awake and average body habitus Nutritional Appearance: average body habitus Orie ntation/consciousness: patient oriented x3 Other: looks older than stated age HENMT: Head: normal to inspection, normocephalic and atraumatic Ears: hearing grossly normal bilaterally Face/Nose/Sinus: normal facial exam Face and sinus: normal facial exam Eyes: General: appearance normal, both eyes and all related structures Pup ils: Equal, round and reactive pupils present EOM: EOMs intact bilaterally Neck: Neck: full ROM, no lymphadenopathy and no JVD Thyroid: thyroid normal Lymphatic: no lymphadenopathy noted Resp: Effort & Inspection: normal respiratory effort and able to speak in complete sentences Auscultation: clear to auscultation bilaterally Cardio: Jugular venous distension: no JVD Rate: regular rate Rhythm: regular rhythm Heart sounds: S1 normal heart sound present and S2 normal heart sound present : General: Yes deferred Skin: Rashes: no rashes Wounds: no wounds Neuro: General: patient oriented x3 and CN's II-XI intact bilaterally Crani al nerves: Yes CN's II-XII intact bilaterally and Yes Equal, round and reactive pupils present Cognition (Neuro): normal cognition Speech: normal speech Gait exam (Neuro): Normal gait present Motor exam (neuro): 5/5 motor strength present throughout Extrem: General: normal to inspection, full ROM, no joint enlargement and no pedal edema Objective Data Vital Signs Vital Signs: Vital Signs - 24 hr 02/02/24 14:00 02/02/24 20:01 02/02/24 20:00 Temperature 96.9 F L 98.1 F Pulse Rate 78 86 Respiratory Rate 18 16 Blood Pressure 122/41 L 125/76 Pulse Oximetry 94 98 Oxygen Delivery Room Air 02/03/24 05:10 Temperature 97.2 F L Pulse Rate 84 Respiratory Rate 16 Blood Pressure 128/76 Pulse Oximetry 96 Oxygen Delivery Intake/Output Intake/Output: Intake & Output 01/31/24 02/01/24 02/02/24 02/03/24 23:59 23:59 23:59 23:59 Intake Total 2800 2678.0 2790 1658.3 Output Total 300 1050 600 Balance 2800 2378.0 1740 1058.3 Meds/Results Medications: Active Medications Generic Name Dose Route Start Last Admin Trade Name Freq PRN Reason Stop Dose Admin Dextrose 12.5 gm 01/31/24 01:50 Dextrose 50% 25 Gm/50 Ml Syringe IV PUSH PRN PRN Hypoglycemia Protocol Glucagon 1 mg 01/31/24 01:50 Glucagon For Inj 1 Mg Vial IM PRN PRN Hypoglycemia Protocol Glucose 15 gm 01/31/24 01:50 Glucose Oral Gel 15 Gm Of Glucse In 37.5 Gm Tube PO PRN PRN Hypoglycemia Protocol Hydromorphone HCl 1 mg 02/02/24 08:07 02/03/24 07:51 Hydromorphone Hcl Inj (*Crx) 1 Mg/Ml Syr IV PUSH 1 mg Q2H PRN Administration Pain Rated 7-10 Hydromorphone HCl 0.5 mg 02/02/24 08:06 Hydromorphone Hcl Inj (*Crx) 1 Mg/Ml Syr IV PUSH Q2H PRN Pain Rated 4-6 Ceftriaxone Sodium 1 gm in 50 mls @ 100 mls/hr 02/01/24 03:00 02/03/24 02:50 Rocephin 1 Gm/Ns 50 Ml IVPB Infused Q24H JENY Infusion Dextrose 1,000 mls @ 100 mls/hr 01/31/24 01:50 Dextrose 5% 1,000 Ml IVPB PRN PRN Hypoglycemia Protocol Metronidazole 500 mg in 100 mls @ 100 mls/hr 02/01/24 15:35 02/03/24 06:29 Flagyl 500 Mg/Iso Soln 100 Ml IVPB Infused Q8HR JENY Infusion Dextrose/Lactated Ringer's 1,000 mls @ 50 mls/hr 02/02/24 16:15 02/03/24 09:36 Dextrose 5%/Lactated Ringers IV CONT 50 mls/hr .Q20H JENY Infusion Potassium Chloride 40 meq/ 520 mls @ 130 mls/hr 02/03/24 06:43 02/03/24 07:37 Sodium Chloride IVPB 02/03/24 10:42 130 mls/hr ONCE ONE Administration Potassium Chloride 100 mls @ 50 mls/hr 02/03/24 13:00 Kcl 20 Meq/Sw 100 Ml IVPB 02/03/24 14:59 ONCE ONE Ondansetron HCl 4 mg 01/31/24 01:37 Ondansetron Inj 4 Mg/2 Ml Vial IV PUSH Q4H PRN Nausea Thiamine HCl 100 mg 02/01/24 09:00 02/03/24 07:51 Thiamine Hcl 200 Mg/2 Ml Vial IV PUSH 100 mg QAM JENY Administration Radiology Results: ITS Impressions Abdomen/Pelvis CT 01/30/24 23:48 IMPRESSION: 1. Likely choledocholithiasis with secondary biliary obstruction and suspicion for developing acute cholecystitis. Correlate with liver function tests and for Devine sign. Could consider further evaluation with MRCP, right upper quadrant ultrasound or HIDA scan depending upon clinical suspicion and specific question to be addressed. 2. Acute to subacute L1 and L3 compression fractures which are new since 3 months prior. MRCP 01/31/24 09:59 IMPRESSION: 1. Choledocholithiasis with intrahepatic and extrahepatic biliary duct dilatation and gallbladder distention. Labs Labs: Laboratory Results - last 24 hr 02/02/24 02/03/24 02/03/24 14:04 05:56 05:58 WBC 6.5 7.8 RBC 3.52 L 3.28 L Hgb 11.3 L 10.4 L Hct 33.6 L 31.0 L MCV 95.5 94.5 MCH 32.1 31.7 MCHC 33.6 33.5 RDW 14.1 14.2 Plt Count 117 L 120 L MPV 11.7 H 12.2 H Immature Gran % (Auto) 0.3 Neut % (Auto) 80.5 H Lymph % (Auto) 9.8 L [place] % (Auto) 8.4 Eos % (Auto) 0.5 Baso % (Auto) 0.5 Lymph # (Auto) 0.64 L [place] # (Auto) 0.6 Eos # (Auto) 0.0 Baso # (Auto) 0.0 Abs Immat Gran (auto) 0.02 Absolute Neuts (auto) 5.2 Absolute Nucleated RBC 0.000 Nucleated RBC % 0.0 % Immature Plt Fraction 9.0 Sodium 140 137 Potassium 3.2 L 2.8 L* Chloride 102 101 Carbon Dioxide 29 27 Anion Gap 9 9 BUN 8 4 L Creatinine 0.50 L 0.50 L Estim Creat Clear Calc 93 93 Estimated GFR > 60 > 60 Glucose 99 109 Calcium 9.1 8.5 Magnesium 0.9 L Total Bilirubin 6.9 H 3.0 H AST 54 H 33 ALT 39 H 30 Alkaline Phosphatase 165 H 138 H C-Reactive Protein 3.7 H 7.5 H Total Protein 7.0 6.0 L Albumin 3.4 L 2.9 L Lipase 68 Quality VTE Prophylaxis VTE prophylaxis: mechanical ordered
--- NOTE | 2024-02-03 10:30 | P.PNGI_ITS ---
Progress Note: A&P Assessment and Plan (1) Pancreatitis, acute: Qualifiers: Pancreatitis type: unspecified pancreatitis type Acute pancreatitis complication: uninfected necrosis Qualified Code(s): K85.91 - Acute pancreatitis with uninfected necrosis, unspecified Code(s): K85.90 - Acute pancreatitis without necrosis or infection, unspecified Status: Acute Assessment and Plan: The patient's acute pancreatitis post ERCP is currently resolved, usual prognostic parameters such as BUN and hematocrit are within normal limits. She still has right upper quadrant discomfort with deep breaths and with movement probably attributable to her acute cholecystitis. Magnesium and potassium levels are being corrected. Fluid rate decreased to maintenance at 50 cc/hour, and patient will be provided with full liquid diet today. She is probably ready for laparoscopic cholecystectomy early next week. Surgery to continue to follow. (2) Status post endoscopic retrograde cholangiopancreatography: Code(s): Z98.890 - Other specified postprocedural states Status: Acute (3) Acute cholecystitis: Code(s): K81.0 - Acute cholecystitis Status: Acute Subjective Date/time seen: 02/03/24 10:30 Interval history: The patient has been reporting right upper quadrant pain, no nausea, no vomiting and feels hungry. Exam Const: General: cooperative Resp: Effort & Inspection: normal respiratory effort and able to speak in complete sentences Auscultation: clear to auscultation bilaterally Cardio: Rate: regular rate Rhythm: regular rhythm GI: Inspection: normal to inspection GI Palp: No No hepatosplenomegaly present Auscultation: normal bowel sounds Skin: General skin exam: normal color Psych: Appearance: grossly normal Mental Status: mental status grossly normal Objective Data Vital Signs Vital Signs: Vital Signs - 24 hr 02/02/24 14:00 02/02/24 20:01 02/02/24 20:00 Temperature 96.9 F L 98.1 F Pulse Rate 78 86 Respiratory Rate 18 16 Blood Pressure 122/41 L 125/76 Pulse Oximetry 94 98 Oxygen Delivery Room Air 02/03/24 05:10 Temperature 97.2 F L Pulse Rate 84 Respiratory Rate 16 Blood Pressure 128/76 Pulse Oximetry 96 Oxygen Delivery Intake/Output Intake/Output: Intake & Output 01/31/24 02/01/24 02/02/24 02/03/24 23:59 23:59 23:59 23:59 Intake Total 2800 2678.0 2790 1658.3 Output Total 300 1050 600 Balance 2800 2378.0 1740 1058.3 Meds/Results Medications: Active Medications Generic Name Dose Route Start Last Admin Trade Name Freq PRN Reason Stop Dose Admin Dextrose 12.5 gm 01/31/24 01:50 Dextrose 50% 25 Gm/50 Ml Syringe IV PUSH PRN PRN Hypoglycemia Protocol Glucagon 1 mg 01/31/24 01:50 Glucagon For Inj 1 Mg Vial IM PRN PRN Hypoglycemia Protocol Glucose 15 gm 01/31/24 01:50 Glucose Oral Gel 15 Gm Of Glucse In 37.5 Gm Tube PO PRN PRN Hypoglycemia Protocol Hydromorphone HCl 1 mg 02/02/24 08:07 02/03/24 07:51 Hydromorphone Hcl Inj (*Crx) 1 Mg/Ml Syr IV PUSH 1 mg Q2H PRN Administration Pain Rated 7-10 Hydromorphone HCl 0.5 mg 02/02/24 08:06 Hydromorphone Hcl Inj (*Crx) 1 Mg/Ml Syr IV PUSH Q2H PRN Pain Rated 4-6 Ceftriaxone Sodium 1 gm in 50 mls @ 100 mls/hr 02/01/24 03:00 02/03/24 02:50 Rocephin 1 Gm/Ns 50 Ml IVPB Infused Q24H JENY Infusion Dextrose 1,000 mls @ 100 mls/hr 01/31/24 01:50 Dextrose 5% 1,000 Ml IVPB PRN PRN Hypoglycemia Protocol Metronidazole 500 mg in 100 mls @ 100 mls/hr 02/01/24 15:35 02/03/24 06:29 Flagyl 500 Mg/Iso Soln 100 Ml IVPB Infused Q8HR JENY Infusion Dextrose/Lactated Ringer's 1,000 mls @ 50 mls/hr 02/02/24 16:15 02/03/24 09:36 Dextrose 5%/Lactated Ringers IV CONT 50 mls/hr .Q20H JENY Infusion Potassium Chloride 40 meq/ 520 mls @ 130 mls/hr 02/03/24 06:43 02/03/24 07:37 Sodium Chloride IVPB 02/03/24 10:42 130 mls/hr ONCE ONE Administration Potassium Chloride 100 mls @ 50 mls/hr 02/03/24 13:00 Kcl 20 Meq/Sw 100 Ml IVPB 02/03/24 14:59 ONCE ONE Magnesium Sulfate 2 gm in 50 mls @ 25 mls/hr 02/03/24 10:27 Magnesium Sulf 2 Gm/Water 50ml IVPB 02/03/24 12:26 ONCE ONE Ondansetron HCl 4 mg 01/31/24 01:37 Ondansetron Inj 4 Mg/2 Ml Vial IV PUSH Q4H PRN Nausea Thiamine HCl 100 mg 02/01/24 09:00 02/03/24 07:51 Thiamine Hcl 200 Mg/2 Ml Vial IV PUSH 100 mg QAM JENY Administration Radiology Results: ITS Impressions Abdomen/Pelvis CT 01/30/24 23:48 IMPRESSION: 1. Likely choledocholithiasis with secondary biliary obstruction and suspicion for developing acute cholecystitis. Correlate with liver function tests and for Devine sign. Could consider further evaluation with MRCP, right upper quadrant ultrasound or HIDA scan depending upon clinical suspicion and specific question to be addressed. 2. Acute to subacute L1 and L3 compression fractures which are new since 3 months prior. MRCP 01/31/24 09:59 IMPRESSION: 1. Choledocholithiasis with intrahepatic and extrahepatic biliary duct dilatation and gallbladder distention. Labs Labs: Laboratory Results - last 24 hr 02/02/24 02/03/24 02/03/24 14:04 05:56 05:58 WBC 6.5 7.8 RBC 3.52 L 3.28 L Hgb 11.3 L 10.4 L Hct 33.6 L 31.0 L MCV 95.5 94.5 MCH 32.1 31.7 MCHC 33.6 33.5 RDW 14.1 14.2 Plt Count 117 L 120 L MPV 11.7 H 12.2 H Immature Gran % (Auto) 0.3 Neut % (Auto) 80.5 H Lymph % (Auto) 9.8 L [place] % (Auto) 8.4 Eos % (Auto) 0.5 Baso % (Auto) 0.5 Lymph # (Auto) 0.64 L [place] # (Auto) 0.6 Eos # (Auto) 0.0 Baso # (Auto) 0.0 Abs Immat Gran (auto) 0.02 Absolute Neuts (auto) 5.2 Absolute Nucleated RBC 0.000 Nucleated RBC % 0.0 % Immature Plt Fraction 9.0 Sodium 140 137 Potassium 3.2 L 2.8 L* Chloride 102 101 Carbon Dioxide 29 27 Anion Gap 9 9 BUN 8 4 L Creatinine 0.50 L 0.50 L Estim Creat Clear Calc 93 93 Estimated GFR > 60 > 60 Glucose 99 109 Calcium 9.1 8.5 Magnesium 0.9 L Total Bilirubin 6.9 H 3.0 H AST 54 H 33 ALT 39 H 30 Alkaline Phosphatase 165 H 138 H C-Reactive Protein 3.7 H 7.5 H Total Protein 7.0 6.0 L Albumin 3.4 L 2.9 L Lipase 68
[2024-02-03] MEDS: MAGNESIUM SULF 2 GM/WATER 50ML 2 GM/50 ML BAG IVPB (11:03)
[2024-02-03] MEDS: LIDOCAINE HCL 1% LOCAL INJ 2 ML AMPUL 5 ML INFILTRATE (13:30)
[2024-02-03 14:00] VITALS: BP 141/83; PULSE 80; RESP 16; TEMP 37.2; O2SAT 97
--- NOTE | 2024-02-03 14:17 | P.PNGS_ITS ---
Progress Note: A&P Assessment and Plan (1) Acute cholecystitis: Code(s): K81.0 - Acute cholecystitis Status: Acute Assessment and Plan: * Improving but still experiencing RUQ pain. Will probably need to proceed with Lap crystal sometime soon. Will discuss with anesthesiology about proper timing. Patient agreeable to proceeding during this hospitalization. (2) Pancreatitis, acute: Qualifiers: Pancreatitis type: unspecified pancreatitis type Acute pancreatitis complication: uninfected necrosis Qualified Code(s): K85.91 - Acute pancreatitis with uninfected necrosis, unspecified Code(s): K85.90 - Acute pancreatitis without necrosis or infection, unspecified Status: Acute (3) Choledocholithiasis: Code(s): K80.50 - Calculus of bile duct without cholangitis or cholecystitis without obstruction Status: Acute Subjective Subjective Date/Time Seen: 02/03/24 14:17 Interval history: Pain improved. Mostly in RUQ now. No nausea or vomiting. Exam GI: Inspection: non-distended GI Palp: Yes Soft to palpation, Yes Tender ness to palpation present (GI) (RUQ) and Yes Guarding due to palpation present (GI) (RUQ) Auscultation: normal bowel sounds Objective Data Vital Signs Vital Signs: Vital Signs - 24 hr 02/02/24 20:01 02/02/24 20:00 02/03/24 05:10 Temperature 98.1 F 97.2 F L Pulse Rate 86 84 Respiratory Rate 16 16 Blood Pressure 125/76 128/76 Pulse Oximetry 98 96 Oxygen Delivery Room Air 02/03/24 14:00 Temperature 98.9 F Pulse Rate 80 Respiratory Rate 16 Blood Pressure 141/83 H Pulse Oximetry 97 Oxygen Delivery Intake/Output Intake/Output: Intake & Output 01/31/24 02/01/24 02/02/24 02/03/24 23:59 23:59 23:59 23:59 Intake Total 2800 2678.0 2790 1658.3 Output Total 300 1050 600 Balance 2800 2378.0 1740 1058.3 Meds/Results Medications: Active Medications Generic Name Dose Route Start Last Admin Trade Name Freq PRN Reason Stop Dose Admin Dextrose 12.5 gm 01/31/24 01:50 Dextrose 50% 25 Gm/50 Ml Syringe IV PUSH PRN PRN Hypoglycemia Protocol Glucagon 1 mg 01/31/24 01:50 Glucagon For Inj 1 Mg Vial IM PRN PRN Hypoglycemia Protocol Glucose 15 gm 01/31/24 01:50 Glucose Oral Gel 15 Gm Of Glucse In 37.5 Gm Tube PO PRN PRN Hypoglycemia Protocol Hydromorphone HCl 1 mg 02/02/24 08:07 02/03/24 07:51 Hydromorphone Hcl Inj (*Crx) 1 Mg/Ml Syr IV PUSH 1 mg Q2H PRN Administration Pain Rated 7-10 Hydromorphone HCl 0.5 mg 02/02/24 08:06 Hydromorphone Hcl Inj (*Crx) 1 Mg/Ml Syr IV PUSH Q2H PRN Pain Rated 4-6 Ceftriaxone Sodium 1 gm in 50 mls @ 100 mls/hr 02/01/24 03:00 02/03/24 02:50 Rocephin 1 Gm/Ns 50 Ml IVPB Infused Q24H JENY Infusion Dextrose 1,000 mls @ 100 mls/hr 01/31/24 01:50 Dextrose 5% 1,000 Ml IVPB PRN PRN Hypoglycemia Protocol Metronidazole 500 mg in 100 mls @ 100 mls/hr 02/01/24 15:35 02/03/24 06:29 Flagyl 500 Mg/Iso Soln 100 Ml IVPB Infused Q8HR JENY Infusion Dextrose/Lactated Ringer's 1,000 mls @ 50 mls/hr 02/02/24 16:15 02/03/24 09:36 Dextrose 5%/Lactated Ringers IV CONT 50 mls/hr .Q20H JENY Infusion Potassium Chloride 100 mls @ 50 mls/hr 02/03/24 13:00 Kcl 20 Meq/Sw 100 Ml IVPB 02/03/24 14:59 ONCE ONE Ondansetron HCl 4 mg 01/31/24 01:37 Ondansetron Inj 4 Mg/2 Ml Vial IV PUSH Q4H PRN Nausea Sodium Chloride 10 ml 02/03/24 22:00 Saline Lock Flush IV PUSH Q8HR JENY Sodium Chloride 10 ml 02/03/24 14:06 Saline Lock Flush IV PUSH PRN PRN Flush Sodium Chloride 20 ml 02/03/24 14:06 Saline Lock Flush IV PUSH PRN PRN after blood draws Thiamine HCl 100 mg 02/01/24 09:00 02/03/24 07:51 Thiamine Hcl 200 Mg/2 Ml Vial IV PUSH 100 mg QAM JENY Administration Radiology Results: ITS Impressions Abdomen/Pelvis CT 01/30/24 23:48 IMPRESSION: 1. Likely choledocholithiasis with secondary biliary obstruction and suspicion for developing acute cholecystitis. Correlate with liver function tests and for Devine sign. Could consider further evaluation with MRCP, right upper quadrant ultrasound or HIDA scan depending upon clinical suspicion and specific question to be addressed. 2. Acute to subacute L1 and L3 compression fractures which are new since 3 months prior. MRCP 01/31/24 09:59 IMPRESSION: 1. Choledocholithiasis with intrahepatic and extrahepatic biliary duct dilatation and gallbladder distention. Labs Labs: Laboratory Results - last 24 hr 02/02/24 02/03/24 02/03/24 14:04 05:56 05:58 WBC 6.5 7.8 RBC 3.52 L 3.28 L Hgb 11.3 L 10.4 L Hct 33.6 L 31.0 L MCV 95.5 94.5 MCH 32.1 31.7 MCHC 33.6 33.5 RDW 14.1 14.2 Plt Count 117 L 120 L MPV 11.7 H 12.2 H Immature Gran % (Auto) 0.3 Neut % (Auto) 80.5 H Lymph % (Auto) 9.8 L [place] % (Auto) 8.4 Eos % (Auto) 0.5 Baso % (Auto) 0.5 Lymph # (Auto) 0.64 L [place] # (Auto) 0.6 Eos # (Auto) 0.0 Baso # (Auto) 0.0 Abs Immat Gran (auto) 0.02 Absolute Neuts (auto) 5.2 Absolute Nucleated RBC 0.000 Nucleated RBC % 0.0 % Immature Plt Fraction 9.0 Sodium 140 137 Potassium 3.2 L 2.8 L* Chloride 102 101 Carbon Dioxide 29 27 Anion Gap 9 9 BUN 8 4 L Creatinine 0.50 L 0.50 L Estim Creat Clear Calc 93 93 Estimated GFR > 60 > 60 Glucose 99 109 Calcium 9.1 8.5 Magnesium 0.9 L Total Bilirubin 6.9 H 3.0 H AST 54 H 33 ALT 39 H 30 Alkaline Phosphatase 165 H 138 H C-Reactive Protein 3.7 H 7.5 H Total Protein 7.0 6.0 L Albumin 3.4 L 2.9 L Lipase 68
[2024-02-03] MEDS: KCL 20 MEQ/SW 100 ML 100 ML 25 MEQ IVPB (14:27)
--- NOTE | 2024-02-03 18:39 | PC.NURSE ---
On 02/03/24, the PARTS CATALOGUER, Enriqueta Manzo, provided care and [facility]. I have reviewed the PARTS CATALOGUER's documentation and agree with the findings.
[2024-02-03 19:55] VITALS: BP 131/77; PULSE 76; RESP 18; TEMP 37.5; O2SAT 100
[2024-02-04] MEDS: HYDROmorphone HCL INJ (*CRX) 1 MG/ML SYR IV PUSH ×4 (01:11→16:44)
[2024-02-04 04:55] VITALS: BP 132/81; PULSE 61; RESP 16; TEMP 37; O2SAT 96
[2024-02-04 05:43] LABS: Hematocrit 30.7 % (37.0-47.0); Hemoglobin 10.2 g/dL (12.0-15.0); Immature Platelet Fraction Pct 9.5 % (0.9-11.2); Mean Corpuscular HGB Conc 33.2 g/dl (32-36); Mean Corpuscular Volume 96.2 fl (80-100); Mean Platelet Volume 11.9 fl (7.4-10.4); Platelet Count Result 120 k/mm3 (150-375); Red Blood Count 3.19 M/mm3 (4.2-5.4); Red Cell Distribution Width 14.1 % (11.5-14.5); White Blood Count 7.1 K/mm3 (4.5-10.0)
[2024-02-04 05:54] LABS: Anion Gap 5 mmol/L (4-12); Blood Urea Nitrogen 3 mg/dL (7-17); Calcium 8.5 mg/dL (8.4-10.2); Carbon Dioxide 29 mmol/L (22-30); Chloride 100 mmol/L (98-107); Estimated CRCL calculation 79 ml/min; Estimated Glomerular Filt Rate > 60; Glucose 99 mg/dL (65-110); Magnesium 1.3 mg/dL (1.6-2.3); Potassium 3.3 mmol/L (3.4-5.0); Sodium 134 mmol/L (137-145)
[2024-02-04] MEDS: SALINE LOCK FLUSH 10 ML IV PUSH ×2 (06:11→13:59)
[2024-02-04] MEDS: metroNIDAZOLE 500 MG/ISO 100ML 500 MG/100 ML BAG 100 MG IVPB ×3 (06:11→21:00)
[2024-02-04] MEDS: KCL 20 MEQ/SW 100 ML 100 ML 50 MEQ IVPB (09:16)
[2024-02-04] MEDS: MAGNESIUM SULF 1 GM/D5W 100 ML 1 GM/100 ML BAG IVPB (09:17)
[2024-02-04] MEDS: THIAMINE HCL 200 MG/2 ML VIAL 100 MG IV PUSH (09:23)
[2024-02-04] MEDS: DEXTROSE 5%/LACTATED RINGERS 1,000 ML 50 ML IV CONT (09:30)
--- NOTE | 2024-02-04 09:42 | PM.IMPN ---
Progress Note: A&P Assessment and Plan (1) Acute cholecystitis: Code(s): K81.0 - Acute cholecystitis Status: Acute Assessment and Plan: admit to regular medical floor started on Rocephin and Flagyl GI consult General surgery consult - clear liquid now- npo at midnight-ercp in am 01/31 - surgery on board- recommendations- She will need ERCP after which have recommended laparoscopic cholecystectomy. pt wants to wait after ERCp and decide on surgery after. 02/02- surgery planning on proceeding with Lap crystal sometime soon-very likely tomorrow she is on full liquids now-tolerates it well (2) Choledocholithiasis: Code(s): K80.50 - Calculus of bile duct without cholangitis or cholecystitis without obstruction Status: Acute Assessment and Plan: GI consult General surgery consult - see above (3) Alcohol abuse: Code(s): F10.10 - Alcohol abuse, uncomplicated Status: Acute Assessment and Plan: CIWA as needed alcohol cessation counselling completed (4) GERD (gastroesophageal reflux disease): Qualifiers: Esophagitis bleeding: without hemorrhage Esophagitis presence: with esophagitis Qualified Code(s): K21.00 - Gastro-esophageal reflux disease with esophagitis, without bleeding Code(s): K21.9 - Gastro-esophageal reflux disease without esophagitis Status: Acute Assessment and Plan: PPI (5) UTI (urinary tract infection): Code(s): N39.0 - Urinary tract infection, site not specified Status: Acute Assessment and Plan: - final culture is negative (6) Pancreatitis, acute: Qualifiers: Acute pancreatitis complication: uninfected necrosis Pancreatitis type: unspecified pancreatitis type Qualified Code(s): K85.91 - Acute pancreatitis with uninfected necrosis, unspecified Code(s): K85.90 - Acute pancreatitis without necrosis or infection, unspecified Status: Acute Assessment and Plan: - surgery is following - s/s of pancreatitis - Liver enzymes remains elevated -Will have to delay surgery until pancreatitis has improved - NPO, IV fluids, pain control. -surgery planning on proceeding with lap crystal- since still RUQ pain-possibly today/monday (7) Status post endoscopic retrograde cholangiopancreatography: Code(s): Z98.890 - Other specified postprocedural states Status: Acute Assessment and Plan: GI is following, notes reviewed: The patient's worsening pain might represent post ERCP pancreatitis. We'll increase LR fluid rate to the recommended 3 ml/kg/hr for the next 8 hours (180 ml per hour), then keep maintenance of 150 ml/hour for the rest of the day. Keep analgesics. Will check CMP in the morning and add amylase, lipase and CRP. (8) Electrolyte abnormality: Code(s): E87.8 - Other disorders of electrolyte and fluid balance, not elsewhere classified Status: Acute Assessment and Plan: -hypokalemia, hypomagnesimia - IV K was ordered over night, will order one more dose and IV mg- repeat electrolytes 1h after infusion is completed - trend labs daily - she is on full liquid diet today- tolerating well so far Plan # h/o CVA 1 year ago, TIA 3 months ago Time Spent With Patient Time with patient: Greater than 35 minutes Subjective Date/time seen: 02/04/24 09:42 Interval history: Full liquid today- tolerates it well, some abd discomfort, some nausea but no vomiting. K,Mg low- replaced IV. Surgery saw her yesterday- plant to proceed with Lap crystal soon- possibly monday Review of Systems Review of Systems: generalized tenderness to abd Gastrointestinal: Gastrointestinal: Reports abdominal pain and Reports nausea Musculoskeletal: Musculoskeletal: Denies back pain Psychiatric: Psychiatric: Reports anxiety Exam Narrative: appears comfortable Const: General: comfortable, no acute distress, well developed, alert and awake Nutritional Appearance: average body habitus Orientation/consciousness: patient oriented x3 Other: looks older than stated age HENMT: Head: normal to inspection Face/Nose/Sinus: normal facial exam Face and sinus: normal facial exam Eyes: General: appearance normal, both eyes and all related structures Pupils: Equal, round and reactive pupils present EOM: EOMs intact bilaterally Neck: Neck: full ROM, no lymphadenopathy and no JVD Resp: Effort & Inspection: normal respiratory effort and able to speak in complete sentences Auscultation: clear to auscultation bilaterally Cardio: Jugular venous distension: no JVD Rate: regular rate Rhythm: regular rhythm Heart sounds: S1 normal heart sound present and S2 normal heart sound present : General: Yes deferred Skin: Rashes: no rashes Wounds: no wounds Neuro: General: patient oriented x3 and CN's II-XI intact bilaterally Cranial nerves: Yes CN's II-XII intact bilaterally and Yes Equal, round and reactive pupils present Cognition (Neuro): normal cognition Speech: normal speech Gait exam (Neuro): Normal gait present Motor exam (neuro): 5/5 motor strength present throughout Extrem: General: normal to inspection, full ROM, no joint enlargement and no pedal edema Objective Data Vital Signs Vital Signs: Vital Signs - 24 hr 02/03/24 14:00 02/03/24 19:55 02/03/24 20:00 Temperature 98.9 F 99.5 F Pulse Rate 80 76 Respiratory Rate 16 18 Blood Pressure 141/83 H 131/77 Pulse Oximetry 97 100 Oxygen Delivery Room Air 02/04/24 04:55 Temperature 98.6 F Pulse Rate 61 Respiratory Rate 16 Blood Pressure 132/81 Pulse Oximetry 96 Oxygen Delivery Intake/Output Intake/Output: Intake & Output 02/01/24 02/02/24 02/03/24 02/04/24 23:59 23:59 23:59 23:59 Intake Total 2678.0 2790 3360.0 700 Output Total 300 1050 600 Balance 2378.0 1740 2760.0 700 Meds/Results Medications: Active Medications Generic Name Dose Route Start Last Admin Trade Name Freq PRN Reason Stop Dose Admin Dextrose 12.5 gm 01/31/24 01:50 Dextrose 50% 25 Gm/50 Ml Syringe IV PUSH PRN PRN Hypoglycemia Protocol Glucagon 1 mg 01/31/24 01:50 Glucagon For Inj 1 Mg Vial IM PRN PRN Hypoglycemia Protocol Glucose 15 gm 01/31/24 01:50 Glucose Oral Gel 15 Gm Of Glucse In 37.5 Gm Tube PO PRN PRN Hypoglycemia Protocol Hydromorphone HCl 1 mg 02/02/24 08:07 02/04/24 09:24 Hydromorphone Hcl Inj (*Crx) 1 Mg/Ml Syr IV PUSH 1 mg Q2H PRN Administration Pain Rated 7-10 Hydromorphone HCl 0.5 mg 02/02/24 08:06 Hydromorphone Hcl Inj (*Crx) 1 Mg/Ml Syr IV PUSH Q2H PRN Pain Rated 4-6 Ceftriaxone Sodium 1 gm in 50 mls @ 100 mls/hr 02/01/24 03:00 02/04/24 03:30 Rocephin 1 Gm/Ns 50 Ml IVPB Infused Q24H JENY Infusion Dextrose 1,000 mls @ 100 mls/hr 01/31/24 01:50 Dextrose 5% 1,000 Ml IVPB PRN PRN Hypoglycemia Protocol Metronidazole 500 mg in 100 mls @ 100 mls/hr 02/01/24 15:35 02/04/24 06:53 Flagyl 500 Mg/Iso Soln 100 Ml IVPB Infused Q8HR JENY Infusion Dextrose/Lactated Ringer's 1,000 mls @ 50 mls/hr 02/02/24 16:15 02/04/24 09:30 Dextrose 5%/Lactated Ringers IV CONT 50 mls/hr .Q20H JENY Administration Ondansetron HCl 4 mg 01/31/24 01:37 Ondansetron Inj 4 Mg/2 Ml Vial IV PUSH Q4H PRN Nausea Sodium Chloride 10 ml 02/03/24 22:00 02/04/24 06:11 Saline Lock Flush IV PUSH 10 ml Q8HR JENY Administration Sodium Chloride 10 ml 02/03/24 14:06 Saline Lock Flush IV PUSH PRN PRN Flush Sodium Chloride 20 ml 02/03/24 14:06 Saline Lock Flush IV PUSH PRN PRN after blood draws Thiamine HCl 100 mg 02/01/24 09:00 02/04/24 09:23 Thiamine Hcl 200 Mg/2 Ml Vial IV PUSH 100 mg QAM JENY Administration Radiology Results: ITS Impressions Abdomen/Pelvis CT 01/30/24 23:48 IMPRESSION: 1. Likely choledocholithiasis with secondary biliary obstruction and suspicion for developing acute cholecystitis. Correlate with liver function tests and for Devine sign. Could consider further evaluation with MRCP, right upper quadrant ultrasound or HIDA scan depending upon clinical suspicion and specific question to be addressed. 2. Acute to subacute L1 and L3 compression fractures which are new since 3 months prior. MRCP 01/31/24 09:59 IMPRESSION: 1. Choledocholithiasis with intrahepatic and extrahepatic biliary duct dilatation and gallbladder distention. Labs Labs: Laboratory Results - last 24 hr 02/04/24 05:34 WBC 7.1 RBC 3.19 L Hgb 10.2 L Hct 30.7 L MCV 96.2 MCH 32.0 MCHC 33.2 RDW 14.1 Plt Count 120 L MPV 11.9 H % Immature Plt Fraction 9.5 Sodium 134 L Potassium 3.3 L Chloride 100 Carbon Dioxide 29 Anion Gap 5 BUN 3 L Creatinine 0.60 L Estim Creat Clear Calc 79 Estimated GFR > 60 Glucose 99 Calcium 8.5 Magnesium 1.3 L Quality VTE Prophylaxis VTE prophylaxis: mechanical ordered
--- NOTE | 2024-02-04 10:42 | WPDGIPROGNO ---
Progress Note: A&P Assessment and Plan (1) Acute cholecystitis: Code(s): K81.0 - Acute cholecystitis Status: Acute Assessment and Plan: Patient with acute cholecystitis, recovering from a post ERCP pancreatitis. She is probably stable enough to undergo laparoscopic cholecystectomy in the next few days. Surgery to follow and decide upon best timing. (2) Status post endoscopic retrograde cholangiopancreatography: Code(s): Z98.890 - Other specified postprocedural states Status: Acute Subjective Date/time seen: 02/04/24 10:42 Interval history: The patient still feels right upper quadrant pain especially when she changes positions. Overall she is doing better, tolerating food very well. Afebrile and with good urinary output. Exam Const: General: cooperative and healthy appearing Resp: Effort & Inspection: normal respiratory effort and able to speak in complete sentences Auscultation: clear to auscultation bilaterally Cardio: Rate: regular rate Rhythm: regular rhythm GI: Inspection: normal to inspection GI Palp: Yes Tenderness to palpation present (GI) and Yes Guarding due to palpation present (GI) Auscultation: normal bowel sounds Rectal Exam: deferred Other: Positive Devine sign Skin: General skin exam: normal color Psych: Appearance: grossly normal Mental Status: mental status grossly normal Objective Data Vital Signs Vital Signs: Vital Signs - 24 hr 02/03/24 14:00 02/03/24 19:55 02/03/24 20:00 Temperature 98.9 F 99.5 F Pulse Rate 80 76 Respiratory Rate 16 18 Blood Pressure 141/83 H 131/77 Pulse Oximetry 97 100 Oxygen Delivery Room Air 02/04/24 04:55 Temperature 98.6 F Pulse Rate 61 Respiratory Rate 16 Blood Pressure 132/81 Pulse Oximetry 96 Oxygen Delivery Intake/Output Intake/Output: Intake & Output 02/01/24 02/02/24 02/03/24 02/04/24 23:59 23:59 23:59 23:59 Intake Total 2678.0 2790 3360.0 940 Output Total 300 1050 600 Balance 2378.0 1740 2760.0 940 Meds/Results Medications: Active Medications Generic Name Dose Route Start Last Admin Trade Name Freq PRN Reason Stop Dose Admin Dextrose 12.5 gm 01/31/24 01:50 Dextrose 50% 25 Gm/50 Ml Syringe IV PUSH PRN PRN Hypoglycemia Protocol Glucagon 1 mg 01/31/24 01:50 Glucagon For Inj 1 Mg Vial IM PRN PRN Hypoglycemia Protocol Glucose 15 gm 01/31/24 01:50 Glucose Oral Gel 15 Gm Of Glucse In 37.5 Gm Tube PO PRN PRN Hypoglycemia Protocol Hydromorphone HCl 1 mg 02/02/24 08:07 02/04/24 09:24 Hydromorphone Hcl Inj (*Crx) 1 Mg/Ml Syr IV PUSH 1 mg Q2H PRN Administration Pain Rated 7-10 Hydromorphone HCl 0.5 mg 02/02/24 08:06 Hydromorphone Hcl Inj (*Crx) 1 Mg/Ml Syr IV PUSH Q2H PRN Pain Rated 4-6 Ceftriaxone Sodium 1 gm in 50 mls @ 100 mls/hr 02/01/24 03:00 02/04/24 03:30 Rocephin 1 Gm/Ns 50 Ml IVPB Infused Q24H JENY Infusion Dextrose 1,000 mls @ 100 mls/hr 01/31/24 01:50 Dextrose 5% 1,000 Ml IVPB PRN PRN Hypoglycemia Protocol Metronidazole 500 mg in 100 mls @ 100 mls/hr 02/01/24 15:35 02/04/24 06:53 Flagyl 500 Mg/Iso Soln 100 Ml IVPB Infused Q8HR JENY Infusion Dextrose/Lactated Ringer's 1,000 mls @ 50 mls/hr 02/02/24 16:15 02/04/24 09:30 Dextrose 5%/Lactated Ringers IV CONT 50 mls/hr .Q20H JENY Administration Ondansetron HCl 4 mg 01/31/24 01:37 Ondansetron Inj 4 Mg/2 Ml Vial IV PUSH Q4H PRN Nausea Sodium Chloride 10 ml 02/03/24 22:00 02/04/24 06:11 Saline Lock Flush IV PUSH 10 ml Q8HR JENY Administration Sodium Chloride 10 ml 02/03/24 14:06 Saline Lock Flush IV PUSH PRN PRN Flush Sodium Chloride 20 ml 02/03/24 14:06 Saline Lock Flush IV PUSH PRN PRN after blood draws Thiamine HCl 100 mg 02/01/24 09:00 02/04/24 09:23 Thiamine Hcl 200 Mg/2 Ml Vial IV PUSH 100 mg QAM JENY Administration Radiology Results: ITS Impressions Abdomen/Pelvis CT 01/30/24 23:48 IMPRESSION: 1. Likely choledocholithiasis with secondary biliary obstruction and suspicion for developing acute cholecystitis. Correlate with liver function tests and for Devine sign. Could consider further evaluation with MRCP, right upper quadrant ultrasound or HIDA scan depending upon clinical suspicion and specific question to be addressed. 2. Acute to subacute L1 and L3 compression fractures which are new since 3 months prior. MRCP 01/31/24 09:59 IMPRESSION: 1. Choledocholithiasis with intrahepatic and extrahepatic biliary duct dilatation and gallbladder distention. Labs Labs: Laboratory Results - last 24 hr 02/04/24 05:34 WBC 7.1 RBC 3.19 L Hgb 10.2 L Hct 30.7 L MCV 96.2 MCH 32.0 MCHC 33.2 RDW 14.1 Plt Count 120 L MPV 11.9 H % Immature Plt Fraction 9.5 Sodium 134 L Potassium 3.3 L Chloride 100 Carbon Dioxide 29 Anion Gap 5 BUN 3 L Creatinine 0.60 L Estim Creat Clear Calc 79 Estimated GFR > 60 Glucose 99 Calcium 8.5 Magnesium 1.3 L
[2024-02-04 13:33] VITALS: BP 137/87; PULSE 78; RESP 18; TEMP 36.6; O2SAT 97
--- NOTE | 2024-02-04 13:49 | P.PNGS_ITS ---
Progress Note: A&P Assessment and Plan (1) Acute cholecystitis: Code(s): K81.0 - Acute cholecystitis Status: Acute Assessment and Plan: * Will plan for laparoscopic cholecystectomy, possible open tomorrow. NPO after midnight. Repeat labs in AM. I discussed the procedure, risks, benefits, and alternatives. Questions answered. Subjective Subjective Date/Time Seen: 02/04/24 13:49 Interval history: Still having RUQ pain. No fevers. Tolerating full liquids. Bowels moving. Exam GI: Inspection: non-distended GI Palp: Yes Tenderness to palpation present (GI) (RUQ) Objective Data Vital Signs Vital Signs: Vital Signs - 24 hr 02/03/24 14:00 02/03/24 19:55 02/03/24 20:00 Temperature 98.9 F 99.5 F Pulse Rate 80 76 Respiratory Rate 16 18 Blood Pressure 141/83 H 131/77 Pulse Oximetry 97 100 Oxygen Delivery Room Air 02/04/24 04:55 02/04/24 09:15 02/04/24 13:33 Temperature 98.6 F 97.8 F Pulse Rate 61 78 Respiratory Rate 16 18 Blood Pressure 132/81 137/87 Pulse Oximetry 96 97 Oxygen Delivery Room Air Intake/Output Intake/Output: Intake & Output 02/01/24 02/02/24 02/03/24 02/04/24 23:59 23:59 23:59 23:59 Intake Total 2678.0 2790 3360.0 1180 Output Total 300 1050 600 Balance 2378.0 1740 2760.0 1180 Meds/Results Medications: Active Medications Generic Name Dose Route Start Last Admin Trade Name Freq PRN Reason Stop Dose Admin Dextrose 12.5 gm 01/31/24 01:50 Dextrose 50% 25 Gm/50 Ml Syringe IV PUSH PRN PRN Hypoglycemia Protocol Glucagon 1 mg 01/31/24 01:50 Glucagon For Inj 1 Mg Vial IM PRN PRN Hypoglycemia Protocol Glucose 15 gm 01/31/24 01:50 Glucose Oral Gel 15 Gm Of Glucse In 37.5 Gm Tube PO PRN PRN Hypoglycemia Protocol Hydromorphone HCl 1 mg 02/02/24 08:07 02/04/24 13:06 Hydromorphone Hcl Inj (*Crx) 1 Mg/Ml Syr IV PUSH 1 mg Q2H PRN Administration Pain Rated 7-10 Hydromorphone HCl 0.5 mg 02/02/24 08:06 Hydromorphone Hcl Inj (*Crx) 1 Mg/Ml Syr IV PUSH Q2H PRN Pain Rated 4-6 Ceftriaxone Sodium 1 gm in 50 mls @ 100 mls/hr 02/01/24 03:00 02/04/24 03:30 Rocephin 1 Gm/Ns 50 Ml IVPB Infused Q24H JENY Infusion Dextrose 1,000 mls @ 100 mls/hr 01/31/24 01:50 Dextrose 5% 1,000 Ml IVPB PRN PRN Hypoglycemia Protocol Metronidazole 500 mg in 100 mls @ 100 mls/hr 02/01/24 15:35 02/04/24 06:53 Flagyl 500 Mg/Iso Soln 100 Ml IVPB Infused Q8HR JENY Infusion Dextrose/Lactated Ringer's 1,000 mls @ 50 mls/hr 02/02/24 16:15 02/04/24 09:30 Dextrose 5%/Lactated Ringers IV CONT 50 mls/hr .Q20H JENY Administration Ondansetron HCl 4 mg 01/31/24 01:37 Ondansetron Inj 4 Mg/2 Ml Vial IV PUSH Q4H PRN Nausea Sodium Chloride 10 ml 02/03/24 22:00 02/04/24 06:11 Saline Lock Flush IV PUSH 10 ml Q8HR JENY Administration Sodium Chloride 10 ml 02/03/24 14:06 Saline Lock Flush IV PUSH PRN PRN Flush Sodium Chloride 20 ml 02/03/24 14:06 Saline Lock Flush IV PUSH PRN PRN after blood draws Thiamine HCl 100 mg 02/01/24 09:00 02/04/24 09:23 Thiamine Hcl 200 Mg/2 Ml Vial IV PUSH 100 mg QAM JENY Administration Radiology Results: ITS Impressions Abdomen/Pelvis CT 01/30/24 23:48 IMPRESSION: 1. Likely choledocholithiasis with secondary biliary obstruction and suspicion for developing acute cholecystitis. Correlate with liver function tests and for Devine sign. Could consider further evaluation with MRCP, right upper quadrant ultrasound or HIDA scan depending upon clinical suspicion and specific question to be addressed. 2. Acute to subacute L1 and L3 compression fractures which are new since 3 months prior. MRCP 01/31/24 09:59 IMPRESSION: 1. Choledocholithiasis with intrahepatic and extrahepatic biliary duct dilatation and gallbladder distention. Labs Labs: Laboratory Results - last 24 hr 02/04/24 05:34 WBC 7.1 RBC 3.19 L Hgb 10.2 L Hct 30.7 L MCV 96.2 MCH 32.0 MCHC 33.2 RDW 14.1 Plt Count 120 L MPV 11.9 H % Immature Plt Fraction 9.5 Sodium 134 L Potassium 3.3 L Chloride 100 Carbon Dioxide 29 Anion Gap 5 BUN 3 L Creatinine 0.60 L Estim Creat Clear Calc 79 Estimated GFR > 60 Glucose 99 Calcium 8.5 Magnesium 1.3 L
--- NOTE | 2024-02-04 15:22 | WPDANESEPP ---
Anes - Eval Pre Procedure Procedure: Laparoscopic cholecystectomy Date/Time: 02/04/24 15:22 Surgeon: Odette Preop Diagnosis: Acute cholecystitis Pre Op Diagnosis: Abd pain, RLQ Patient Data Age: 58 Gender: F Height: 1.68 m Weight: 58 kg Last Vital Signs Temp 36.6 C 02/04/24 13:33 Pulse 78 02/04/24 13:33 Resp 18 02/04/24 13:33 BP 137/87 02/04/24 13:33 Pulse Ox 97 02/04/24 13:33 O2 Del Method Room Air 02/04/24 09:15 Allergies Allergy/AdvReac Type Severity Reaction Status Date / Time Penicillins Allergy Severe HIVES Verified 02/01/24 11:43 Sulfa (Sulfonamide AdvReac Severe HIVES Verified 02/01/24 11:43 Antibiotics) Home Medications Medication Instructions Recorded Confirmed Type atorvastatin 80 mg tablet 80 mg PO DAILY 10/30/23 01/31/24 History clobetasol 0.05 % topical ointment 1 applic topical TID psoriasis 10/30/23 01/31/24 History folic acid 1 mg tablet 1 mg PO DAILY 10/30/23 01/31/24 History losartan 100 mg tablet 100 mg PO DAILY 10/30/23 01/31/24 History aspirin 81 mg tablet 81 mg PO DAILY 10/31/23 01/31/24 History hydrocodone 5 mg-acetaminophen 325 1 tablet PO Q4H PRN Pain Rated 4-6 11/02/23 01/31/24 Rx mg tablet #12 tabs famotidine 20 mg tablet 20 mg PO DAILY 01/31/24 01/31/24 History halobetasol propionate 0.05 % 1 applic topical TID psoriasis 01/31/24 01/31/24 History topical ointment mupirocin 2 % topical ointment 1 applic topical TID psoriasis 01/31/24 01/31/24 History Laboratory Tests 02/04/24 05:34 WBC 7.1 K/mm3 (4.5-10.0) RBC 3.19 L M/mm3 (4.2-5.4) Hgb 10.2 L g/dL (12.0-15.0) Hct 30.7 L % (37.0-47.0) MCV 96.2 fl (80-100) MCH 32.0 pg (26-34) MCHC 33.2 g/dl (32-36) RDW 14.1 % (11.5-14.5) Plt Count 120 L k/mm3 (150-375) MPV 11.9 H fl (7.4-10.4) % Immature Plt Fraction 9.5 % (0.9-11.2) Sodium 134 L mmol/L (137-145) Potassium 3.3 L mmol/L (3.4-5.0) Chloride 100 mmol/L (98-107) Carbon Dioxide 29 mmol/L (22-30) Anion Gap 5 mmol/L (4-12) BUN 3 L mg/dL (7-17) Creatinine 0.60 L mg/dL (0.7-1.0) Estim Creat Clear Calc 79 ml/min Estimated GFR > 60 (59 - ) Glucose 99 mg/dL (65-110) Calcium 8.5 mg/dL (8.4-10.2) Magnesium 1.3 L mg/dL (1.6-2.3) Patient hx anesthesia problems: none Family hx anesthesia problems: none Results Review: All pre-operative results and documents have been reviewed as part of the pre-operative evaluation. [facility] Past Medical History Medical History Anxiety and depression CVA (cerebral vascular accident) (2022) Elevated liver enzymes Essential hypertension GERD (gastroesophageal reflux disease) With CT evidence of esophagitis and gastritis noted 10/10/2019 Gout History of substance abuse Hyperlipidemia Nausea and vomiting in adult Psoriasis RUQ pain Thyroid nodule TIA (transient ischemic attack) October 2023 Surgical History Surgical History History of History of endometrial ablation (2010) Family History Family History Sibling Colon cancer Hypertension Other No problems noted. Mother Hypertension Other Acute myocardial infarction Social History Social History Social History: The patient lives alone. She has 1 son but she is estranged from her son. She has 4 cats. She is a recovering alcoholic. She states that she has drink up to a pint of vodka a day. She used to use cocaine but has not done so in 20 years. She denies history of tobacco use. She does have heavy secondhand smoke exposure and her clothes in belongings smell of smoke. Code status: DNR/DNI per patient request. Nursing staff was at bedside and witnessed discussion of code status and plan of care with patient. Surrogate decision maker: Tory Strauss (friend) Smoking status: Never smoker Alcohol intake: current Drinks per week: 2 Alcohol use details: One pint of alcohol a day. Substance use: current Substance use type: marijuana Do You Feel Safe in your Home?: No Lack of Transportation: No Lack of Food: Never True Current Housing: I Do Not Have Housing Concerned About Future Housing: No Difficulty Paying Gas/Electric Bills: YES Difficulty Paying for Meds: YES Currently Unemployed: No Education: High School Diploma/GED Difficulty w/ Childcare or Family Care: No Spiritual care concerns: No Exam Day of Procedure 02/04/24 15:22
--- NOTE | 2024-02-04 17:38 | PC.NURSE ---
On 02/04/24, the COMMUNITY DEVELOPMENT OFFICER, Tomi Manzo, provided care and completed [employer] documentation on this patient. I have reviewed the COMMUNITY DEVELOPMENT OFFICER's documentation and agree with the findings.
[2024-02-04 20:27] VITALS: BP 152/76; PULSE 55; RESP 16; TEMP 36.7; O2SAT 97
[2024-02-04] MEDS: HYDROmorphone HCL INJ (*CRX) 1 MG/ML SYR 0.5 MG IV PUSH (21:02)
[2024-02-04] MEDS: ONDANSETRON INJ 4 MG/2 ML VIAL IV PUSH (21:02)
[2024-02-05] VITALS (13 sets, daily range): BP systolic 136–184; BP diastolic 77–102; PULSE 57–90; RESP 12–18; TEMP 36.4–36.9; O2SAT 90–100
[2024-02-05] MEDS: metroNIDAZOLE 500 MG/ISO 100ML 500 MG/100 ML BAG 100 MG IVPB ×3 (05:17→20:53)
[2024-02-05] MEDS: HYDROmorphone HCL INJ (*CRX) 1 MG/ML SYR 0.5 MG IV PUSH ×4 (05:18→17:54)
[2024-02-05 06:52] LABS: Hematocrit 30.7 % (37.0-47.0); Hemoglobin 10.4 g/dL (12.0-15.0); Immature Platelet Fraction Pct 8.2 % (0.9-11.2); Mean Corpuscular HGB Conc 33.9 g/dl (32-36); Mean Corpuscular Hemoglobin 32.4 pg (26-34); Mean Corpuscular Volume 95.6 fl (80-100); Mean Platelet Volume 11.4 fl (7.4-10.4); Platelet Count Result 131 k/mm3 (150-375); Red Blood Count 3.21 M/mm3 (4.2-5.4); White Blood Count 4.5 K/mm3 (4.5-10.0)
[2024-02-05 07:04] LABS: Alanine Aminotransferase 18 U/L (6-35); Albumin Level 3.1 g/dL (3.5-5.1); Alkaline Phosphatase 121 U/L (38-126); Anion Gap 8 mmol/L (4-12); Aspartate Amino Transferase 22 U/L (14-36); Bilirubin,Total 1.6 mg/dL (0.2-1.3); Blood Urea Nitrogen 3 mg/dL (7-17); Calcium 8.8 mg/dL (8.4-10.2); Carbon Dioxide 25 mmol/L (22-30); Chloride 102 mmol/L (98-107); Estimated CRCL calculation 79 ml/min; Estimated Glomerular Filt Rate > 60; Glucose 103 mg/dL (65-110); Magnesium 1.3 mg/dL (1.6-2.3); Potassium 3.4 mmol/L (3.4-5.0); Sodium 135 mmol/L (137-145)
[2024-02-05 07:05] LABS: INR 1.1; Prothrombin Time 14.2 Seconds (11.1-14.7)
--- NOTE | 2024-02-05 07:48 | PM.IMPN ---
Progress Note: A&P Assessment and Plan (1) Acute cholecystitis: Code(s): K81.0 - Acute cholecystitis Status: Acute Assessment and Plan: admit to regular medical floor started on Rocephin and Flagyl GI consult General surgery consult - clear liquid now- npo at midnight-ercp in am 01/31 - surgery on board- recommendations- She will need ERCP after which have recommended laparoscopic cholecystectomy. pt wants to wait after ERCp and decide on surgery after. 02/02- surgery planning on proceeding with Lap crystal sometime soon-very likely tomorrow she is on full liquids now-tolerates it well (2) Choledocholithiasis: Code(s): K80.50 - Calculus of bile duct without cholangitis or cholecystitis without obstruction Status: Acute Assessment and Plan: GI consult General surgery consult - see above (3) Alcohol abuse: Code(s): F10.10 - Alcohol abuse, uncomplicated Status: Acute Assessment and Plan: CIWA as needed alcohol cessation counselling completed (4) GERD (gastroesophageal reflux disease): Qualifiers: Esophagitis bleeding: without hemorrhage Esophagitis presence: with esophagitis Qualified Code(s): K21.00 - Gastro-esophageal reflux disease with esophagitis, without bleeding Code(s): K21.9 - Gastro-esophageal reflux disease without esophagitis Status: Acute Assessment and Plan: PPI (5) UTI (urinary tract infection): Code(s): N39.0 - Urinary tract infection, site not specified Status: Acute Assessment and Plan: - final culture is negative (6) Pancreatitis, acute: Qualifiers: Acute pancreatitis complication: uninfected necrosis Pancreatitis type: unspecified pancreatitis type Qualified Code(s): K85.91 - Acute pancreatitis with uninfected necrosis, unspecified Code(s): K85.90 - Acute pancreatitis without necrosis or infection, unspecified Status: Acute Assessment and Plan: - surgery is following - s/s of pancreatitis - Liver enzymes remains elevated 02/04- Laparoscopic cholecystectomy today (7) Status post endoscopic retrograde cholangiopancreatography: Code(s): Z98.890 - Other specified postprocedural states Status: Acute Assessment and Plan: GI is following, notes reviewed: The patient's worsening pain might represent post ERCP pancreatitis. We'll increase LR fluid rate to the recommended 3 ml/kg/hr for the next 8 hours (180 ml per hour), then keep maintenance of 150 ml/hour for the rest of the day. Keep analgesics. Will check CMP in the morning and add amylase, lipase and CRP. (8) Electrolyte abnormality: Code(s): E87.8 - Other disorders of electrolyte and fluid balance, not elsewhere classified Status: Acute Assessment and Plan: - hypokalemia, hypomagnesimia - IV K was ordered over night, will order one more dose and IV mg- repeat electrolytes 1h after infusion is completed - trend labs daily Plan # h/o CVA 1 year ago, TIA 3 months ago Time Spent With Patient Time with patient: Greater than 35 minutes Subjective Date/time seen: 02/05/24 07:48 Interval history: Doing well this am- Laparoscopic cholecystectomy today. Ready to get get it over with . Tenderness and pain but not worse that she had been experiencing Review of Systems Review of Systems: generalized tenderness to abd Gastrointestinal: Gastrointestinal: Reports abdominal pain and Reports nausea Musculoskeletal: Musculoskeletal: Denies back pain Psychiatric: Psychiatric: Reports anxiety Exam Narrative: appears comfortable Const: General: comfortable, no acute distress, well developed, alert, awake and average body habitus Nutritional Appearance: average body habitus Orientation/consciousness: patient oriented x3 Other: looks older than stated age HENMT: Head: normal to inspection, normocephalic and atraumatic Ears: hearing grossly normal bilaterally Face/Nose/Sinus: normal facial exam Face and sinus: normal facial exam Eyes: General: appearance normal, both eyes and all related structures Pupils: Equal, round and reactive pupils present EOM: EOMs intact bilaterally Neck: Neck: full ROM, no lymphadenopathy and no JVD Thyroid: thyroid normal Lymphatic: no lymphadenopathy noted Resp: Effort & Inspection: normal respiratory effort and able to speak in complete sentences Auscultation: clear to auscultation bilaterally Cardio: Jugular venous distension: no JVD Rate: regular rate Rhythm: regular rhythm Heart sounds: S1 normal heart sound present and S2 normal heart sound present : General: Yes deferred Skin: Rashes: no rashes Wounds: no wounds Neuro: General: patient oriented x3 and CN's II-XI intact bilaterally Cranial nerves: Yes CN's II-XII intact bilaterally and Yes Equal, round and reactive pupils present Cognition (Neuro): normal cognition Speech: normal speech Gait exam (Neuro): Normal gait present Motor exam (neuro): 5/5 motor strength present throughout Extrem: General: normal to inspection, full ROM, no joint enlargement and no pedal edema Objective Data Vital Signs Vital Signs: Vital Signs - 24 hr 02/04/24 09:15 02/04/24 13:33 02/04/24 20:27 Temperature 97.8 F 98.0 F Pulse Rate 78 55 L Respiratory Rate 18 16 Blood Pressure 137/87 152/76 H Pulse Oximetry 97 97 Oxygen Delivery Room Air 02/04/24 20:00 02/05/24 05:19 Temperature 98.0 F Pulse Rate 58 L Respiratory Rate 18 Blood Pressure 149/87 H Pulse Oximetry 98 Oxygen Delivery Room Air Intake/Output Intake/Output: Intake & Output 02/02/24 02/03/24 02/04/24 02/05/24 23:59 23:59 23:59 23:59 Intake Total 2790 3360.0 2095 484.1 Output Total 1050 600 Balance 1740 2760.0 2095 484.1 Meds/Results Medications: Active Medications Generic Name Dose Route Start Last Admin Trade Name Freq PRN Reason Stop Dose Admin Dextrose 12.5 gm 01/31/24 01:50 Dextrose 50% 25 Gm/50 Ml Syringe IV PUSH PRN PRN Hypoglycemia Protocol Glucagon 1 mg 01/31/24 01:50 Glucagon For Inj 1 Mg Vial IM PRN PRN Hypoglycemia Protocol Glucose 15 gm 01/31/24 01:50 Glucose Oral Gel 15 Gm Of Glucse In 37.5 Gm Tube PO PRN PRN Hypoglycemia Protocol Hydromorphone HCl 1 mg 02/02/24 08:07 02/04/24 16:44 Hydromorphone Hcl Inj (*Crx) 1 Mg/Ml Syr IV PUSH 1 mg Q2H PRN Administration Pain Rated 7-10 Hydromorphone HCl 0.5 mg 02/02/24 08:06 02/05/24 05:18 Hydromorphone Hcl Inj (*Crx) 1 Mg/Ml Syr IV PUSH 0.5 mg Q2H PRN Administration Pain Rated 4-6 Ceftriaxone Sodium 1 gm in 50 mls @ 100 mls/hr 02/01/24 03:00 02/05/24 03:01 Rocephin 1 Gm/Ns 50 Ml IVPB Infused Q24H JENY Infusion Dextrose 1,000 mls @ 100 mls/hr 01/31/24 01:50 Dextrose 5% 1,000 Ml IVPB PRN PRN Hypoglycemia Protocol Metronidazole 500 mg in 100 mls @ 100 mls/hr 02/01/24 15:35 02/05/24 06:24 Flagyl 500 Mg/Iso Soln 100 Ml IVPB Infused Q8HR JENY Infusion Dextrose/Lactated Ringer's 1,000 mls @ 50 mls/hr 02/02/24 16:15 02/05/24 06:24 Dextrose 5%/Lactated Ringers IV CONT 50 mls/hr .Q20H JENY Infusion Magnesium Sulfate 2 gm in 50 mls @ 25 mls/hr 02/05/24 07:45 Magnesium Sulf 2 Gm/Water 50ml IVPB 02/05/24 09:44 ONCE ONE Ondansetron HCl 4 mg 01/31/24 01:37 02/04/24 21:02 Ondansetron Inj 4 Mg/2 Ml Vial IV PUSH 4 mg Q4H PRN Administration Nausea Sodium Chloride 10 ml 02/03/24 22:00 02/05/24 04:14 Saline Lock Flush IV PUSH Not Given Q8HR JENY Sodium Chloride 10 ml 02/03/24 14:06 Saline Lock Flush IV PUSH PRN PRN Flush Sodium Chloride 20 ml 02/03/24 14:06 Saline Lock Flush IV PUSH PRN PRN after blood draws Thiamine HCl 100 mg 02/01/24 09:00 02/04/24 09:23 Thiamine Hcl 200 Mg/2 Ml Vial IV PUSH 100 mg QAM JENY Administration Radiology Results: ITS Impressions Abdomen/Pelvis CT 01/30/24 23:48 IMPRESSION: 1. Likely choledocholithiasis with secondary biliary obstruction and suspicion for developing acute cholecystitis. Correlate with liver function tests and for Devine sign. Could consider further evaluation with MRCP, right upper quadrant ultrasound or HIDA scan depending upon clinical suspicion and specific question to be addressed. 2. Acute to subacute L1 and L3 compression fractures which are new since 3 months prior. MRCP 01/31/24 09:59 IMPRESSION: 1. Choledocholithiasis with intrahepatic and extrahepatic biliary duct dilatation and gallbladder distention. Labs Labs: Laboratory Results - last 24 hr 02/05/24 06:39 WBC 4.5 RBC 3.21 L Hgb 10.4 L Hct 30.7 L MCV 95.6 MCH 32.4 MCHC 33.9 RDW 14.0 Plt Count 131 L MPV 11.4 H % Immature Plt Fraction 8.2 PT 14.2 INR 1.1 Sodium 135 L Potassium 3.4 Chloride 102 Carbon Dioxide 25 Anion Gap 8 BUN 3 L Creatinine 0.60 L Estim Creat Clear Calc 79 Estimated GFR > 60 Glucose 103 Calcium 8.8 Magnesium 1.3 L Total Bilirubin 1.6 H Direct Bilirubin 0.0 AST 22 ALT 18 Alkaline Phosphatase 121 Total Protein 6.0 L Albumin 3.1 L Quality VTE Prophylaxis VTE prophylaxis: mechanical ordered
[2024-02-05] MEDS: MAGNESIUM SULF 2 GM/WATER 50ML 2 GM/50 ML BAG IVPB (08:35)
[2024-02-05] MEDS: THIAMINE HCL 200 MG/2 ML VIAL 100 MG IV PUSH (08:35)
[2024-02-05] MEDS: SALINE LOCK FLUSH 10 ML IV PUSH ×2 (13:38→20:54)
--- NOTE | 2024-02-05 15:15 | WPDHPUPDATE1 ---
History and Physical Update Update Date/Time: 02/05/24 15:15 History and Physical has been reviewed, including an updated exam of the patient. There are NO changes in the patient's condition. Risks, benefits, and alternatives have been discussed and questions answered. Patient agrees to proceed with procedure.
--- NOTE | 2024-02-05 15:21 | P.PNAN_ITS ---
Anes - Initial Pre Proc Eval Procedure: Operation Date: 02/01/24 12:00 Proposed Procedures p Endoscopic Retro Cholangiopancreatogram - Darrell Díaz MD Operation Date: 02/05/24 15:30 Proposed Procedures p Laparoscopic Cholecystectomy - Nick Pino DO Date/Time: 02/05/24 15:21 Surgeon: Danii Wren MD Pre Op Diagnosis: Abd pain, RLQ Patient Data Age: 58 Gender: F Height: 1.68 m Weight: 58 kg Last Vital Signs Temp 36.9 C 02/05/24 14:26 Pulse 60 02/05/24 14:26 Resp 16 02/05/24 14:00 BP 180/86 H 02/05/24 14:26 Pulse Ox 99 02/05/24 14:26 O2 Del Method Room Air 02/05/24 14:26 Allergies Allergy/AdvReac Type Severity Reaction Status Date / Time Penicillins Allergy Severe HIVES Verified 02/05/24 09:24 Sulfa (Sulfonamide AdvReac Severe HIVES Verified 02/01/24 11:43 Antibiotics) Home Medications Medication Instructions Recorded Confirmed Type atorvastatin 80 mg tablet 80 mg PO DAILY 10/30/23 01/31/24 History clobetasol 0.05 % topical ointment 1 applic topical TID psoriasis 10/30/23 01/31/24 History folic acid 1 mg tablet 1 mg PO DAILY 10/30/23 01/31/24 History losartan 100 mg tablet 100 mg PO DAILY 10/30/23 01/31/24 History aspirin 81 mg tablet 81 mg PO DAILY 10/31/23 01/31/24 History hydrocodone 5 mg-acetaminophen 325 1 tablet PO Q4H PRN Pain Rated 4-6 11/02/23 01/31/24 Rx mg tablet #12 tabs famotidine 20 mg tablet 20 mg PO DAILY 01/31/24 01/31/24 History halobetasol propionate 0.05 % 1 applic topical TID psoriasis 01/31/24 01/31/24 History topical ointment mupirocin 2 % topical ointment 1 applic topical TID psoriasis 01/31/24 01/31/24 History Laboratory Tests 02/05/24 06:39 WBC 4.5 K/mm3 (4.5-10.0) RBC 3.21 L M/mm3 (4.2-5.4) Hgb 10.4 L g/dL (12.0-15.0) Hct 30.7 L % (37.0-47.0) MCV 95.6 fl (80-100) MCH 32.4 pg (26-34) MCHC 33.9 g/dl (32-36) RDW 14.0 % (11.5-14.5) Plt Count 131 L k/mm3 (150-375) MPV 11.4 H fl (7.4-10.4) % Immature Plt Fraction 8.2 % (0.9-11.2) PT 14.2 Seconds (11.1-14.7) INR 1.1 Sodium 135 L mmol/L (137-145) Potassium 3.4 mmol/L (3.4-5.0) Chloride 102 mmol/L (98-107) Carbon Dioxide 25 mmol/L (22-30) Anion Gap 8 mmol/L (4-12) BUN 3 L mg/dL (7-17) Creatinine 0.60 L mg/dL (0.7-1.0) Estim Creat Clear Calc 79 ml/min Estimated GFR > 60 (59 - ) Glucose 103 mg/dL (65-110) Calcium 8.8 mg/dL (8.4-10.2) Magnesium 1.3 L mg/dL (1.6-2.3) Total Bilirubin 1.6 H mg/dL (0.2-1.3) Direct Bilirubin 0.0 mg/dL (0-0.3) AST 22 U/L (14-36) ALT 18 U/L (6-35) Alkaline Phosphatase 121 U/L (38-126) Total Protein 6.0 L g/dL (6.3-8.2) Albumin 3.1 L g/dL (3.5-5.1) Blood Type O Positive Antibody Screen Negative Patient hx anesthesia problems: none Family hx anesthesia problems: none Results Review: All pre-operative results and documents have been reviewed as part of the pre-o perative evaluation. [facility] Past Medical History Medical History Anxiety and depression CVA (cerebral vascular accident) (2022) Elevated liver enzymes Essential hypertension GERD (gastroesophageal reflux disease) With CT evidence of esophagitis and gastritis noted 10/10/2019 Gout History of substance abuse Hyperlipidemia Nausea and vomiting in adult Psoriasis RUQ pain Thyroid nodule TIA (transient ischemic attack) October 2023 Surgical History Surgical History History of History of endometrial ablation (2010) Family History Family History Sibling Colon cancer Hypertension Other No problems noted. Mother Hypertension Other Acute myocardial infarction Social History Social History Social History: The patient lives alone. She has 1 son but she is estranged from her son. She has 4 cats. She is a recovering alcoholic. She states that she has drink up to a pint of vodka a day. She used to use cocaine but has not done so in 20 years. She denies history of tobacco use. She does have heavy secondhand smoke exposure and her clothes in belongings smell of smoke. Code status: DNR/DNI per patient request. Nursing staff was at bedside and witnessed discussion of code status and plan of care with patient. Surrogate decision maker: Torytamir Strauss (friend) Smoking status: Never smoker Alcohol intake: current Drinks per week: 2 Alcohol use details: One pint of alcohol a day. Substance use: current Substance use type: marijuana Do You Feel Safe in your Home?: No Lack of Transportation: No Lack of Food: Never True Current Housing: I Do Not Have Housing Concerned About Future Housing: No Difficulty Paying Gas/Electric Bills: YES Difficulty Paying for Meds: YES Currently Unemployed: No Education: High School Diploma/GED Difficulty w/ Childcare or Family Care: No Spiritual care concerns: No Anes - Eval Final PreProcedure Day of Procedure 02/05/24 15:21 Patient weight: normal Heart: regular rate and rhythm Lungs: decreased breath sounds Airway: Mallampati scale class II and special considerations poor dentition Neurological: alert and oriented Last oral intake: >/= 8 hours ASA classification: III Emergent: no Anesthetic plan: proceed Anesthesia type and monitoring: general ETT and standard monitoring Results Review: All pre-operative results and documents have been reviewed as part of the pre- operative evaluation. Informed Consent: The patient's anesthetic plan and its attendant risks and benefits were discussed with the patient/family/POA. Questions were solicited and answers provided to the satisfaction of the patient/family/POA.
--- NOTE | 2024-02-05 15:43 | WPDGIPROGNO ---
Progress Note: A&P Assessment and Plan (1) Acute cholecystitis: Code(s): K81.0 - Acute cholecystitis Status: Acute Plan The patient's acute cholecystitis will be resolved today by laparoscopic cholecystectomy which she is currently undergoing. She will not need intraoperative cholangiogram due to complete normalization of her liver parameters. Please contact us as needed. Subjective Date/time seen: 02/05/24 15:43 Interval history: The patient is currently undergoing laparoscopic cholecystectomy. She fully recover from post ERCP pancreatitis, her bilirubin is currently normal as well as a renal function. Objective Data Vital Signs Vital Signs: Vital Signs - 24 hr 02/04/24 20:27 02/04/24 20:00 02/05/24 05:19 Temperature 98.0 F 98.0 F Pulse Rate 55 L 58 L Respiratory Rate 16 18 Blood Pressure 152/76 H 149/87 H Pulse Oximetry 97 98 Oxygen Delivery Room Air 02/05/24 08:00 02/05/24 14:00 02/05/24 14:26 Temperature 97.8 F 98.4 F Pulse Rate 67 60 Respiratory Rate 16 Blood Pressure 159/77 H 180/86 H Pulse Oximetry 97 99 Oxygen Delivery Room Air Room Air Intake/Output Intake/Output: Intake & Output 02/02/24 02/03/24 02/04/24 02/05/24 23:59 23:59 23:59 23:59 Intake Total 2790 3360.0 2095 584.1 Output Total 1050 600 Balance 1740 2760.0 2095 584.1 Meds/Results Medications: Active Medications Generic Name Dose Route Start Last Admin Trade Name Freq PRN Reason Stop Dose Admin Dextrose 12.5 gm 01/31/24 01:50 Dextrose 50% 25 Gm/50 Ml Syringe IV PUSH PRN PRN Hypoglycemia Protocol Glucagon 1 mg 01/31/24 01:50 Glucagon For Inj 1 Mg Vial IM PRN PRN Hypoglycemia Protocol Glucose 15 gm 01/31/24 01:50 Glucose Oral Gel 15 Gm Of Glucse In 37.5 Gm Tube PO PRN PRN Hypoglycemia Protocol Hydromorphone HCl 1 mg 02/02/24 08:07 02/04/24 16:44 Hydromorphone Hcl Inj (*Crx) 1 Mg/Ml Syr IV PUSH 1 mg Q2H PRN Administration Pain Rated 7-10 Hydromorphone HCl 0.5 mg 02/02/24 08:06 02/05/24 09:40 Hydromorphone Hcl Inj (*Crx) 1 Mg/Ml Syr IV PUSH 0.5 mg Q2H PRN Administration Pain Rated 4-6 Ceftriaxone Sodium 1 gm in 50 mls @ 100 mls/hr 02/01/24 03:00 02/05/24 03:01 Rocephin 1 Gm/Ns 50 Ml IVPB Infused Q24H JENY Infusion Dextrose 1,000 mls @ 100 mls/hr 01/31/24 01:50 Dextrose 5% 1,000 Ml IVPB PRN PRN Hypoglycemia Protocol Metronidazole 500 mg in 100 mls @ 100 mls/hr 02/01/24 15:35 02/05/24 14:38 Flagyl 500 Mg/Iso Soln 100 Ml IVPB Infused Q8HR JENY Infusion Dextrose/Lactated Ringer's 1,000 mls @ 50 mls/hr 02/02/24 16:15 02/05/24 06:24 Dextrose 5%/Lactated Ringers IV CONT 50 mls/hr .Q20H JENY Infusion Ondansetron HCl 4 mg 01/31/24 01:37 02/04/24 21:02 Ondansetron Inj 4 Mg/2 Ml Vial IV PUSH 4 mg Q4H PRN Administration Nausea Sodium Chloride 10 ml 02/03/24 22:00 02/05/24 13:38 Saline Lock Flush IV PUSH 10 ml Q8HR JENY Administration Sodium Chloride 10 ml 02/03/24 14:06 Saline Lock Flush IV PUSH PRN PRN Flush Sodium Chloride 20 ml 02/03/24 14:06 Saline Lock Flush IV PUSH PRN PRN after blood draws Thiamine HCl 100 mg 02/01/24 09:00 02/05/24 08:35 Thiamine Hcl 200 Mg/2 Ml Vial IV PUSH 100 mg QAM JENY Administration Radiology Results: ITS Impressions Abdomen/Pelvis CT 01/30/24 23:48 IMPRESSION: 1. Likely choledocholithiasis with secondary biliary obstruction and suspicion for developing acute cholecystitis. Correlate with liver function tests and for Devine sign. Could consider further evaluation with MRCP, right upper quadrant ultrasound or HIDA scan depending upon clinical suspicion and specific question to be addressed. 2. Acute to subacute L1 and L3 compression fractures which are new since 3 months prior. MRCP 01/31/24 09:59 IMPRESSION: 1. Choledocholithiasis with intrahepatic and extrahepatic biliary duct dilatation and gallbladder distention. Labs Labs: Laboratory Results - last 24 hr 02/05/24 06:39 WBC 4.5 RBC 3.21 L Hgb 10.4 L Hct 30.7 L MCV 95.6 MCH 32.4 MCHC 33.9 RDW 14.0 Plt Count 131 L MPV 11.4 H % Immature Plt Fraction 8.2 PT 14.2 INR 1.1 Sodium 135 L Potassium 3.4 Chloride 102 Carbon Dioxide 25 Anion Gap 8 BUN 3 L Creatinine 0.60 L Estim Creat Clear Calc 79 Estimated GFR > 60 Glucose 103 Calcium 8.8 Magnesium 1.3 L Total Bilirubin 1.6 H Direct Bilirubin 0.0 AST 22 ALT 18 Alkaline Phosphatase 121 Total Protein 6.0 L Albumin 3.1 L Blood Type O Positive Antibody Screen Negative
[2024-02-05] MEDS: BUPIVACAINE/EPINEPHRINE 0.5% 50 ML VIAL 30 ML INFILTRATE (15:50)
[2024-02-05] MEDS: LACTATED RINGERS 1,000 ML 30 ML IV CONT ×2 (16:44)
--- NOTE | 2024-02-05 16:47 | W.PM.PROC2 ---
Procedure Note - Detailed Date of Procedure 02/05/24 Pre-op Diagnosis Acute cholecystitis, choledocholithiasis Post-op Diagnosis Same Procedure Performed Laparoscopic cholecystectomy Surgeon Nick Pino, DO Anesthesia General and Local (0.5% bupivacaine) Indications This is a 58-year-old woman who presented with upper abdominal pain with nausea and vomiting. Workup showed evidence of acute cholecystitis and dilated common bile duct and suspected choledocholithiasis. She underwent MRCP which showed evidence of choledocholithiasis. She then underwent ERCP with sphincterotomy. Her liver enzymes improved after this, but she did have a mild bump in her lipase and was having epigastric pain postop day 1 from the ERCP. Her pancreatitis seemed to resolve relatively quickly but she was still having right upper quadrant pain. Discussions were then made with the patient about treatment options and decision was made to proceed with laparoscopic cholecystectomy, possible open. Findings Laparoscopic cholecystectomy was performed. The gallbladder was very indurated and had pericholecystic adhesions over the entire body and fundus of the gallbladder. The adhesions were carefully taken down and the neck of the gallbladder was able to be identified. I then identified the cystic duct which appeared normal in size. The gallbladder was removed and sent to the lab for pathology. There did appear to be some bleeding from the liver bed and from the adhesions that were taken down from the gallbladder. This was mostly controlled with electrocautery but then I also sprayed Surgiflo along the gallbladder fossa to covering machine operator helper with hemostasis. Description of Procedure Procedure as well as risks, benefits, and alternatives were discussed with patient. Written consent was obtained and placed in chart prior to procedure. The patient was brought back to surgical suite. Patient was placed in supine position on operating table. Time-out was done to confirm patient and procedure. Patient was then intubated by the anesthesia department. Abdomen was prepped and draped in sterile fashion using chlorhexidine prep. 0.5% bupivacaine with epinephrine was infiltrated at each site of incision. A 5 millimeter incision was made near the umbilicus, and a 5 millimeter Optiview trocar was advanced through the abdominal layers under direct visualization. Once inside the abdominal cavity, carbon dioxide was insufflated to create a pneumoperitoneum. The camera was inserted and the abdomen was inspected. No immediate abnormalities were identified. The patient was placed in reverse Trendelenburg position and rotated slightly to the left. An 11 millimeter incision was made in the subxiphoid region, and an 11 millimeter trocar was inserted under direct visualization. Two 5 millimeter incisions were made in the right upper quadrant, and two 5 millimeter trocars were inserted under direct visualization. The gallbladder was identified and grasped at the fundus and retracted superiorly. It was then grasped at the infundibulum retracted laterally. Careful dissection around the neck of the gallbladder was performed using blunt dissection with a [place] grasper and hook electrocautery. The cystic duct was identified, and a window was created behind it. The cystic artery was also identified and a window was created behind it. The critical view of safety was identified, visualizing the cystic duct running directly into the neck of the gallbladder, and the cystic artery running directly into the wall of the gallbladder. A 5 millimeter clip financial internship was then used to place 2 clips proximally and 1 clip distally on both the cystic duct and cystic artery. They were then both transected using endoscopic scissors. Once safely away from the karolyn hepatitis, the gallbladder was dissected free from the liver bed using hook electrocautery. Hemostasis was achieved along the way. The gallbladder was removed completely and then removed through the subxiphoid port. The liver bed was then inspected. Hemostasis was achieved with electrocautery and Surgiflo along the gallbladder fossa. Hemostasis appeared adequate, and our clips appeared secure. The area was gently irrigated with sterile saline. No other abnormalities were seen. The patient was flattened out in bed, and 1 final inspection was made around the abdominal cavity. The subxiphoid port was removed, and a Srinivasa Yariel cone was used to approximate the fascia with an 0-Vicryl simple interrupted suture. The remaining ports were then removed under direct visualization, the camera was removed, and the pneumoperitoneum was released. The skin of the incisions was approximated using 4-0 Monocryl subcuticular sutures. Exofin glue was applied on top. The patient was then awakened from anesthesia, extubated, and transferred to recovery. Estimated Blood Loss 50 Urine Output 600 Pathology Yes (Gallbladder) Complications No immediate complications Condition Stable Disposition Floor AM Billing Surgery - Charge Forward: Surgery Billing
[2024-02-05] MEDS: fentaNYL CITRATE INJ (*CRX) 100 MCG/2 ML VIAL 25 MCG IV PUSH ×8 (17:04→17:35)
--- NOTE | 2024-02-05 17:13 | SUR.PHASEI ---
7203 - oral airway removed. all teeth intact
[2024-02-05] MEDS: LABETALOL HCL INJ 100 MG/20 ML VIAL IV PUSH (17:26)
[2024-02-05] MEDS: diazePAM INJ (*CRX) 10 MG/2 ML SYRINGE 2 MG IV PUSH ×2 (18:05→18:26)
[2024-02-05] MEDS: LACTATED RINGERS 1,000 ML 100 ML IV CONT (20:53)
[2024-02-06 00:09] VITALS: BP 149/76; PULSE 57; RESP 17; TEMP 36.9; O2SAT 91
[2024-02-06 04:04] VITALS: BP 134/68; PULSE 54; RESP 16; TEMP 37.1; O2SAT 93
[2024-02-06] MEDS: metroNIDAZOLE 500 MG/ISO 100ML 500 MG/100 ML BAG 100 MG IVPB ×2 (05:55→13:26)
[2024-02-06 07:29] LABS: Hematocrit 30.9 % (37.0-47.0); Hemoglobin 10.5 g/dL (12.0-15.0); Mean Corpuscular Hemoglobin 32.1 pg (26-34); Mean Corpuscular Volume 94.5 fl (80-100); Mean Platelet Volume 10.9 fl (7.4-10.4); Platelet Count Result 162 k/mm3 (150-375); Red Blood Count 3.27 M/mm3 (4.2-5.4); Red Cell Distribution Width 13.7 % (11.5-14.5); White Blood Count 6.2 K/mm3 (4.5-10.0)
[2024-02-06 07:41] LABS: Alanine Aminotransferase 19 U/L (6-35); Albumin Level 3.3 g/dL (3.5-5.1); Alkaline Phosphatase 109 U/L (38-126); Anion Gap 11 mmol/L (4-12); Aspartate Amino Transferase 35 U/L (14-36); Bilirubin,Total 1.2 mg/dL (0.2-1.3); Blood Urea Nitrogen 7 mg/dL (7-17); Calcium 9.1 mg/dL (8.4-10.2); Carbon Dioxide 25 mmol/L (22-30); Chloride 100 mmol/L (98-107); Estimated CRCL calculation 93 ml/min; Estimated Glomerular Filt Rate > 60; Glucose 167 mg/dL (65-110); Potassium 4.1 mmol/L (3.4-5.0); Sodium 136 mmol/L (137-145)
--- NOTE | 2024-02-06 08:32 | PM.IMPN ---
Progress Note: A&P Assessment and Plan (1) Acute cholecystitis: Code(s): K81.0 - Acute cholecystitis Status: Acute Assessment and Plan: admit to regular medical floor started on Rocephin and Flagyl GI consult General surgery consult - clear liquid now- npo at midnight-ercp in am 01/31 - surgery on board- recommendations- She will need ERCP after which have recommended laparoscopic cholecystectomy. pt wants to wait after ERCp and decide on surgery after. 02/02- surgery planning on proceeding with Lap crystal sometime soon-very likely tomorrow she is on full liquids now-tolerates it well 02/04 lap crystal done 02/05 doing well- will continue antibiotics for another few days per guidelines -education provided not to drink alcohol while taking antibiosis (2) Choledocholithiasis: Code(s): K80.50 - Calculus of bile duct without cholangitis or cholecystitis without obstruction Status: Acute Assessment and Plan: GI consult General surgery consult - see above (3) Alcohol abuse: Code(s): F10.10 - Alcohol abuse, uncomplicated Status: Acute Assessment and Plan: CIWA as needed alcohol cessation counselling completed (4) GERD (gastroesophageal reflux disease): Qualifiers: Esophagitis bleeding: without hemorrhage Esophagitis presence: with esophagitis Qualified Code(s): K21.00 - Gastro-esophageal reflux disease with esophagitis, without bleeding Code(s): K21.9 - Gastro-esophageal reflux disease without esophagitis Status: Acute Assessment and Plan: PPI (5) UTI (urinary tract infection): Code(s): N39.0 - Urinary tract infection, site not specified Status: Acute Assessment and Plan: - final culture is negative (6) Pancreatitis, acute: Qualifiers: Acute pancreatitis complication: uninfected necrosis Pancreatitis type: unspecified pancreatitis type Qualified Code(s): K85.91 - Acute pancreatitis with uninfected necrosis, unspecified Code(s): K85.90 - Acute pancreatitis without necrosis or infection, unspecified Status: Acute Assessment and Plan: - surgery is following - s/s of pancreatitis - Liver enzymes remains elevated 02/04- Laparoscopic cholecystectomy today 02/05- resolved (7) Status post endoscopic retrograde cholangiopancreatography: Code(s): Z98.890 - Other specified postprocedural states Status: Acute Assessment and Plan: GI is following, notes reviewed: The patient's worsening pain might represent post ERCP pancreatitis. We'll increase LR fluid rate to the recommended 3 ml/kg/hr for the next 8 hours (180 ml per hour), then keep maintenance of 150 ml/hour for the rest of the day. Keep analgesics. Will check CMP in the morning and add amylase, lipase and CRP. 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 Pt is seen and examined. possible discharge today if cleared per surgery. Review of Systems Review of Systems: generalized tenderness to abd Gastrointestinal: Gastrointestinal: Reports abdominal pain and Reports nausea Musculoskeletal: Musculoskeletal: Denies back pain Psychiatric: Psychiatric: Reports anxiety Exam Narrative: appears comfortable Const: General: comfortable, no acute distress, well developed, alert, awake and average body habitus Nutritional Appearance: average body habitus Orientation/consciousness: patient oriented x3 Other: looks older than stated age HENMT: Head: normal to inspection, normocephalic and atraumatic Ears: hearing grossly normal bilaterally Face/Nose/Sinus: normal facial exam Face and sinus: normal facial exam Eyes: General: appearance normal, both eyes and all related structures Pupils: Equal, round and reactive pupils present EOM: EOMs intact bilaterally Neck: Neck: full ROM, no lymphadenopathy and no JVD Thyroid: thyroid normal Lymphatic: no lymphadenopathy noted Resp: Effort & Inspection: normal respiratory effort and able to speak in complete sentences Auscultation: clear to auscultation bilaterally Cardio: Jugular venous distension: no JVD Rate: regular rate Rhythm: regular rhythm Heart sounds: S1 normal heart sound present and S2 normal heart sound present : General: Yes deferred Skin: Rashes: no rashes Wounds: no wounds Neuro: General: patient oriented x3 and CN's II-XI intact bilaterally Cranial nerves: Yes CN's II-XII intact bilaterally and Yes Equal, round and reactive pupils present Cognition (Neuro): normal cognition Speech: normal speech Gait exam (Neuro): Normal gait present Motor exam (neuro): 5/5 motor strength present throughout Extrem: General: normal to inspection, full ROM, no joint enlargement and no pedal edema Objective Data Vital Signs Vital Signs: Vital Signs - 24 hr 02/05/24 14:00 02/05/24 14:26 02/05/24 16:44 Temperature 97.8 F 98.4 F 97.5 F L Pulse Rate 67 60 90 Respiratory Rate 16 12 Blood Pressure 159/77 H 180/86 H 136/86 Pulse Oximetry 97 99 100 Oxygen Delivery Room Air Simple Face Mask Oxygen Flow Rate 8 02/05/24 16:55 02/05/24 17:26 02/05/24 17:15 Temperature Pulse Rate 80 79 75 Respiratory Rate 16 14 Blood Pressure 184/99 H 179/102 H Pulse Oximetry 94 94 Oxygen Delivery Room Air Room Air Oxygen Flow Rate 02/05/24 17:30 02/05/24 17:45 02/05/24 18:00 Temperature Pulse Rate 78 77 77 Respiratory Rate 14 14 14 Blood Pressure 172/93 H 165/98 H 157/91 H Pulse Oximetry 94 94 94 Oxygen Delivery Room Air Nasal Cannula Nasal Cannula Oxygen Flow Rate 2 2 02/05/24 18:15 02/05/24 18:29 02/05/24 20:17 Temperature 97.9 F Pulse Rate 70 66 57 L Respiratory Rate 12 12 18 Blood Pressure 143/91 H 150/97 H 150/79 H Pulse Oximetry 95 95 90 Oxygen Delivery Nasal Cannula Nasal Cannula Oxygen Flow Rate 2 2 02/06/24 00:09 02/05/24 20:00 02/06/24 04:04 Temperature 98.4 F 98.8 F Pulse Rate 57 L 54 L Respiratory Rate 17 16 Blood Pressure 149/76 H 134/68 Pulse Oximetry 91 93 Oxygen Delivery Room Air Oxygen Flow Rate Intake/Output Intake/Output: Intake & Output 02/03/24 02/04/24 02/05/24 02/06/24 23:59 23:59 23:59 23:59 Intake Total 3360.0 2095 684.1 50 Output Total 600 600 Balance 2760.0 2095 84.1 50 Meds/Results Medications: Active Medications Generic Name Dose Route Start Last Admin Trade Name Freq PRN Reason Stop Dose Admin Acetaminophen 500 mg 02/05/24 18:32 Acetaminophen 500 Mg Tablet PO Q6H PRN Pain Rated 1-3 Hydrocodone Bitart/Acetaminophen 1 tab 02/05/24 18:32 Hydrocodone/Acetaminophen (*Crx) 5-325 Mg Tablet PO Q4H PRN Pain Rated 4-6 Hydrocodone Bitart/Acetaminophen 1 tab 02/05/24 18:32 Hydrocodone/Acetaminophen (*Crx) 10-325 Mg Tablet PO Q4H PRN Pain Rated 7-10 Dextrose 12.5 gm 01/31/24 01:50 Dextrose 50% 25 Gm/50 Ml Syringe IV PUSH PRN PRN Hypoglycemia Protocol Enoxaparin Sodium 40 mg 02/06/24 09:00 Enoxaparin 40 Mg/0.4 Ml Syringe SUB-Q DAILY JENY Glucagon 1 mg 01/31/24 01:50 Glucagon For Inj 1 Mg Vial IM PRN PRN Hypoglycemia Protocol Glucose 15 gm 01/31/24 01:50 Glucose Oral Gel 15 Gm Of Glucse In 37.5 Gm Tube PO PRN PRN Hypoglycemia Protocol Hydromorphone HCl 1 mg 02/05/24 18:32 Hydromorphone Hcl Inj (*Crx) 1 Mg/Ml Syr IV PUSH Q2H PRN Breakthrough Pain Rated 7-10 or NPO Hydromorphone HCl 0.5 mg 02/05/24 18:32 Hydromorphone Hcl Inj (*Crx) 1 Mg/Ml Syr IV PUSH Q2H PRN Breakthrough Pain Rated 4-6 or NPO Ceftriaxone Sodium 1 gm in 50 mls @ 100 mls/hr 02/01/24 03:00 02/06/24 04:28 Rocephin 1 Gm/Ns 50 Ml IVPB Infused Q24H JENY Infusion Dextrose 1,000 mls @ 100 mls/hr 01/31/24 01:50 Dextrose 5% 1,000 Ml IVPB PRN PRN Hypoglycemia Protocol Metronidazole 500 mg in 100 mls @ 100 mls/hr 02/01/24 15:35 02/06/24 05:55 Flagyl 500 Mg/Iso Soln 100 Ml IVPB 100 mls/hr Q8HR JENY Administration Ibuprofen 800 mg in 200 mls @ 400 mls/hr 02/05/24 18:32 Caldolor 800 Mg/200 Ml IVPB Q6H PRN Breakthrough Pain Rated 1-3 or NPO Naloxone HCl 0.1 mg 02/05/24 18:32 Naloxone Hcl 0.4 Mg/Ml Vial IV PUSH Q2M PRN Opiate Reversal Ondansetron HCl 4 mg 01/31/24 01:37 02/04/24 21:02 Ondansetron Inj 4 Mg/2 Ml Vial IV PUSH 4 mg Q4H PRN Administration Nausea Sodium Chloride 10 ml 02/03/24 22:00 02/06/24 06:09 Saline Lock Flush IV PUSH Not Given Q8HR JENY Sodium Chloride 10 ml 02/03/24 14:06 Saline Lock Flush IV PUSH PRN PRN Flush Sodium Chloride 20 ml 02/03/24 14:06 Saline Lock Flush IV PUSH PRN PRN after blood draws Thiamine HCl 100 mg 02/01/24 09:00 02/05/24 08:35 Thiamine Hcl 200 Mg/2 Ml Vial IV PUSH 100 mg QAM JENY Administration Radiology Results: ITS Impressions Abdomen/Pelvis CT 01/30/24 23:48 IMPRESSION: 1. Likely choledocholithiasis with secondary biliary obstruction and suspicion for developing acute cholecystitis. Correlate with liver function tests and for Devine sign. Could consider further evaluation with MRCP, right upper quadrant ultrasound or HIDA scan depending upon clinical suspicion and specific question to be addressed. 2. Acute to subacute L1 and L3 compression fractures which are new since 3 months prior. MRCP 01/31/24 09:59 IMPRESSION: 1. Choledocholithiasis with intrahepatic and extrahepatic biliary duct dilatation and gallbladder distention. Labs Labs: Laboratory Results - last 24 hr 02/06/24 07:20 WBC 6.2 RBC 3.27 L Hgb 10.5 L Hct 30.9 L MCV 94.5 MCH 32.1 MCHC 34.0 RDW 13.7 Plt Count 162 MPV 10.9 H Sodium 136 L Potassium 4.1 Chloride 100 Carbon Dioxide 25 Anion Gap 11 BUN 7 Creatinine 0.50 L Estim Creat Clear Calc 93 Estimated GFR > 60 Glucose 167 H Calcium 9.1 Total Bilirubin 1.2 Direct Bilirubin 0.0 AST 35 ALT 19 Alkaline Phosphatase 109 Total Protein 7.0 Albumin 3.3 L Quality VTE Prophylaxis VTE prophylaxis: mechanical ordered
[2024-02-06] MEDS: THIAMINE HCL 200 MG/2 ML VIAL 100 MG IV PUSH (08:33)
[2024-02-06] MEDS: ENOXAPARIN 40 MG/0.4 ML SYRINGE SUB-Q (08:34)
[2024-02-06] MEDS: SALINE LOCK FLUSH 10 ML IV PUSH (13:26)
--- NOTE | 2024-02-06 15:17 | P.PNGS_ITS ---
Progress Note: A&P Assessment and Plan (1) Acute cholecystitis: Code(s): K81.0 - Acute cholecystitis Status: Acute Assessment and Plan: * Postop day 1 following laparoscopic cholecystectomy and doing well. Guerrero rating a low-fat diet. She is surgically stable for discharge today if okay with other services. Follow-up with Dr. Pino in 2 weeks. All discharge instructions discussed with the patient. Subjective Subjective Date/Time Seen: 02/06/24 15:17 Post Op day: 1 (Laparoscopic cholecystectomy) Patient reports: no new complaints, feels better, pain is less, tolerating a regular diet, voiding w/o difficulty, flatus, no bowel movement and afebrile Interval history: Patient is feeling well today. Reports incisional soreness with getting up and moving around, but this is tolerable. No nausea or vomiting. Reports her abdominal pain that was there previously to surgery has completely resolved. Exam Const: General: comfortable and no acute distress Orientation/consciousness: patient oriented x3 GI: Inspection: non-distended and incision (incisions dry and intact) GI Palp: Yes Soft to palpation, Yes Tenderness to palpation present (GI) (incisional) and No Guarding due to palpation present (GI) Auscultation: normal bowel sounds Objective Data Vital Signs Vital Signs: Vital Signs - 24 hr 02/05/24 16:44 02/05/24 16:55 02/05/24 17:26 Temperature 97.5 F L Pulse Rate 90 80 79 Respiratory Rate 12 16 Blood Pressure 136/86 184/99 H Pulse Oximetry 100 94 Oxygen Delivery Simple Face Mask Room Air Oxygen Flow Rate 8 02/05/24 17:15 02/05/24 17:30 02/05/24 17:45 Temperature Pulse Rate 75 78 77 Respiratory Rate 14 14 14 Blood Pressure 179/102 H 172/93 H 165/98 H Pulse Oximetry 94 94 94 Oxygen Delivery Room Air Room Air Nasal Cannula Oxygen Flow Rate 2 02/05/24 18:00 02/05/24 18:15 02/05/24 18:29 Temperature Pulse Rate 77 70 66 Respiratory Rate 14 12 12 Blood Pressure 157/91 H 143/91 H 150/97 H Pulse Oximetry 94 95 95 Oxygen Delivery Nasal Cannula Nasal Cannula Nasal Cannula Oxygen Flow Rate 2 2 2 02/05/24 20:17 02/06/24 00:09 02/05/24 20:00 Temperature 97.9 F 98.4 F Pulse Rate 57 L 57 L Respiratory Rate 18 17 Blood Pressure 150/79 H 149/76 H Pulse Oximetry 90 91 Oxygen Delivery Room Air Oxygen Flow Rate 02/06/24 04:04 02/06/24 08:35 Temperature 98.8 F Pulse Rate 54 L Respiratory Rate 16 Blood Pressure 134/68 Pulse Oximetry 93 Oxygen Delivery Room Air Oxygen Flow Rate Intake/Output Intake/Output: Intake & Output 02/03/24 02/04/24 02/05/24 02/06/24 23:59 23:59 23:59 23:59 Intake Total 3360.0 2095 684.1 870 Output Total 600 600 Balance 2760.0 2095 84.1 870 Meds/Results Medications: Active Medications Generic Name Dose Route Start Last Admin Trade Name Freq PRN Reason Stop Dose Admin Acetaminophen 500 mg 02/05/24 18:32 Acetaminophen 500 Mg Tablet PO Q6H PRN Pain Rated 1-3 Hydrocodone Bitart/Acetaminophen 1 tab 02/05/24 18:32 Hydrocodone/Acetaminophen (*Crx) 5-325 Mg Tablet PO Q4H PRN Pain Rated 4-6 Hydrocodone Bitart/Acetaminophen 1 tab 02/05/24 18:32 Hydrocodone/Acetaminophen (*Crx) 10-325 Mg Tablet PO Q4H PRN Pain Rated 7-10 Cefuroxime Axetil 500 mg 02/06/24 21:00 Cefuroxime Axetil 250 Mg Tablet PO 02/08/24 09:01 Q12HR JENY Dextrose 12.5 gm 01/31/24 01:50 Dextrose 50% 25 Gm/50 Ml Syringe IV PUSH PRN PRN Hypoglycemia Protocol Enoxaparin Sodium 40 mg 02/06/24 09:00 02/06/24 08:34 Enoxaparin 40 Mg/0.4 Ml Syringe SUB-Q 40 mg DAILY JENY Administration Glucagon 1 mg 01/31/24 01:50 Glucagon For Inj 1 Mg Vial IM PRN PRN Hypoglycemia Protocol Glucose 15 gm 01/31/24 01:50 Glucose Oral Gel 15 Gm Of Glucse In 37.5 Gm Tube PO PRN PRN Hypoglycemia Protocol Hydromorphone HCl 1 mg 02/05/24 18:32 Hydromorphone Hcl Inj (*Crx) 1 Mg/Ml Syr IV PUSH Q2H PRN Breakthrough Pain Rated 7-10 or NPO Hydromorphone HCl 0.5 mg 02/05/24 18:32 Hydromorphone Hcl Inj (*Crx) 1 Mg/Ml Syr IV PUSH Q2H PRN Breakthrough Pain Rated 4-6 or NPO Dextrose 1,000 mls @ 100 mls/hr 01/31/24 01:50 Dextrose 5% 1,000 Ml IVPB PRN PRN Hypoglycemia Protocol Ibuprofen 800 mg in 200 mls @ 400 mls/hr 02/05/24 18:32 Caldolor 800 Mg/200 Ml IVPB Q6H PRN Breakthrough Pain Rated 1-3 or NPO Metronidazole 500 mg 02/06/24 22:00 Metronidazole 500 Mg Tablet PO 02/08/24 14:01 Q8HR JENY Naloxone HCl 0.1 mg 02/05/24 18:32 Naloxone Hcl 0.4 Mg/Ml Vial IV PUSH Q2M PRN Opiate Reversal Ondansetron HCl 4 mg 01/31/24 01:37 02/04/24 21:02 Ondansetron Inj 4 Mg/2 Ml Vial IV PUSH 4 mg Q4H PRN Administration Nausea Sodium Chloride 10 ml 02/03/24 22:00 02/06/24 13:26 Saline Lock Flush IV PUSH 10 ml Q8HR JENY Administration Sodium Chloride 10 ml 02/03/24 14:06 Saline Lock Flush IV PUSH PRN PRN Flush Sodium Chloride 20 ml 02/03/24 14:06 Saline Lock Flush IV PUSH PRN PRN after blood draws Thiamine HCl 100 mg 02/01/24 09:00 02/06/24 08:33 Thiamine Hcl 200 Mg/2 Ml Vial IV PUSH 100 mg QAM JENY Administration Radiology Results: ITS Impressions Abdomen/Pelvis CT 01/30/24 23:48 IMPRESSION: 1. Likely choledocholithiasis with secondary biliary obstruction and suspicion for developing acute cholecystitis. Correlate with liver function tests and for Devine sign. Could consider further evaluation with MRCP, right upper quadrant ultrasound or HIDA scan depending upon clinical suspicion and specific question to be addressed. 2. Acute to subacute L1 and L3 compression fractures which are new since 3 months prior. MRCP 01/31/24 09:59 IMPRESSION: 1. Choledocholithiasis with intrahepatic and extrahepatic biliary duct dilatation and gallbladder distention. Labs Labs: Laboratory Results - last 24 hr 02/06/24 07:20 WBC 6.2 RBC 3.27 L Hgb 10.5 L Hct 30.9 L MCV 94.5 MCH 32.1 MCHC 34.0 RDW 13.7 Plt Count 162 MPV 10.9 H Sodium 136 L Potassium 4.1 Chloride 100 Carbon Dioxide 25 Anion Gap 11 BUN 7 Creatinine 0.50 L Estim Creat Clear Calc 93 Estimated GFR > 60 Glucose 167 H Calcium 9.1 Total Bilirubin 1.2 Direct Bilirubin 0.0 AST 35 ALT 19 Alkaline Phosphatase 109 Total Protein 7.0 Albumin 3.3 L
--- NOTE | 2024-02-06 15:38 | PC.NURSE ---
Per hospitalistSara okay to dc midline and dc pt home.
[2024-02-06 16:17] VITALS: BP 143/90; PULSE 74; RESP 20; TEMP 36.7; O2SAT 99
--- NOTE | 2024-02-14 07:22 | P.DS_ITS ---
DS: Admitting Diagnosis Discharge Date 02/06/24 Admitting Diagnosis abd pain, n/v DS: Discharge Diagnosis Discharge Diagnosis (1) Acute cholecystitis: Code(s): K81.0 - Acute cholecystitis Status: Acute Assessment and Plan: admit to regular medical floor started on Rocephin and Flagyl GI consult General surgery consult - clear liquid now- npo at midnight-ercp in am 01/31 - surgery on board- recommendations- She will need ERCP after which have recommended laparoscopic cholecystectomy. pt wants to wait after ERCp and decide on surgery after. 02/02- surgery planning on proceeding with Lap crystal sometime soon-very likely tomorrow she is on full liquids now-tolerates it well 02/04 lap crystal done 02/05 doing well- will continue antibiotics for another few days per guidelines -education provided not to drink alcohol while taking antibiosis (2) Choledocholithiasis: Code(s): K80.50 - Calculus of bile duct without cholangitis or cholecystitis without obstruction Status: Acute Assessment and Plan: GI consult General surgery consult - see above (3) Alcohol abuse: Code(s): F10.10 - Alcohol abuse, uncomplicated Status: Acute Assessment and Plan: CIWA as needed alcohol cessation counselling completed (4) GERD (gastroesophageal reflux disease): Qualifiers: Esophagitis presence: with esophagitis Esophagitis bleeding: without hemorrhage Qualified Code(s): K21.00 - Gastro-esophageal reflux disease with esophagitis, without bleeding Code(s): K21.9 - Gastro-esophageal reflux disease without esophagitis Status: Acute Assessment and Plan: PPI (5) UTI (urinary tract infection): Code(s): N39.0 - Urinary tract infection, site not specified Status: Acute Assessment and Plan: - final culture is negative (6) Pancreatitis, acute: Qualifiers: Pancreatitis type: unspecified pancreatitis type Acute pancreatitis complication: uninfected necrosis Qualified Code(s): K85.91 - Acute pancreatitis with uninfected necrosis, unspecified Code(s): K85.90 - Acute pancreatitis without necrosis or infection, unspecified Status: Acute Assessment and Plan: - surgery is following - s/s of pancreatitis - Liver enzymes remains elevated 02/04- Laparoscopic cholecystectomy today 02/05- resolved (7) Status post endoscopic retrograde cholangiopancreatography: Code(s): Z98.890 - Other specified postprocedural states Status: Acute Assessment and Plan: GI is following, notes reviewed: The patient's worsening pain might represent post ERCP pancreatitis. We'll increase LR fluid rate to the recommended 3 ml/kg/hr for the next 8 hours (180 ml per hour), then keep maintenance of 150 ml/hour for the rest of the day. Keep analgesics. Will check CMP in the morning and add amylase, lipase and CRP. (8) Electrolyte abnormality: Code(s): E87.8 - Other disorders of electrolyte and fluid balance, not elsewhere class ified Status: Acute Assessment and Plan: - hypokalemia, hypomagnesimia - IV K was ordered over night, will order one more dose and IV mg- repeat electrolytes 1h after infusion is completed - trend labs daily Plan # h/o CVA 1 year ago, TIA 3 months ago DS: Summary Hospital Course Hospital Course: Zuleyka Max is a 58 year old female with past medical history of alcohol abuse, hypertension, intermittent methamphetamine use, and history of CVA about a year ago. She was in the hospital about 3 months ago for acute cholecystitis, ultrasound on 10/31/2023 showed gallbladder sludge with gallbladder wall thickening and biliary dilatation, as well as fatty liver. She didnot want to have surgery at that time and treated only medically. She is a drinker and has been drinking more lately. Reports no recent pancreatitis. She is admitted with a new onset of severe right upper quadrant abdominal pain and nausea/vomitting. ER Labs white blood cell count 6300, total bilirubin 2.4, AST 352, ALT 99, alk-phos 279, lipase 193. CT scan of the abdomen and pelvis shows likely choledocholithiasis with secondary biliary obstruction and suspicion for developing acute cholecystitis, and acute to subacute L1 and L3 compression fractures which are new since 3 months prior. MRCP confirmed stones in bile duct- common duct is dilated to 12 mm. There is a 6 x 9 mm stone or cluster of stones in the common bile duct. 01/31- worsening abd pain - post ERCP pancreatitis. LR fluids IV, NPO, continue analgesics. after patient's acute pancreatitis post ERCP is resolved- she had laparoscopic cholecystectomy 02/04- Laparoscopic cholecystectomy Patient felt better, pain is less, tolerated a regular diet, voiding w/o difficulty, flatus, no bowel movement and afebrile. She was stable for discharge with Follow-up with Dr. Pino in 2 weeks Status at Discharge Functional status at discharge: independent ambulation Overall status at discharge: patient is progressing back to baseline Time Spent with Patient Time attestation: Total time spent providing and/or coordinating discharge services: Exam Narrative: appears comfortable Const: General: comfortable, no acute distress, well developed, alert, awake and average body habitus Nutritional Appearance: average body habitus Orientation/consciousness: patient oriented x3 Other: looks older than stated age HENMT: Head: normal to inspection, normocephalic and atraumatic Ears: hearing grossly normal bilaterally Face/Nose/Sinus: normal facial exam Face and sinus: normal facial exam Eyes: General: appearance normal, both eyes and all related structures Pupils: Equal, round and reactive pupils present EOM: EOMs intact bilaterally Neck: Neck: full ROM, no lymphadenopathy and no JVD Thyroid: thyroid normal Lymphatic: no lymphadenopathy noted Resp: Effort & Inspection: normal respiratory effort and able to speak in complete sentences Auscultation: clear to auscultation bilaterally Cardio: Jugular venous distension: no JVD Rate: regular rate Rhythm: regular rhythm Heart sounds: S1 normal heart sound present and S2 normal heart sound present : General: Yes deferred Skin: Rashes: no rashes Wounds: no wounds Neuro: General: patient oriented x3 and CN's II-XI intact bilaterally Cranial nerves: Yes CN's II-XII intact bilaterally and Yes Equal, round and reactive pupils present Cognition (Neuro): normal cognition Speech: normal speech Gait exam (Neuro): Normal gait present Motor exam (neuro): 5/5 motor strength present throughout Extrem: General: normal to inspection, full ROM, no joint enlargement and no pedal edema DS: Data Data Completed and Pending Completed studies during hospitalization: Pending at discharge 02/05/24 15:49 Surgical [PTH] Routine Discharge Plan Discharge Consulting providers: Nick Pino; Rashmi Horton; Jossue Yusuf; Sindhu Downs; Katarina Partida; Trice Akbar James S.; Inna Urena; Keyur Kang V.; Darrell Díaz; Lukas Wilson; Whitley Sánchez Discharging Clinician: Madelyn Mak Patient Disposition: Home, Self-Care Activity: may shower and other - see discharge instructions Diet: low fat Wound Care Instructions: incision open to air Discharge Instructions: DISCHARGE INSTRUCTION SHEET FOR HERNIA, GALLBLADDER AND APPENDIX SURGERIES DR. PINO 1. May shower in 24 hours, no soaking in bath x 2weeks. 2. Call office for: * Wound increasingly painful or bleeding * Vomiting * Fever of greater than 101 degrees 3. If no bowel movement for three days, take 1 oz. (30 ml) Milk of Magnesia or MiraLax 17g 1 to 2 times daily. 4. No heavy lifting > 10-15 pounds x 2 weeks for laparoscopic cholecystectomy or appendectomy. 5. No driving for 3 days or while taking narcotic pain medications. 6. Ice to surgical site for 48 hours (30 min on, then 30 min off). 7. Up walking 10-30 minutes three times per day. 8. Resume previous home medications. 9. Call to schedule an appointment to follow up with Dr. Pino in 2 weeks. [phone] 10. Take Tylenol 500mg every 6 hours and Ibuprofen 600mg every 6 hours for the first 2 days, then as needed. 11. NUTRITION: Start out by drinking fluids and increase your diet as tolerated. If you experience nausea, try dry toast, crackers, and 7-UP. If nausea or vomiting persists, contact your surgeon?s office. 12. Gallbladders-Low Fat Diet for 2 weeks. No drinking alcohol while taking your antibiotics. Patient Instructions: Antibiotic Form, Low Fat Diet (DC), Removal of a Central Line, PICC, or Midline Catheter (DC) Stand Alone Forms: General Discharge Information Follow-up/Referrals: Nick Pino DO [Physician] - 2 Weeks Discharge Medications: New cefuroxime axetil 250 mg Tablet 500 mg PO Q12HR 3 Days Qty: 6 0RF metronidazole 500 mg Tablet 500 mg PO Q8HR 3 Days Qty: 9 0RF Continued atorvastatin 80 mg tablet 80 mg PO DAILY folic acid 1 mg tablet 1 mg PO DAILY clobetasol 0.05 % ointment 1 applic TOPICAL TID Rx Instructions: ARMS AND LEGS losartan 100 mg tablet 100 mg PO DAILY aspirin 81 mg Tablet 81 mg PO DAILY famotidine 20 mg Tablet 20 mg PO DAILY halobetasol propionate 0.05 % Ointment 1 applic TOPICAL TID Rx Instructions: extremeties mupirocin 2 % Ointment 1 applic TOPICAL TID Rx Instructions: extremeties hydrocodone-acetaminophen 5-325 mg tablet 1 tablet PO Q4-6H PRN (Reason: pain) Qty: 10 0RF Date of admission: 01/31/24 06:57 Primary Care Provider: Obdulio,Vince Leo Admitting Provider: Danii Wren V. Attending physician on admission: Madelyn Mak Condition: Stable Quality VTE Prophylaxis VTE prophylaxis: mechanical ordered Hospitalist MIPS Heart Failure (Exclusion) Patient has history of Heart Transplant or Left Ventricular Assistive Device?: No IF YES, STOP HERE Heart Failure (Qualifier) Patient has current or prior documentation of LVEF less than or equal to 40%, or mod/servere depressed LVSF?: No IF NO, STOP HERE
== END 2024-02-06 17:35 | disposition home or self-care (01) | DRG 263 ==
LOC: ANHED 01-31 02:08 → ANH3MEDSUR 01-31 02:32
PROVIDERS: Emergency Medicine; General Practice; Internal Medicine Gastroenterology; Nurse Practitioner Family; Surgery; Admitting Provider Internal Medicine; Emergency Provider Physician Assistant; PCP Internal Medicine Gastroenterology; Visit Provider Nurse Practitioner
PROC: BF101ZZ Fluoroscopy of Bile Ducts using Low Osmolar Contrast (ICD-10-PCS; CPT 43260; principal; 2024-02-01 12:00)
PROC: 0FT44ZZ Resection of Gallbladder, Percutaneous Endoscopic Approach (ICD-10-PCS; CPT 47562; principal; 2024-02-05 15:30)
DX: K80.42 Calculus of bile duct with acute cholecystitis without obstruction (principal); K85.90 Acute pancreatitis without necrosis or infection, unspecified; K91.89 Other postprocedural complications and disorders of digestive system; N39.0 Urinary tract infection, site not specified; I10 Essential (primary) hypertension; E83.42 Hypomagnesemia; E87.6 Hypokalemia; E78.5 Hyperlipidemia, unspecified; K21.9 Gastro-esophageal reflux disease without esophagitis; L40.9 Psoriasis, unspecified; M10.9 Gout, unspecified; F10.10 Alcohol abuse, uncomplicated; F15.90 Other stimulant use, unspecified, uncomplicated; F41.9 Anxiety disorder, unspecified; F32.A Depression, unspecified; Z86.73 Personal history of transient ischemic attack (TIA), and cerebral infarction without residual deficits
CPT/HCPCS: 36415; 36569; 74177; 74183; 74329; 76376; 80048; 80053; 80076; 81001; 82150; 83690; 83735; 85025; 85027; 85055; 85610; 85730; 86140; 86850; 86900; 86901; 87040; 87086; 88304; 96361; 96374; 96375; 96376; 99285; A9270; A9577; C1751; G0378; G0379; J0330; J0696; J1100; J1171; J1650; J1741; J1836; J2003; J2060; J2250; J2270; J2405; J2704; J3010; J3360; J3411; J3475; J3480; J7030; J7040; J7120; J7121; Q9966; Q9967

== ENCOUNTER 2024-05-30 17:12 | Emergency (ER) | payer OTHER, SELFPAY ==
[2024-05-30 17:17] VITALS: BP 119/74; PULSE 62; RESP 16; TEMP 36.4; O2SAT 99
--- NOTE | 2024-05-30 17:23 | ED_ITS ---
HPI - Psych General Chief Complaint: Psychiatric Symptoms <Summer Mistry APRN - Last Filed: 05/30/24 19:45> Stated Complaint: [id number] <Summer Mistry APRN - Last Filed: 05/30/24 19:45> Time Seen by Provider: 05/30/24 17:22 <Summer Mistry LEAD PYTHON DEVELOPER - Last Filed: 05/30/24 19:45> History of Present Illness HPI Narrative: Patient is a 58-year-old female who presents to the ER with complaints of suicidal ideation. She reports she is in ?constant pain and reports I just wanted give up and I do not care about life anymore. Patient reports she drinks alcohol every day, approximately half a pt of vodka. She endorses a history of high blood pressure, back pain, alcohol withdrawal, TIA, ovarian cysts, stroke. Patient reports her ovarian/groin pain is worse today due to recent forceful sex. When asked if patient had thoughts of harming herself for someone else she said, I guess I'm to that point. Patient endorses drinking approximately half a pt of vodka prior to arrival. She also reports she was recently at [facility] where she went through alcohol withdrawal. Patient is requesting a dose of Dilaudid upon time of examination. <Summer Mistry APRN - Last Filed: 05/30/24 19:45> Related Data Home Medications: Home Medications ?Medication ?Instructions ?Recorded ?Confirmed ?Last Taken ?Type atorvastatin 80 mg tablet 80 mg PO DAILY 10/30/23 01/31/24 Unknown History clobetasol 0.05 % topical ointment 1 applic topical TID psoriasis 10/30/23 01/31/24 Unknown History folic acid 1 mg tablet 1 mg PO DAILY 10/30/23 01/31/24 Unknown History losartan 100 mg tablet 100 mg PO DAILY 10/30/23 01/31/24 Unknown History aspirin 81 mg tablet 81 mg PO DAILY 10/31/23 01/31/24 Unknown History famotidine 20 mg tablet 20 mg PO DAILY 01/31/24 01/31/24 Unknown History halobetasol propionate 0.05 % 1 applic topical TID psoriasis 01/31/24 01/31/24 Unknown History topical ointment mupirocin 2 % topical ointment 1 applic topical TID psoriasis 01/31/24 01/31/24 Unknown History <Summer Mistry APRN - Last Filed: 05/30/24 19:45> Allergies/Adverse Reactions: Allergies Allergy/AdvReac Type Severity Reaction Status Date / Time Penicillins Allergy Severe HIVES Verified 02/05/24 09:24 Sulfa (Sulfonamide AdvReac Severe HIVES Verified 02/01/24 11:43 Antibiotics) <Summer Mistry APRN - Last Filed: 05/30/24 19:45> Review of Systems 2 Review of Systems: All systems reviewed & are unremarkable except as noted in HPI and below <Summer Mistry APRN - Last Filed: 05/30/24 19:45> [facility] Past Medical History Medical History: Medical History Nausea and vomiting in adult RUQ pain Elevated liver enzymes History of substance abuse Anxiety and depression Psoriasis Thyroid nodule Gout Essential hypertension Hyperlipidemia CVA (cerebral vascular accident) (2022) TIA (transient ischemic attack) October 2023 GERD (gastroesophageal reflux disease) With CT evidence of esophagitis and gastritis noted 10/10/2019 <Summer Mistry APRN - Last Filed: 05/30/24 19:45> Surgical History Surgical History: Surgical History History of History of endometrial ablation (2010) <Summer Mistry APRN - Last Filed: 05/30/24 19:45> Family History Family History: Family History Sibling Colon cancer Hypertension Other No problems noted. Mother Hypertension Other Acute myocardial infarction <Summer Mistry APRN - Last Filed: 05/30/24 19:45> Social History Social History: Social History Social History: The patient lives alone. She has 1 son but she is estranged from her son. She has 4 cats. She is a recovering alcoholic. She states that she has drink up to a pint of vodka a day. She used to use cocaine but has not done so in 20 years. She denies history of tobacco use. She does have heavy secondhand smoke exposure and her clothes in belongings smell of smoke. Code status: DNR/DNI per patient request. Nursing staff was at bedside and witnessed discussion of code status and plan of care with patient. Surrogate decision maker: Tory Torresurray (friend) Smoking status: Never smoker Alcohol intake: current Drinks per week: 2 Alcohol use details: One pint of alcohol a day. Substance use: current Substance use type: marijuana Do You Feel Safe in your Home?: No Lack of Transportation: No Lack of Food: Never True Current Housing: I Do Not Have Housing Concerned About Future Housing: No Difficulty Paying Gas/Electric Bills: YES Difficulty Paying for Meds: YES Currently Unemployed: No Education: High School Diploma/GED Difficulty w/ Childcare or Family Care: No Spiritual care concerns: No <Summer Mistry, LEAD PYTHON DEVELOPER - Last Filed: 05/30/24 19:45> Exam 2 Narrative: GENERAL: Ill-appearing, well-nourished, non-toxic, in no acute distress. HEAD: Normocephalic, atraumatic. NECK: Supple. No adenopathy, no masses. RESPIRATORY: Airway patent, respirations nonlabored. Clear to auscultation bilaterally, no rales, rhonchi, wheezing. CARDIOVASCULAR: Regular rate and rhythm without murmurs, rubs, or gallops. Peripheral pulses 2+ and equal bilaterally. ABDOMINAL: Soft, nontender, nondistended, no hepatosplenomegaly. Normoactive BS. MUSCULOSKELETAL: Moves all extremities. Strength/ROM intact without gross deformities. SKIN: Warm, dry, normal color. No rashes. NEURO: A&O X3. Speech slurred. No ataxic movements. PSYCHIATRIC: Inappropriate mood, tearful intermittently, flat affect. <Summer Mistry, LEAD PYTHON DEVELOPER - Last Filed: 05/30/24 19:45> Course FIRE ENGINE PUMP OPERATOR/PA Physician Supervision For this patient encounter, I reviewed the FIRE ENGINE PUMP OPERATOR or PA documentation, treatment plan, and medical decision making and had [id number] time with this patient. I performed all aspects of the MDM as documented. <Whitley Sánchez MD - Last Filed: 05/31/24 06:03> Vital Signs Vital signs: Vital Signs Temperature 97.6 F 05/30/24 17:17 Pulse Rate 62 05/30/24 17:17 Respiratory Rate 16 05/30/24 17:17 Blood Pressure 119/74 05/30/24 17:17 Pulse Oximetry 99 05/30/24 17:17 Oxygen Delivery Room Air 05/30/24 17:17 Temperature 97.5 F L 05/31/24 04:28 Pulse Rate 81 05/31/24 04:28 Respiratory Rate 18 05/31/24 04:28 Blood Pressure 131/82 05/31/24 04:28 Pulse Oximetry 100 05/31/24 04:28 Oxygen Delivery Room Air 05/30/24 17:17 <Summer Mistry APRN - Last Filed: 05/30/24 19:45> Vital Signs Temperature 97.6 F 05/30/24 17:17 Pulse Rate 62 05/30/24 17:17 Respiratory Rate 16 05/30/24 17:17 Blood Pressure 119/74 05/30/24 17:17 Pulse Oximetry 99 05/30/24 17:17 Oxygen Delivery Room Air 05/30/24 17:17 Temperature 97.5 F L 05/31/24 04:28 Pulse Rate 81 05/31/24 04:28 Respiratory Rate 18 05/31/24 04:28 Blood Pressure 131/82 05/31/24 04:28 Pulse Oximetry 100 05/31/24 04:28 Oxygen Delivery Room Air 05/30/24 17:17 <Whitley Sánchez MD - Last Filed: 05/31/24 06:03> MDM - Psych MDM Narrative Medical decision making narrative: Patient is a 58-year-old female who presents to the ER with complaints of suicidal ideation. She reports she is in ?constant pain and reports I just wanted give up and I do not care about life anymore. Patient reports she drinks alcohol every day, approximately half a pt of vodka. She endorses a history of high blood pressure, back pain, alcohol withdrawal, TIA, ovarian cysts, stroke. Patient reports her ovarian/groin pain is worse today due to recent forceful sex. When asked if patient had thoughts of harming herself for someone else she said, I guess I'm to that point. Patient endorses drinking approximately half a pt of vodka prior to arrival. She also reports she was recently at [facility] where she went through alcohol withdrawal. Patient is requesting a dose of Dilaudid upon time of examination. Labs Ordered: CBC, CMP, TSH, UA, COVID/flu/RSV, UDS Imaging Ordered: None necessary Medications Ordered: Macrobid PO and Pyridium PO (urinary tract infection and urinary symptoms) Results: urinary tract infection Diagnosis: alcohol intoxication, urinary tract infection, suicidal ideation Consults: intake Patient Education/Shared MDM: Results shared with patient. 1899- Pt is endorsing back pain and ovarian pain. Once again, pt was offered Tylenol and Ibuprofen to start. She declined. 1944- Pt once again is requesting Dilaudid. It was explained to pt that she's not a candidate to receive Dilaudid. She was in agreement with plan to start with Tylenol and Ibuprofen. <Summer Mistry, LEAD PYTHON DEVELOPER - Last Filed: 05/30/24 19:45> Patient is a 58-year-old female who presents to the ER with complaints of suicidal ideation. She reports she is in ?constant pain and reports I just wanted give up and I do not care about life anymore. Patient reports she drinks alcohol every day, approximately half a pt of vodka. She endorses a history of high blood pressure, back pain, alcohol withdrawal, TIA, ovarian cysts, stroke. Patient reports her ovarian/groin pain is worse today due to recent forceful sex. When asked if patient had thoughts of harming herself for someone else she said, I guess I'm to that point. Patient endorses drinking approximately half a pt of vodka prior to arrival. She also reports she was recently at [facility] where she went through alcohol withdrawal. Patient is requesting a dose of Dilaudid upon time of examination. Labs Ordered: CBC, CMP, TSH, UA, COVID/flu/RSV, UDS Imaging Ordered: None necessary Medications Ordered: Macrobid PO and Pyridium PO (urinary tract infection and urinary symptoms) Results: urinary tract infection Diagnosis: alcohol intoxication, urinary tract infection, suicidal ideation Consults: intake Patient Education/Shared MDM: Results shared with patient. 1899- Pt is endorsing back pain and ovarian pain. Once again, pt was offered Tylenol and Ibuprofen to start. She declined. 1944- Pt once again is requesting Dilaudid. It was explained to pt that she's not a candidate to receive Dilaudid. She was in agreement with plan to start with Tylenol and Ibuprofen. 0500: Repeat alcohol level is now less than 80 and patient is clinically sober for psychiatric evaluation. Patient is not denying any suicidal homicidal ideations. Urinalysis revealed UTI and patient was informed that she will need to be started on oral antibiotic, she a script for nitrofurantoin was sent to patient's pharmacy to take as prescribed for her UTI given her penicillin/sulfa allergy. 0600: Patient has been evaluated by our central intake/psychiatric team and after their evaluation they are recommending discharge home with a safety plan. Patient continues to deny any suicidal homicidal ideations. Was instructed to use the resources provided to her and follow the safety plan provided to her by our central intake team as instructed. She was also instructed to follow-up with her primary care physician within the next 3-5 days and to return to the ED if any new or worsening symptoms develop. She was discharged in stable condition. <Whitley Sánchez MD - Last Filed: 05/31/24 06:03> Differential Diagnosis Differential diagnosis: Likely acute psychosis, suicidal ideation, bipolar disorder, depression, drug-induced psychotic disorder and acute anxiety <Summer Mistry APRN - Last Filed: 05/30/24 19:45> Lab Data Attestation: I reviewed the patient's lab results. <Summer Mistry APRN - Last Filed: 05/30/24 19:45> Result diagrams: 05/30/24 17:43 05/30/24 17:43 <Summer Mistry APRN - Last Filed: 05/30/24 19:45> Labs: Lab Results 05/30/24 05/30/24 05/31/24 Range/Units 17:43 17:53 03:10 WBC 4.2 L (4.5-10.0) K/mm3 RBC 4.00 L (4.2-5.4) M/mm3 Hgb 12.8 (12.0-15.0) g/dL Hct 38.4 (37.0-47.0) % MCV 96.0 (80-100) fl MCH 32.0 (26-34) pg MCHC 33.3 (32-36) g/dl RDW 13.5 (11.5-14.5) % Plt Count 118 L (150-375) k/mm3 MPV 11.5 H (7.4-10.4) fl Immature Gran % (Auto) 0.2 (0-0.5) % Neut % (Auto) 40.5 L (45.5-73.1) % Lymph % (Auto) 47.2 H (18.3-44.2) % Garrett % (Auto) 8.8 H (2.6-8.5) % Eos % (Auto) 2.1 (0-4.4) % Baso % (Auto) 1.2 (0.2-1.2) % Lymph # (Auto) 1.99 (0.9-3.2) K/mm3 Garrett # (Auto) 0.4 (0.1-0.6) K/mm3 Eos # (Auto) 0.1 (0-0.3) K/mm3 Baso # (Auto) 0.1 (0.0-0.1) K/mm3 Abs Immat Gran (auto) 0.01 (0.00-0.031) K/mm3 Absolute Neuts (auto) 1.7 (1.3-6.7) K/mm3 Absolute Nucleated RBC 0.000 (0.0-0.012) K/mm3 Nucleated RBC % 0.0 (0.0-0.2) % % Immature Plt Fraction 8.2 (0.9-11.2) % Sodium 146 H (137-145) mmol/L Potassium 4.1 (3.4-5.0) mmol/L Chloride 107 (98-107) mmol/L Carbon Dioxide 25 (22-30) mmol/L Anion Gap 14 H (4-12) mmol/L BUN 15 D (7-17) mg/dL Creatinine 0.69 L (0.7-1.0) mg/dL Estim Creat Clear Calc Not Reportable Estimated GFR > 60 (59 - ) Glucose 90 (65-110) mg/dL Calcium 9.8 (8.4-10.2) mg/dL Total Bilirubin 0.5 (0.2-1.3) mg/dL AST 45 H (14-36) U/L ALT 33 (6-35) U/L Alkaline Phosphatase 133 H (38-126) U/L Total Protein 8.0 (6.3-8.2) g/dL Albumin 4.8 (3.5-5.1) g/dL TSH (Reflex) 1.110 (0.465-4.68) uIU/mL Urine Color Yellow (Yellow) Urine Appearance Cloudy H (Clear) Urine pH 5.5 (5.0-9.0) Ur Specific [place] 1.005 (1.001-1.035) Urine Protein Negative (Negative) mg/dL Urine Glucose (UA) Negative (Negative) mg/dL Urine Ketones Negative (Negative) mg/dL Ur Blood (Man) 2+ H (Negative) Urine Nitrate Negative (Negative) Urine Bilirubin Negative (Negative) Urine Urobilinogen 0.2 (<2.0) mg/dL Leukocyte Esterase Rfl 3+ H (Negative) SOULEYMANE/UL Urine RBC 3-5 H (0-2) /hpf Urine WBC 51-100 H (0-3) /hpf Ur Squamous Epith Cells Occasional (Few) /hpf Urine Bacteria Rare /hpf Urine Casts 0-2 Urine Opiates Screen Negative (Negative) Urine Methadone Screen Negative (Negative) Ur Barbiturates Screen Negative (Negative) Ur Phencyclidine Scrn Negative (Negative) Ur Amphetamine Screen Negative (Negative) U Benzodiazepines Scrn Positive A (Negative) Urine Cocaine Screen Negative (Negative) U Cannabinoids Screen Negative (Negative) Ethyl Alcohol 220 23 (<10) mg/dL SARS-CoV-2 RNA (RT-PCR) Negative (Negative) <Summer Mistry, LEAD PYTHON DEVELOPER - Last Filed: 05/30/24 19:45> Lab Results 05/30/24 05/30/24 05/31/24 Range/Units 17:43 17:53 03:10 WBC 4.2 L (4.5-10.0) K/mm3 RBC 4.00 L (4.2-5.4) M/mm3 Hgb 12.8 (12.0-15.0) g/dL Hct 38.4 (37.0-47.0) % MCV 96.0 (80-100) fl MCH 32.0 (26-34) pg MCHC 33.3 (32-36) g/dl RDW 13.5 (11.5-14.5) % Plt Count 118 L (150-375) k/mm3 MPV 11.5 H (7.4-10.4) fl Immature Gran % (Auto) 0.2 (0-0.5) % Neut % (Auto) 40.5 L (45.5-73.1) % Lymph % (Auto) 47.2 H (18.3-44.2) % Garrett % (Auto) 8.8 H (2.6-8.5) % Eos % (Auto) 2.1 (0-4.4) % Baso % (Auto) 1.2 (0.2-1.2) % Lymph # (Auto) 1.99 (0.9-3.2) K/mm3 Garrett # (Auto) 0.4 (0.1-0.6) K/mm3 Eos # (Auto) 0.1 (0-0.3) K/mm3 Baso # (Auto) 0.1 (0.0-0.1) K/mm3 Abs Immat Gran (auto) 0.01 (0.00-0.031) K/mm3 Absolute Neuts (auto) 1.7 (1.3-6.7) K/mm3 Absolute Nucleated RBC 0.000 (0.0-0.012) K/mm3 Nucleated RBC % 0.0 (0.0-0.2) % % Immature Plt Fraction 8.2 (0.9-11.2) % Sodium 146 H (137-145) mmol/L Potassium 4.1 (3.4-5.0) mmol/L Chloride 107 (98-107) mmol/L Carbon Dioxide 25 (22-30) mmol/L Anion Gap 14 H (4-12) mmol/L BUN 15 D (7-17) mg/dL Creatinine 0.69 L (0.7-1.0) mg/dL Estim Creat Clear Calc Not Reportable Estimated GFR > 60 (59 - ) Glucose 90 (65-110) mg/dL Calcium 9.8 (8.4-10.2) mg/dL Total Bilirubin 0.5 (0.2-1.3) mg/dL AST 45 H (14-36) U/L ALT 33 (6-35) U/L Alkaline Phosphatase 133 H (38-126) U/L Total Protein 8.0 (6.3-8.2) g/dL Albumin 4.8 (3.5-5.1) g/dL TSH (Reflex) 1.110 (0.465-4.68) uIU/mL Urine Color Yellow (Yellow) Urine Appearance Cloudy H (Clear) Urine pH 5.5 (5.0-9.0) Ur Specific [place] 1.005 (1.001-1.035) Urine Protein Negative (Negative) mg/dL Urine Glucose (UA) Negative (Negative) mg/dL Urine Ketones Negative (Negative) mg/dL Ur Blood (Man) 2+ H (Negative) Urine Nitrate Negative (Negative) Urine Bilirubin Negative (Negative) Urine Urobilinogen 0.2 (<2.0) mg/dL Leukocyte Esterase Rfl 3+ H (Negative) SOULEYMANE/UL Urine RBC 3-5 H (0-2) /hpf Urine WBC 51-100 H (0-3) /hpf Ur Squamous Epith Cells Occasional (Few) /hpf Urine Bacteria Rare /hpf Urine Casts 0-2 Urine Opiates Screen Negative (Negative) Urine Methadone Screen Negative (Negative) Ur Barbiturates Screen Negative (Negative) Ur Phencyclidine Scrn Negative (Negative) Ur Amphetamine Screen Negative (Negative) U Benzodiazepines Scrn Positive A (Negative) Urine Cocaine Screen Negative (Negative) U Cannabinoids Screen Negative (Negative) Ethyl Alcohol 220 23 (<10) mg/dL SARS-CoV-2 RNA (RT-PCR) Negative (Negative) <Whitley Sánchez MD - Last Filed: 05/31/24 06:03> Discharge Plan Discharge Clinical Impression: Alcohol abuse, UTI (urinary tract infection) <Summer Mistry APRN - Last Filed: 05/30/24 19:45> Patient Disposition: Home, Self-Care <Summer iMstry APRN - Last Filed: 05/30/24 19:45> Condition: Improved <Summer Mistry APRN - Last Filed: 05/30/24 19:45> Instructions: Antibiotic Form, Urinary Tract Infection in Women (DC), Abuse of Alcohol (ED) <Summer Mistry APRN - Last Filed: 05/30/24 19:45> Additional Instructions: Please use the resources in safety plan provided to you by our psychiatric team. Your urinalysis did reveal UTI and a script was sent to your pharmacy for an antibiotic to take twice a day for the next 5 days. Return to the ED if any new or worsening symptoms develop. Follow-up with your family doctor within the next 3-5 days. <Summer Mistry APRN - Last Filed: 05/30/24 19:45> Patient Language: Liberian <Summer Mistry APRN - Last Filed: 05/30/24 19:45> Prescriptions: New nitrofurantoin monohyd/m-cryst [Macrobid] 100 mg capsule 100 mg PO Q12H 5 Days Qty: 10 0RF Rx Instructions: must administer with a meal/food No Action atorvastatin 80 mg tablet 80 mg PO DAILY folic acid 1 mg tablet 1 mg PO DAILY clobetasol 0.05 % ointment 1 applic TOPICAL TID Rx Instructions: ARMS AND LEGS losartan 100 mg tablet 100 mg PO DAILY aspirin 81 mg Tablet 81 mg PO DAILY famotidine 20 mg Tablet 20 mg PO DAILY halobetasol propionate 0.05 % Ointment 1 applic TOPICAL TID Rx Instructions: extremeties mupirocin 2 % Ointment 1 applic TOPICAL TID Rx Instructions: extremeties cefuroxime axetil 250 mg Tablet 500 mg PO Q12HR 3 Days Qty: 6 0RF metronidazole 500 mg Tablet 500 mg PO Q8HR 3 Days Qty: 9 0RF hydrocodone-acetaminophen 5-325 mg tablet 1 tablet PO Q4-6H PRN (Reason: pain) Qty: 10 0RF <Summer Mistry APRN - Last Filed: 05/30/24 19:45> Follow-up/Referrals: Obdulio,Vince Leo MD [Primary Care Provider] - 3 Days <Summer Mistry APRN - Last Filed: 05/30/24 19:45> Time of Disposition: 06:01 <Summer Mistry APRN - Last Filed: 05/30/24 19:45> 06:01 <Whitley Sánchez MD - Last Filed: 05/31/24 06:03>
--- OUTSIDE RECORDS SUMMARY | 2024-05-30 17:29 | XMS_ITS | Patient Health Record ---
Author Organization [facility] Address [address] [place] [address] Care Team Providers Care Senior Security Analyst Name Role Phone Oli Michaels Primary Care Provider Allergies Allergen (clinical drug ingredient) Drug/Non Drug Allergy documented on EMR Reaction Allergy Type Onset Date Status Penicillin hives Drug Allergy Active Substance with sulfonamide structure and antibacterial mechanism of action (substance) Sulfa Antibiotics hives Drug Allergy Active Reason For Referral No Information Medications Medication SIG (Take, Route, Frequency, Duration) Notes Start Date End Date Status Escitalopram Oxalate 10 MG 1 tablet Oral ly Once a day for 30 day(s) Active Famotidine 20 MG 1 tablet as needed O rally 4 times per day Active Losartan Potassium 100 MG 1 tablet Orall y Once a day Active Gabapentin 100 MG 1 capsule Orally Onc e a day Active Vivitrol 380 MG as directed Intramus cular every 28 days 11/01/2022 Active chlordiazePOXIDE HCl 10 MG 1 capsule as needed for anxiety Orally three times per day Active Social History Tobacco Use: Social History Observation Description Date Details (start date - stop date) Never Smoker NA - NA Sex Assigned At : Social History Observation Description Sex Assigned At Female Dont use, Tobacco Use/Smoking Question Answer Notes Are you a nonsmoker Problems Problem Type SNOMED Code ICD Code Onset Dates Problem Status W/U Status Risk Notes Problem Disorder caused by alcohol (disorder) (729259800) Alcohol use disorder (F10.99) Active confirmed Plan Of Treatment No Information Insurance Providers Payer Name Payer Address Payer Phone Subscriber Number Group Number Insured Name Patient Relationship to Insured Coverage Start Date Coverage End Date [address] [phone] [id number] Zuleyka Beaver Self - patient is the insured 3 Medications Administered Medication Instructions Date of Administration Dosage Notes Vivitrol 11/01/2022 380 mg Medical (General) History Medical History History ICD Code HTN Mild CVA AUD Surgical History Surgery Date(Month/Year) section 1988 Hospitalization History Reason Date(Month/Year) CVA [facility] 09/2022 [facility] detox ETOH 09/2022 Concussion [facility] 2021
--- OUTSIDE RECORDS SUMMARY | 2024-05-30 17:29 | XMS_ITS | Clinical Summary ---
Author Organization [facility] Address [address] [place] [address] Phone Care Team Providers Care Almond Cutting Machine Tender Name Role Phone Sindhu Duarte Primary Care Provider + Allergies Active Allergy Reactions Criticality Noted Date Comments Penicillins Hives 02/21/2023 Sulfa Antibiotics Hives 02/21/2023 Medications * This document contains information received from the source organization and may not represent a complete record from that organization. LORazepam (ATIVAN) 0.5 MG TabletIndications :Alcohol withdrawal syndrome without complication (HCC) Take 1 Tablet by mouth every 6 hours as needed for Anxiety or Withdrawal. 50 Tablet 3 Active metoprolol Succinate (TOPROL-XL) 25 MG TABLET SR 24 HR Take 1 Tablet by mouth daily. 90 Tablet 3 Active folic acid (FOLVITE) 1 MG Tablet Take 1 Tablet by mouth daily. 30 Tablet 3 Active losartan (COZAAR) 100 MG Tablet Take 1 Tablet by mouth daily. 90 Tablet 3 Active Active Problems Problem Noted Date Diagnosed Date Alcohol withdrawal 02/21/2023 Hypomagnesemia 02/21/2023 Hypertension 02/21/2023 Social History Tobacco Use Types Packs/Day Years Used Date Smoking Tobacco: Never Smokeless Tobacco: Never Tobacco Cessation:Counseling Given: Not Answered Alcohol Use Standard Drinks/Week Comments Yes 0 (1 standard drink = 0.6 oz pur e alcohol) 5th/week Sexually Active Control Partners Comments Yes Female, Male Comments No Sex and Gender Information Value Date Recorded Sex Assigned at Not on file Legal Sex Female 3:38 PM CDT Gender Identity Not on file Sexual Orientation Not on file Last Filed Vital Signs Vital Sign Reading Time Taken Comments Blood Pressure 155/80 02/24/2023 8:00 AM FULFILLMENT SPECIALIST Pulse 58 02/24/2023 8:00 AM FULFILLMENT SPECIALIST Temperature 36.9 C (98.4 F) 02/24/2023 8:00 AM FULFILLMENT SPECIALIST Respiratory Rate 16 02/24/2023 8:00 AM FULFILLMENT SPECIALIST Oxygen Saturation 98% 02/24/2023 8:00 AM FULFILLMENT SPECIALIST Inhaled Oxygen Concentration - - Weight 63.5 kg (140 lb) 02/21/2023 2:21 PM FULFILLMENT SPECIALIST Height 167.6 cm (5' 6 ) 02/21/2023 2:21 PM FULFILLMENT SPECIALIST Body Mass Index 22.6 02/21/2023 2:21 PM FULFILLMENT SPECIALIST Plan of Treatment Health Maintenance Due Date Last Done Comments Hepatitis C Virus (HCV) Screening 1965 TdaP Immunization 1965 Hepatitis B Immunization (1 of 3 - 19+ 3-dose series) 10/05/1983 Pap Smear 1985 Cervical Cancer Screening (CCS) 1994 HPV/Cotest 1994 Colonoscopy 2009 Colorectal Cancer Screening 2009 Cologuard 2014 Immunochemical Fecal Occult Blood 2014 Mammogram 2014 Pneumococcal Immunization (50+ years) (1 of 1 - PCV) 2014 Zoster Immunization (2 of 2) 12/19/2022 10/24/2022 Influenza Immunization (#1) 12/10/202301/08, 12/02/2019, 01/15/2017, Additional history exists SARS-COV-2 Immunization ( season) 2023 02/01/2021, 08/01/2020, 07/07/2020 Respiratory Syncytial Virus (RSV) Immunization (Adult) (1 - 1-dose 75+ series) 10/05/2039 Meningococcal Immunization (ACWY) Aged Out No longer eligible based on patient's age to complete this topic Pneumococcal Immunization Combined Aged Out No longer eligible based on patient's age to complete this topic Rotavirus Immunization Aged Out No lo nger eligible based on patient's age to complete this topic Insurance MEDICAID [place] Advance Directives * Full Code (Latest Code Status on File) Date Activated Date Inactivated Comments 02/21/2023 2:20 PM 02/24/2023 2:21 PM CPR-Full T reatment: FULL ARREST: Attempt Resuscitation/CPR wit intubation and mechanical ventilation. PRE-ARREST: Use entire range of life support measures to stabilize the patient. Care Teams Almond Cutting Machine Tender Relationship Specialty Start Date End Date Sindhu Duarte PAC [facility] [place] [address] PCP - General Physician Timber Bucker 02/21/23
[2024-05-30 18:04] LABS: Add Urine Microscopic? YES; Appearance Urine Cloudy (Clear); Bacteria Urine Rare /hpf; Bilirubin Urine Negative (Negative); Blood Urine 2+ (Negative); Color Urine Yellow (Yellow); Glucose Urine UA Negative (Negative); Ketones Urine Negative (Negative); Leukocyte Esterase Ur 3+ LEU/UL (Negative); Nitrate Urine Negative (Negative); Non Pathogenic Casts 0-2; Protein Urine Negative (Negative); Specific Grav Ur 1.005 (1.001-1.035); Squamous Epithelial Cell Urine Occasional /hpf (Few); Urobilinogen Urine 0.2 mg/dL (<2.0); WBC Urine 51-100 /hpf (0-3); pH Urine 5.5 (5.0-9.0)
[2024-05-30 18:05] LABS: Basophils Absolute Auto 0.1 K/mm3 (0.0-0.1); Basophils Percent Auto 1.2 % (0.2-1.2); Eosinophils Absolute Auto 0.1 K/mm3 (0-0.3); Eosinophils Percent Auto 2.1 % (0-4.4); Hematocrit 38.4 % (37.0-47.0); Hemoglobin 12.8 g/dL (12.0-15.0); Immature Granulocyte Absolute 0.01 K/mm3 (0.00-0.031); Immature Granulocyte Percent A 0.2 % (0-0.5); Immature Platelet Fraction Pct 8.2 % (0.9-11.2); Lymphocytes Absolute Auto 1.99 K/mm3 (0.9-3.2); Lymphocytes Percent Auto 47.2 % (18.3-44.2); Mean Corpuscular HGB Conc 33.3 g/dl (32-36); Mean Platelet Volume 11.5 fl (7.4-10.4); Monocytes Absolute Auto 0.4 K/mm3 (0.1-0.6); Monocytes Percent Auto 8.8 % (2.6-8.5); Neutrophils Absolute Auto 1.7 K/mm3 (1.3-6.7); Neutrophils Percent Auto 40.5 % (45.5-73.1); Platelet Count Result 118 k/mm3 (150-375); Red Cell Distribution Width 13.5 % (11.5-14.5); White Blood Count 4.2 K/mm3 (4.5-10.0)
[2024-05-30 18:14] LABS: Amphetamine Screen Urine Negative (Negative); Barbiturate Screen Urine Negative (Negative); Benzodiazepines Screen Urine Positive (Negative); Cannabinoid Screen Urine Negative (Negative); Cocaine Screen Urine Negative (Negative); Methadone Screen Urine Negative (Negative); Opiate Screen Urine Negative (Negative); Phencyclidine Screen Urine Negative (Negative)
[2024-05-30 18:15] LABS: Alanine Aminotransferase 33 U/L (6-35); Albumin Level 4.8 g/dL (3.5-5.1); Alkaline Phosphatase 133 U/L (38-126); Anion Gap 14 mmol/L (4-12); Aspartate Amino Transferase 45 U/L (14-36); Bilirubin,Total 0.5 mg/dL (0.2-1.3); Blood Urea Nitrogen 15 mg/dL (7-17); Calcium 9.8 mg/dL (8.4-10.2); Carbon Dioxide 25 mmol/L (22-30); Chloride 107 mmol/L (98-107); Estimated Glomerular Filt Rate > 60; Glucose 90 mg/dL (65-110); Potassium 4.1 mmol/L (3.4-5.0); Sodium 146 mmol/L (137-145)
[2024-05-30 18:23] LABS: Ethanol 220 mg/dL (<10)
[2024-05-30] MEDS: PHENAZOPYRIDINE HCL 100 MG TABLET PO (19:04)
[2024-05-30] MEDS: NITROFURANTOIN MONOHYD MACROCR 100 MG CAP PO (19:05)
[2024-05-30 19:30] LABS: SARS-CoV-2 RNA PCR Negative (Negative)
--- NOTE | 2024-05-30 19:55 | PC.NURSE ---
Pt declined Tylenol and Ibuprofen and stated that she doesn't want any pain medication unless it is a narcotic.
--- NOTE | 2024-05-31 04:24 | PC.NURSE ---
Pt rested through majority of night with no issue. Pt is now awake a&ox4. Blood alcohol is 23. Pt denies all SI, HI.
[2024-05-31 04:28] VITALS: BP 131/82; PULSE 81; RESP 18; TEMP 36.4; O2SAT 100
[2024-05-31 05:08] LABS: Ethanol 23 mg/dL (<10)
== END 2024-05-31 07:26 | disposition home or self-care (01) ==
PROVIDERS: Physician Assistant; Registered Nurse; Emergency Provider Emergency Medicine; PCP Internal Medicine Gastroenterology
DX: F10.20 Alcohol dependence, uncomplicated (principal); Y90.7 Blood alcohol level of 200-239 mg/100 ml; N39.0 Urinary tract infection, site not specified; Z86.73 Personal history of transient ischemic attack (TIA), and cerebral infarction without residual deficits; I10 Essential (primary) hypertension; E78.5 Hyperlipidemia, unspecified; K21.9 Gastro-esophageal reflux disease without esophagitis; F41.8 Other specified anxiety disorders; Z20.822 Contact with and (suspected) exposure to COVID-19
CPT/HCPCS: 36415; 80053; 80307; 81001; 82077; 84443; 85025; 85055; 87086; 87635; 99284; A9270

== ENCOUNTER 2024-09-10 18:29 | Emergency (ER) | payer OTHER, SELFPAY ==
--- NOTE | ~2024-09-10 | CT_ITS ---
CT cervical spine wo con Ordering provider: Becky North PA-C History: . fall, hi . Comparison: None. Technique: CT of the cervical spine was performed without contrast. Sagittal and coronal reformatted images were also obtained and reviewed. Automated exposure control and iterative reconstruction oxana hnique were employed. The dose-length product was 168.88 mGy-cm. FINDINGS: Motion artifact degrading the images. VERTEBRAE: Double images are seen at the level of C5-C6 most likely due to motion artifact. Minimal r etrolisthesis cannot be excluded although less likely. Otherwise, No subluxation or acute fracture. T he occipital condyles are intact. 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 DISC SPACES: Narrowing of the disc C3-C4 and C5-C6. Multilevel facet joint disease. Multilevel uncove rtebral joint osteoarthritic changes. PARASPINOUS SOFT TISSUES: Normal. IMPRESSION: Motion artifacts degraded the images. No definite acute osseous abnormality cervical spine. Possible minimal retrolisthesis at the level of C5-C6. Multilevel degenerative disc disease. Reviewed, dictated and finalized at location A.
--- NOTE | ~2024-09-10 | CT_ITS ---
CT brain wo con Ordering provider: Becky North PA-C History: 58 years Female with . fall, hi . Comparison: None. Technique: CT of the head without contrast. Radiation reduction technique utilized.The dose-length pr oduct was 681 mGy-cm. FINDINGS: BRAIN PARENCHYMA AND CSF SPACES: Mild leukoaraiosis and diffuse cortical atrophy. Mild atheromatous d isease. No midline shift, mass effect or hemorrhage. The brain parenchyma and CSF spaces are otherwi se normal. VISUALIZED PARANASAL SINUSES: Right maxillary sinus disease. Dental cares seen in the right upper jaw posteriorly. MASTOIDS: Well aerated. BONES: The bones appear intact. SOFT TISSUES: Visualized nasopharynx is normal. Superficial soft tissues are normal. IMPRESSION: No acute intracranial findings. Reviewed, dictated and finalized at location A.
[2024-09-10 18:24] VITALS: BP 124/100; PULSE 87; RESP 16; TEMP 36.4; O2SAT 97
[2024-09-10 18:27] VITALS: BP 124/100; PULSE 87; RESP 16; TEMP 36.4; O2SAT 97
--- OUTSIDE RECORDS SUMMARY | 2024-09-10 18:57 | XMS_ITS | Clinical Summary ---
Author Organization [facility] Address [address] [place] [address] Phone Care Team Providers Care Accountant Clerk Name Role Phone Sindhu Duarte Primary Care [...] Comments Blood Pressure 155/80 02/24/2023 8:00 AM NURSING UNIT COORDINATOR Pulse 58 02/24/2023 8:00 AM NURSING UNIT COORDINATOR Temperature 36.9 C (98.4 F) 02/24/2023 8:00 AM NURSING UNIT COORDINATOR Respiratory Rate 16 02/24/2023 8:00 AM NURSING UNIT COORDINATOR Oxygen Saturation 98% 02/24/2023 8:00 AM NURSING UNIT COORDINATOR Inhaled Oxygen Concentration - - Weight 63.5 kg (140 lb) 02/21/2023 2:21 PM NURSING UNIT COORDINATOR Height 167.6 cm (5' 6) 02/21/2023 2:21 PM NURSING UNIT COORDINATOR Body Mass Index 22.6 02/21/2023 2:21 PM NURSING UNIT COORDINATOR Plan of Treatment Health Maintenance Due Date Last Done Comments Hepatitis C Virus (HCV) Screening 1964 Mammogram 1964 TdaP Immunization 1964 Hepatitis B Immunization (1 of 3 - 19+ 3-dose series) 10/05/1983 Pap Smear 1985 Cervical Cancer Screening (CCS) 1994 HPV/Cotest 1994 Colonoscopy 2009 Colorectal Cancer Screening 2009 Cologuard 2014 Immunochemical Fecal Occult Blood 2014 Pneumococcal Immunization (50+ years) (1 of [...] measures to stabilize the patient. Care Teams Accountant Clerk Relationship Specialty Start Date End Date Sindhu Duarte PAC [address] [place] [id number] PCP - General Physician Hearing Aid Dispenser 02/21/23
--- OUTSIDE RECORDS SUMMARY | 2024-09-10 18:58 | XMS_ITS | CONTINUITY OF CARE DOCUMENT ---
Author Name [email or web address] Address Unknown Organization [facility] [address] [address] Address [address] [address] [address] [place] [address] Phone [phone] Care Team Providers Care Agriculture Scientist Name Role Phone Tim AG, Melina Unavailable [phone] MARIBELL GARCIA MD Unavailable MARIBELL GARCIA MD Unavailable [phone] INSURANCE PROVIDERS Payer name Policy type / Coverage type [place] red libertarian [place] MED[place] Medicaid [id number]
--- OUTSIDE RECORDS SUMMARY | 2024-09-10 18:58 | XMS_ITS | Patient Health Record ---
Author Organization [facility] Address [address] [place] [address] Care Team Providers Care Clock Repairer Name Role Phone Oli Michaels Primary Care Provider [phone] Allergies Allergen (clinical drug ingredient) Drug/Non Drug [...] Problem Status W/U Status Risk Notes Problem Alcohol use disorder (7678420595) Alcohol use disorder (F10.99) Active confirmed Plan Of Treatment No Information Insurance Providers Payer Name Payer Address Payer Phone Subscriber Number Group Number Insured Name Patient Relationship to Insured Coverage Start Date Coverage End Date [address] [phone] [id number] Schillin chalino, Zuleyka Self - patient is the insured 3 Medications Administered Medication Instructions Date of Administration Dosage Notes Vivitrol 11/01/2022 380 mg Medical (General) History Medical History History ICD Code HTN Mild CVA AUD Surgical History Surgery Date(Month/Year) section 1988 Hospitalization History Reason Date(Month/Year) CVA [facility] 09/2022 [facility] detox [facility]TO[facility] 09/2022 Concussion [facility] 2021
[2024-09-10 19:26] LABS: Basophils Absolute Auto 0.1 K/mm3 (0.0-0.1); Basophils Percent Auto 1.1 % (0.2-1.2); Eosinophils Absolute Auto 0.1 K/mm3 (0-0.3); Eosinophils Percent Auto 1.1 % (0-4.4); Hemoglobin 14.1 g/dL (12.0-15.0); Immature Granulocyte Absolute 0.02 K/mm3 (0.00-0.031); Immature Granulocyte Percent A 0.3 % (0-0.5); Lymphocytes Absolute Auto 2.46 K/mm3 (0.9-3.2); Lymphocytes Percent Auto 38.9 % (18.3-44.2); Mean Corpuscular HGB Conc 32.8 g/dl (32-36); Mean Corpuscular Hemoglobin 30.6 pg (26-34); Mean Corpuscular Volume 93.3 fl (80-100); Mean Platelet Volume 10.7 fl (7.4-10.4); Monocytes Absolute Auto 0.4 K/mm3 (0.1-0.6); Monocytes Percent Auto 6.6 % (2.6-8.5); Neutrophils Absolute Auto 3.3 K/mm3 (1.3-6.7); Platelet Count Result 227 k/mm3 (150-375); Red Blood Count 4.61 M/mm3 (4.2-5.4); Red Cell Distribution Width 13.5 % (11.5-14.5); White Blood Count 6.3 K/mm3 (4.5-10.0)
[2024-09-10 19:37] LABS: Acetaminophen < 10 ug/mL (10-30); Alanine Aminotransferase 40 U/L (6-35); Albumin Level 4.9 g/dL (3.5-5.1); Alkaline Phosphatase 101 U/L (38-126); Anion Gap 16 mmol/L (4-12); Aspartate Amino Transferase 45 U/L (14-36); Bilirubin,Total 0.4 mg/dL (0.2-1.3); Blood Urea Nitrogen 15 mg/dL (7-17); Calcium 9.6 mg/dL (8.4-10.2); Carbon Dioxide 25 mmol/L (22-30); Chloride 110 mmol/L (98-107); Estimated Glomerular Filt Rate 57; Glucose 107 mg/dL (65-110); Potassium 4.3 mmol/L (3.4-5.0); Salicylate < 1.0 mg/dL (2-20); Sodium 151 mmol/L (137-145); Total Protein 8.5 g/dL (6.3-8.2)
[2024-09-10 19:43] LABS: Amphetamine Screen Urine Negative (Negative); Barbiturate Screen Urine Negative (Negative); Benzodiazepines Screen Urine Negative (Negative); Cannabinoid Screen Urine Negative (Negative); Cocaine Screen Urine Negative (Negative); Methadone Screen Urine Negative (Negative); Opiate Screen Urine Negative (Negative); Phencyclidine Screen Urine Negative (Negative)
--- NOTE | 2024-09-10 19:48 | ED_ITS ---
HPI - Psych General Chief Complaint: Psychiatric Symptoms <RENE Myers Last Filed: 09/11/24 01:52> Stated Complaint: SI/Intoxicated <RENE Myers Last Filed: 09/11/24 01:52> Time Seen by Provider: 09/10/24 18:41 <RENE Myers Last Filed: 09/11/24 01:52> Source: patient <RENE Myers Last Filed: 09/11/24 01:52> Mode of arrival: EMS <RENE Myers Last Filed: 09/11/24 01:52> Limitations: altered mental status and intoxication <RENE Myers Last Filed: 09/11/24 01:52> History of Present Illness HPI Narrative: Patient is a 58-year-old female who presents the ED via EMS wih report of SI. Patient presented to [place] [facility] visibly intoxicated and making suicidal comments. She admitted to drinking at least a pt of alcohol today. Was brought to the ED for further evaluation. Patient unwilling to provide any further information to me. She does admit to wanting to kill herself today, but states she would never actually go through with it. When asked how long she has had these thoughts, she asked me how old she was. Does report history of previous suicide attempts. Denies attempting anything today. When attempting to provide a urine sample, patient was found on the ground in the bathroom. Did. She had fallen. She was unable to provide any further information about what happened. Denies pain. No obvious injuries. <RENE Myers Last Filed: 09/11/24 01:52> Related Data Home Medications: Home Medications ?Medication ?Instructions ?Recorded ?Confirmed ?Last Taken ?Type atorvastatin 80 mg tablet 80 mg PO DAILY 10/30/23 01/31/24 Unknown History clobetasol 0.05 % topical ointment 1 applic topical TID psoriasis 10/30/23 01/31/24 Unknown History folic acid 1 mg tablet 1 mg PO DAILY 10/30/23 01/31/24 Unknown History losartan 100 mg tablet 100 mg PO DAILY 10/30/23 01/31/24 Unknown History aspirin 81 mg tablet 81 mg PO DAILY 10/31/23 01/31/24 Unknown History famotidine 20 mg tablet 20 mg PO DAILY 01/31/24 01/31/24 Unknown History halobetasol propionate 0.05 % 1 applic topical TID psoriasis 01/31/24 01/31/24 Unknown History topical ointment mupirocin 2 % topical ointment 1 applic topical TID psoriasis 01/31/24 01/31/24 Unknown History <Becky North PA-C - Last Filed: 09/11/24 01:52> Allergies/Adverse Reactions: Allergies Allergy/AdvReac Type Severity Reaction Status Date / Time Penicillins Allergy Severe HIVES Verified 02/05/24 09:24 Sulfa (Sulfonamide Allergy Severe HIVES Verified 09/11/24 09:44 Antibiotics) <Becky North PA-C - Last Filed: 09/11/24 01:52> Review of Systems 2 Review of Systems: All systems reviewed & are unremarkable except as noted in HPI. <Becky North PA-C - Last Filed: 09/11/24 01:52> All systems reviewed & are unremarkable except as noted in HPI and below < Becky North PA-C - Last Filed: 09/11/24 01:52> [facility] Past Medical History Medical History: Medical History Nausea and vomiting in adult RUQ pain Elevated liver enzymes History of substance abuse Anxiety and depression Psoriasis Thyroid nodule Gout Essential hypertension Hyperlipidemia CVA (cerebral vascular accident) (2022) TIA (transient ischemic attack) October 2023 GERD (gastroesophageal reflux disease) With CT evidence of esophagitis and gastritis noted 10/10/2019 <Becky North PA-C - Last Filed: 09/11/24 01:52> Surgical History Surgical History: Surgical History History of History of endometrial ablation (2010) <Becky North PA-C - Last Filed: 09/11/24 01:52> Family History Family History: Family History Sibling Colon cancer Hypertension Other No problems noted. Mother Hypertension Other Acute myocardial infarction <Becky North PA-C - Last Filed: 09/11/24 01:52> Social History Social History: Social History Social History: The patient lives alone. She has 1 son but she is estranged from her son. She has 4 cats. She is a recovering alcoholic. She states that she has drink up to a pint of vodka a day. She used to use cocaine but has not done so in 20 years. She denies history of tobacco use. She does have heavy secondhand smoke exposure and her clothes in belongings smell of smoke. Code status: DNR/DNI per patient request. Nursing staff was at bedside and witnessed discussion of code status and plan of care with patient. Surrogate decision maker: Tory Strauss (friend) Smoking status: Never smoker Alcohol intake: current Drinks per week: 2 Alcohol use details: One pint of alcohol a day. Substance use: current Substance use type: marijuana Do You Feel Safe in your Home?: No Lack of Transportation: No Lack of Food: Never True Current Housing: I Do Not Have Housing Concerned About Future Housing: No Difficulty Paying Gas/Electric Bills: YES Difficulty Paying for Meds: YES Currently Unemployed: No Education: High School Diploma/GED Difficulty w/ Childcare or Family Care: No Spiritual care concerns: No <Becky North PA-C - Last Filed: 09/11/24 01:52> Exam 2 Narrative: GENERAL: Intoxicated appearing, thin, non-toxic, in no acute distress. HEAD: Normocephalic, atraumatic. RESPIRATORY: Airway patent, respirations nonlabored. CARDIOVASCULAR: Regular rate and rhythm MUSCULOSKELETAL: Moves all extremities. No gross deformities. SKIN: Warm, dry, normal color. NEURO: A&O X3. Speech clear. Cranial nerves II-XII grossly intact. Steady gait. No ataxic movements. PSYCHIATRIC: Depressed mood, labile mood, intermittently tearful. Normal interaction. <Becky North PA-C - Last Filed: 09/11/24 01:52> Course Course Emergency Course: Signed out to me overnight. Patient intermittently out of her room. She does endorse being nauseated and goes to the bathroom several times. Ondansetron given. She reports being very anxious and oral Ativan is given. Repeat ethanol still shows a level greater than 100. Repeat Timed for 0800 and patient signed out to oncoming ED attending pending repeat lab draw and re- assessment. <Yaneth Walters MD - Last Filed: 09/11/24 06:55> Reevaluation(s) Reevaluation #1: Signed out to me pending sobriety and evaluation by crisis. She is no longer suicidal at this time. Medically cleared for psychiatric evaluation. She has been evaluated by crisis services and they do feel she can go home at this time, return precautions provided as well as resources. <Karen Hollis MD - Last Filed: 09/11/24 11:10> Vital Signs Vital signs: Vital Signs Temperature 97.6 F 09/10/24 18:24 Pulse Rate 87 09/10/24 18:24 Respiratory Rate 16 09/10/24 18:24 Blood Pressure 124/100 H 09/10/24 18:24 Pulse Oximetry 97 09/10/24 18:24 Temperature 97.9 F 09/11/24 08:15 Pulse Rate 93 09/11/24 08:15 Respiratory Rate 20 09/11/24 08:15 Blood Pressure 120/89 09/11/24 08:15 Pulse Oximetry 100 09/11/24 08:15 Oxygen Delivery Room Air 09/10/24 18:27 <Becky North PA-C - Last Filed: 09/11/24 01:52> Vital Signs Temperature 97.6 F 09/10/24 18:24 Pulse Rate 87 09/10/24 18:24 Respiratory Rate 16 09/10/24 18:24 Blood Pressure 124/100 H 09/10/24 18:24 Pulse Oximetry 97 09/10/24 18:24 Temperature 97.9 F 09/11/24 08:15 Pulse Rate 93 09/11/24 08:15 Respiratory Rate 20 09/11/24 08:15 Blood Pressure 120/89 09/11/24 08:15 Pulse Oximetry 100 09/11/24 08:15 Oxygen Delivery Room Air 09/10/24 18:27 <Yaneth Walters MD - Last Filed: 09/11/24 06:55> Vital Signs Temperature 97.6 F 09/10/24 18:24 Pulse Rate 87 09/10/24 18:24 Respiratory Rate 16 09/10/24 18:24 Blood Pressure 124/100 H 09/10/24 18:24 Pulse Oximetry 97 09/10/24 18:24 Temperature 97.9 F 09/11/24 08:15 Pulse Rate 93 09/11/24 08:15 Respiratory Rate 20 09/11/24 08:15 Blood Pressure 120/89 09/11/24 08:15 Pulse Oximetry 100 09/11/24 08:15 Oxygen Delivery Room Air 09/10/24 18:27 <Karen Hollis MD - Last Filed: 09/11/24 11:10> MDM - Psych MDM Narrative Medical decision making narrative: Patient presented to ED with alcohol intoxication, SI. Vital signs are stable upon arrival. Patient is somewhat agitated at times, labile mood. Does appear intoxicated. ED psych workup was initiated. CBC unremarkable. CMP with sodium 151, chloride 110, anion gap of 16. Likely starvation ketosis related to alcohol use. Patient given water and fluids to drink in the ED. Minimal transaminitis. UA concerning for infection. Sent for culture. Started Keflex in the ED. UDS negative. TSH was slightly low, however free T4 was within normal range. Will update patient on this and need for further outpatient follow-up. CT brain and cervical spine were obtained as patient had possible fall in the ED bathroom. These were unremarkable for traumatic findings. Alcohol level was 325. Consistent with clinical picture. Patient will need clearance of alcohol and re-evaluation of suicidality before medical clearance[place] [address]/11. Care signed out to Dr. Walters at shift change pending medical clearance for evaluation by crisis team. <Becky North PA-C - Last Filed: 09/11/24 01:52> Medical Records Attestation: I reviewed the patient's medical records. <Becky North PA-C - Last Filed: 09/11/24 01:52> Lab Data Attestation: I reviewed the patient's lab results. <Becky North PA-C - Last Filed: 09/11/24 01:52> Result diagrams: 09/10/24 19:11 09/10/24 19:11 <Becky North PA-C - Last Filed: 09/11/24 01:52> Labs: Lab Results 09/10/24 09/10/24 09/11/24 Range/Units 19:11 19:11 04:36 WBC 6.3 (4.5-10.0) K/mm3 RBC 4.61 (4.2-5.4) M/mm3 Hgb 14.1 (12.0-15.0) g/dL Hct 43.0 (37.0-47.0) % MCV 93.3 (80-100) fl MCH 30.6 (26-34) pg MCHC 32.8 (32-36) g/dl RDW 13.5 (11.5-14.5) % Plt Count 227 D (150-375) k/mm3 MPV 10.7 H (7.4-10.4) fl Immature Gran % (Auto) 0.3 (0-0.5) % Neut % (Auto) 52.0 (45.5-73.1) % Lymph % (Auto) 38.9 (18.3-44.2) % [place] % (Auto) 6.6 (2.6-8.5) % Eos % (Auto) 1.1 (0-4.4) % Baso % (Auto) 1.1 (0.2-1.2) % Lymph # (Auto) 2.46 (0.9-3.2) K/mm3 [place] # (Auto) 0.4 (0.1-0.6) K/mm3 Eos # (Auto) 0.1 (0-0.3) K/mm3 Baso # (Auto) 0.1 (0.0-0.1) K/mm3 Abs Immat Gran (auto) 0.02 (0.00-0.031) K/mm3 Absolute Neuts (auto) 3.3 (1.3-6.7) K/mm3 Absolute Nucleated RBC 0.000 (0.0-0.012) K/mm3 Nucleated RBC % 0.0 (0.0-0.2) % Sodium 151 H (137-145) mmol/L Potassium 4.3 (3.4-5.0) mmol/L Chloride 110 H (98-107) mmol/L Carbon Dioxide 25 (22-30) mmol/L Anion Gap 16 H (4-12) mmol/L BUN 15 (7-17) mg/dL Creatinine 0.99 (0.7-1.0) mg/dL Estim Creat Clear Calc Not Reportable Estimated GFR 57 L (59 - ) Glucose 107 (65-110) mg/dL Calcium 9.6 (8.4-10.2) mg/dL Total Bilirubin 0.4 (0.2-1.3) mg/dL AST 45 H (14-36) U/L ALT 40 H (6-35) U/L Alkaline Phosphatase 101 (38-126) U/L Total Protein 8.5 H (6.3-8.2) g/dL Albumin 4.9 (3.5-5.1) g/dL TSH 0.169 L Cancelled (0.465-4.680) uIU/mL Free T4 1.58 (0.78-2.19) ng/dL Urine Color Yellow (Yellow) Urine Appearance Cloudy H (Clear) Urine pH 6.5 (5.0-9.0) Ur Specific [place] 1.006 (1.001-1.035) Urine Protein Negative (Negative) mg/dL Urine Glucose (UA) Negative (Negative) mg/dL Urine Ketones Negative (Negative) mg/dL Ur Blood (Man) Negative (Negative) Urine Nitrate Positive H (Negative) Urine Bilirubin Negative (Negative) Urine Urobilinogen 0.2 (<2.0) mg/dL Add Ur Microanalysis Reviewed Leukocyte Esterase Rfl 3+ H (Negative) SOULEYMANE/UL Urine RBC 11-20 H (0-2) /hpf Urine WBC 21-50 H (0-3) /hpf Ur Squamous Epith Cells None seen (Few) /hpf Urine Bacteria 4+ H /hpf Urine Casts 0-2 Salicylates < 1.0 L (2-20) mg/dL Urine Opiates Screen Negative (Negative) Urine Methadone Screen Negative (Negative) Acetaminophen < 10 L (10-30) ug/mL Ur Barbiturates Screen Negative (Negative) Ur Phencyclidine Scrn Negative (Negative) Ur Amphetamine Screen Negative (Negative) U Benzodiazepines Scrn Negative (Negative) Urine Cocaine Screen Negative (Negative) U Cannabinoids Screen Negative (Negative) Ethyl Alcohol 325 H* 144 (<10) mg/dL SARS-CoV-2 RNA (RT-PCR) Negative (Negative) 09/11/24 Range/Units 08:12 WBC (4.5-10.0) K/mm3 RBC (4.2-5.4) M/mm3 Hgb (12.0-15.0) g/dL Hct (37.0-47.0) % MCV (80-100) fl MCH (26-34) pg MCHC (32-36) g/dl RDW (11.5-14.5) % Plt Count (150-375) k/mm3 MPV (7.4-10.4) fl Immature Gran % (Auto) (0-0.5) % Neut % (Auto) (45.5-73.1) % Lymph % (Auto) (18.3-44.2) % [place] % (Auto) (2.6-8.5) % Eos % (Auto) (0-4.4) % Baso % (Auto) (0.2-1.2) % Lymph # (Auto) (0.9-3.2) K/mm3 [place] # (Auto) (0.1-0.6) K/mm3 Eos # (Auto) (0-0.3) K/mm3 Baso # (Auto) (0.0-0.1) K/mm3 Abs Immat Gran (auto) (0.00-0.031) K/mm3 Absolute Neuts (auto) (1.3-6.7) K/mm3 Absolute Nucleated RBC (0.0-0.012) K/mm3 Nucleated RBC % (0.0-0.2) % Sodium (137-145) mmol/L Potassium (3.4-5.0) mmol/L Chloride (98-107) mmol/L Carbon Dioxide (22-30) mmol/L Anion Gap (4-12) mmol/L BUN (7-17) mg/dL Creatinine (0.7-1.0) mg/dL Estim Creat Clear Calc Estimated GFR (59 - ) Glucose (65-110) mg/dL Calcium (8.4-10.2) mg/dL Total Bilirubin (0.2-1.3) mg/dL AST (14-36) U/L ALT (6-35) U/L Alkaline Phosphatase (38-126) U/L Total Protein (6.3-8.2) g/dL Albumin (3.5-5.1) g/dL TSH (0.465-4.680) uIU/mL Free T4 (0.78-2.19) ng/dL Urine Color (Yellow) Urine Appearance (Clear) Urine pH (5.0-9.0) Ur Specific [place] (1.001-1.035) Urine Protein (Negative) mg/dL Urine Glucose (UA) (Negative) mg/dL Urine Ketones (Negative) mg/dL Ur Blood (Man) (Negative) Urine Nitrate (Negative) Urine Bilirubin (Negative) Urine Urobilinogen (<2.0) mg/dL Add Ur Microanalysis Leukocyte Esterase Rfl (Negative) SOULEYMANE/UL Urine RBC (0-2) /hpf Urine WBC (0-3) /hpf Ur Squamous Epith Cells (Few) /hpf Urine Bacteria /hpf Urine Casts Salicylates (2-20) mg/dL Urine Opiates Screen (Negative) Urine Methadone Screen (Negative) Acetaminophen (10-30) ug/mL Ur Barbiturates Screen (Negative) Ur Phencyclidine Scrn (Negative) Ur Amphetamine Screen (Negative) U Benzodiazepines Scrn (Negative) Urine Cocaine Screen (Negative) U Cannabinoids Screen (Negative) Ethyl Alcohol 62 (<10) mg/dL SARS-CoV-2 RNA (RT-PCR) (Negative) <Becky North PA-C - Last Filed: 09/11/24 01:52> Lab Results 09/10/24 09/10/24 09/11/24 Range/Units 19:11 19:11 04:36 WBC 6.3 (4.5-10.0) K/mm3 RBC 4.61 (4.2-5.4) M/mm3 Hgb 14.1 (12.0-15.0) g/dL Hct 43.0 (37.0-47.0) % MCV 93.3 (80-100) fl MCH 30.6 (26-34) pg MCHC 32.8 (32-36) g/dl RDW 13.5 (11.5-14.5) % Plt Count 227 D (150-375) k/mm3 MPV 10.7 H (7.4-10.4) fl Immature Gran % (Auto) 0.3 (0-0.5) % Neut % (Auto) 52.0 (45.5-73.1) % Lymph % (Auto) 38.9 (18.3-44.2) % [place] % (Auto) 6.6 (2.6-8.5) % Eos % (Auto) 1.1 (0-4.4) % Baso % (Auto) 1.1 (0.2-1.2) % Lymph # (Auto) 2.46 (0.9-3.2) K/mm3 [place] # (Auto) 0.4 (0.1-0.6) K/mm3 Eos # (Auto) 0.1 (0-0.3) K/mm3 Baso # (Auto) 0.1 (0.0-0.1) K/mm3 Abs Immat Gran (auto) 0.02 (0.00-0.031) K/mm3 Absolute Neuts (auto) 3.3 (1.3-6.7) K/mm3 Absolute Nucleated RBC 0.000 (0.0-0.012) K/mm3 Nucleated RBC % 0.0 (0.0-0.2) % Sodium 151 H (137-145) mmol/L Potassium 4.3 (3.4-5.0) mmol/L Chloride 110 H (98-107) mmol/L Carbon Dioxide 25 (22-30) mmol/L Anion Gap 16 H (4-12) mmol/L BUN 15 (7-17) mg/dL Creatinine 0.99 (0.7-1.0) mg/dL Estim Creat Clear Calc Not Reportable Estimated GFR 57 L (59 - ) Glucose 107 (65-110) mg/dL Calcium 9.6 (8.4-10.2) mg/dL Total Bilirubin 0.4 (0.2-1.3) mg/dL AST 45 H (14-36) U/L ALT 40 H (6-35) U/L Alkaline Phosphatase 101 (38-126) U/L Total Protein 8.5 H (6.3-8.2) g/dL Albumin 4.9 (3.5-5.1) g/dL TSH 0.169 L Cancelled (0.465-4.680) uIU/mL Free T4 1.58 (0.78-2.19) ng/dL Urine Color Yellow (Yellow) Urine Appearance Cloudy H (Clear) Urine pH 6.5 (5.0-9.0) Ur Specific [place] 1.006 (1.001-1.035) Urine Protein Negative (Negative) mg/dL Urine Glucose (UA) Negative (Negative) mg/dL Urine Ketones Negative (Negative) mg/dL Ur Blood (Man) Negative (Negative) Urine Nitrate Positive H (Negative) Urine Bilirubin Negative (Negative) Urine Urobilinogen 0.2 (<2.0) mg/dL Add Ur Microanalysis Reviewed Leukocyte Esterase Rfl 3+ H (Negative) SOULEYMANE/UL Urine RBC 11-20 H (0-2) /hpf Urine WBC 21-50 H (0-3) /hpf Ur Squamous Epith Cells None seen (Few) /hpf Urine Bacteria 4+ H /hpf Urine Casts 0-2 Salicylates < 1.0 L (2-20) mg/dL Urine Opiates Screen Negative (Negative) Urine Methadone Screen Negative (Negative) Acetaminophen < 10 L (10-30) ug/mL Ur Barbiturates Screen Negative (Negative) Ur Phencyclidine Scrn Negative (Negative) Ur Amphetamine Screen Negative (Negative) U Benzodiazepines Scrn Negative (Negative) Urine Cocaine Screen Negative (Negative) U Cannabinoids Screen Negative (Negative) Ethyl Alcohol 325 H* 144 (<10) mg/dL SARS-CoV-2 RNA (RT-PCR) Negative (Negative) 09/11/24 Range/Units 08:12 WBC (4.5-10.0) K/mm3 RBC (4.2-5.4) M/mm3 Hgb (12.0-15.0) g/dL Hct (37.0-47.0) % MCV (80-100) fl MCH (26-34) pg MCHC (32-36) g/dl RDW (11.5-14.5) % Plt Count (150-375) k/mm3 MPV (7.4-10.4) fl Immature Gran % (Auto) (0-0.5) % Neut % (Auto) (45.5-73.1) % Lymph % (Auto) (18.3-44.2) % [place] % (Auto) (2.6-8.5) % Eos % (Auto) (0-4.4) % Baso % (Auto) (0.2-1.2) % Lymph # (Auto) (0.9-3.2) K/mm3 [place] # (Auto) (0.1-0.6) K/mm3 Eos # (Auto) (0-0.3) K/mm3 Baso # (Auto) (0.0-0.1) K/mm3 Abs Immat Gran (auto) (0.00-0.031) K/mm3 Absolute Neuts (auto) (1.3-6.7) K/mm3 Absolute Nucleated RBC (0.0-0.012) K/mm3 Nucleated RBC % (0.0-0.2) % Sodium (137-145) mmol/L Potassium (3.4-5.0) mmol/L Chloride (98-107) mmol/L Carbon Dioxide (22-30) mmol/L Anion Gap (4-12) mmol/L BUN (7-17) mg/dL Creatinine (0.7-1.0) mg/dL Estim Creat Clear Calc Estimated GFR (59 - ) Glucose (65-110) mg/dL Calcium (8.4-10.2) mg/dL Total Bilirubin (0.2-1.3) mg/dL AST (14-36) U/L ALT (6-35) U/L Alkaline Phosphatase (38-126) U/L Total Protein (6.3-8.2) g/dL Albumin (3.5-5.1) g/dL TSH (0.465-4.680) uIU/mL Free T4 (0.78-2.19) ng/dL Urine Color (Yellow) Urine Appearance (Clear) Urine pH (5.0-9.0) Ur Specific [place] (1.001-1.035) Urine Protein (Negative) mg/dL Urine Glucose (UA) (Negative) mg/dL Urine Ketones (Negative) mg/dL Ur Blood (Man) (Negative) Urine Nitrate (Negative) Urine Bilirubin (Negative) Urine Urobilinogen (<2.0) mg/dL Add Ur Microanalysis Leukocyte Esterase Rfl (Negative) SOULEYMANE/UL Urine RBC (0-2) /hpf Urine WBC (0-3) /hpf Ur Squamous Epith Cells (Few) /hpf Urine Bacteria /hpf Urine Casts Salicylates (2-20) mg/dL Urine Opiates Screen (Negative) Urine Methadone Screen (Negative) Acetaminophen (10-30) ug/mL Ur Barbiturates Screen (Negative) Ur Phencyclidine Scrn (Negative) Ur Amphetamine Screen (Negative) U Benzodiazepines Scrn (Negative) Urine Cocaine Screen (Negative) U Cannabinoids Screen (Negative) Ethyl Alcohol 62 (<10) mg/dL SARS-CoV-2 RNA (RT-PCR) (Negative) <Yaneth Walters MD - Last Filed: 09/11/24 06:55> Lab Results 09/10/24 09/10/24 09/11/24 Range/Units 19:11 19:11 04:36 WBC 6.3 (4.5-10.0) K/mm3 RBC 4.61 (4.2-5.4) M/mm3 Hgb 14.1 (12.0-15.0) g/dL Hct 43.0 (37.0-47.0) % MCV 93.3 (80-100) fl MCH 30.6 (26-34) pg MCHC 32.8 (32-36) g/dl RDW 13.5 (11.5-14.5) % Plt Count 227 D (150-375) k/mm3 MPV 10.7 H (7.4-10.4) fl Immature Gran % (Auto) 0.3 (0-0.5) % Neut % (Auto) 52.0 (45.5-73.1) % Lymph % (Auto) 38.9 (18.3-44.2) % [place] % (Auto) 6.6 (2.6-8.5) % Eos % (Auto) 1.1 (0-4.4) % Baso % (Auto) 1.1 (0.2-1.2) % Lymph # (Auto) 2.46 (0.9-3.2) K/mm3 [place] # (Auto) 0.4 (0.1-0.6) K/mm3 Eos # (Auto) 0.1 (0-0.3) K/mm3 Baso # (Auto) 0.1 (0.0-0.1) K/mm3 Abs Immat Gran (auto) 0.02 (0.00-0.031) K/mm3 Absolute Neuts (auto) 3.3 (1.3-6.7) K/mm3 Absolute Nucleated RBC 0.000 (0.0-0.012) K/mm3 Nucleated RBC % 0.0 (0.0-0.2) % Sodium 151 H (137-145) mmol/L Potassium 4.3 (3.4-5.0) mmol/L Chloride 110 H (98-107) mmol/L Carbon Dioxide 25 (22-30) mmol/L Anion Gap 16 H (4-12) mmol/L BUN 15 (7-17) mg/dL Creatinine 0.99 (0.7-1.0) mg/dL Estim Creat Clear Calc Not Reportable Estimated GFR 57 L (59 - ) Glucose 107 (65-110) mg/dL Calcium 9.6 (8.4-10.2) mg/dL Total Bilirubin 0.4 (0.2-1.3) mg/dL AST 45 H (14-36) U/L ALT 40 H (6-35) U/L Alkaline Phosphatase 101 (38-126) U/L Total Protein 8.5 H (6.3-8.2) g/dL Albumin 4.9 (3.5-5.1) g/dL TSH 0.169 L Cancelled (0.465-4.680) uIU/mL Free T4 1.58 (0.78-2.19) ng/dL Urine Color Yellow (Yellow) Urine Appearance Cloudy H (Clear) Urine pH 6.5 (5.0-9.0) Ur Specific [place] 1.006 (1.001-1.035) Urine Protein Negative (Negative) mg/dL Urine Glucose (UA) Negative (Negative) mg/dL Urine Ketones Negative (Negative) mg/dL Ur Blood (Man) Negative (Negative) Urine Nitrate Positive H (Negative) Urine Bilirubin Negative (Negative) Urine Urobilinogen 0.2 (<2.0) mg/dL Add Ur Microanalysis Reviewed Leukocyte Esterase Rfl 3+ H (Negative) SOULEYMANE/UL Urine RBC 11-20 H (0-2) /hpf Urine WBC 21-50 H (0-3) /hpf Ur Squamous Epith Cells None seen (Few) /hpf Urine Bacteria 4+ H /hpf Urine Casts 0-2 Salicylates < 1.0 L (2-20) mg/dL Urine Opiates Screen Negative (Negative) Urine Methadone Screen Negative (Negative) Acetaminophen < 10 L (10-30) ug/mL Ur Barbiturates Screen Negative (Negative) Ur Phencyclidine Scrn Negative (Negative) Ur Amphetamine Screen Negative (Negative) U Benzodiazepines Scrn Negative (Negative) Urine Cocaine Screen Negative (Negative) U Cannabinoids Screen Negative (Negative) Ethyl Alcohol 325 H* 144 (<10) mg/dL SARS-CoV-2 RNA (RT-PCR) Negative (Negative) 09/11/24 Range/Units 08:12 WBC (4.5-10.0) K/mm3 RBC (4.2-5.4) M/mm3 Hgb (12.0-15.0) g/dL Hct (37.0-47.0) % MCV (80-100) fl MCH (26-34) pg MCHC (32-36) g/dl RDW (11.5-14.5) % Plt Count (150-375) k/mm3 MPV (7.4-10.4) fl Immature Gran % (Auto) (0-0.5) % Neut % (Auto) (45.5-73.1) % Lymph % (Auto) (18.3-44.2) % [place] % (Auto) (2.6-8.5) % Eos % (Auto) (0-4.4) % Baso % (Auto) (0.2-1.2) % Lymph # (Auto) (0.9-3.2) K/mm3 [place] # (Auto) (0.1-0.6) K/mm3 Eos # (Auto) (0-0.3) K/mm3 Baso # (Auto) (0.0-0.1) K/mm3 Abs Immat Gran (auto) (0.00-0.031) K/mm3 Absolute Neuts (auto) (1.3-6.7) K/mm3 Absolute Nucleated RBC (0.0-0.012) K/mm3 Nucleated RBC % (0.0-0.2) % Sodium (137-145) mmol/L Potassium (3.4-5.0) mmol/L Chloride (98-107) mmol/L Carbon Dioxide (22-30) mmol/L Anion Gap (4-12) mmol/L BUN (7-17) mg/dL Creatinine (0.7-1.0) mg/dL Estim Creat Clear Calc Estimated GFR (59 - ) Glucose (65-110) mg/dL Calcium (8.4-10.2) mg/dL Total Bilirubin (0.2-1.3) mg/dL AST (14-36) U/L ALT (6-35) U/L Alkaline Phosphatase (38-126) U/L Total Protein (6.3-8.2) g/dL Albumin (3.5-5.1) g/dL TSH (0.465-4.680) uIU/mL Free T4 (0.78-2.19) ng/dL Urine Color (Yellow) Urine Appearance (Clear) Urine pH (5.0-9.0) Ur Specific [place] (1.001-1.035) Urine Protein (Negative) mg/dL Urine Glucose (UA) (Negative) mg/dL Urine Ketones (Negative) mg/dL Ur Blood (Man) (Negative) Urine Nitrate (Negative) Urine Bilirubin (Negative) Urine Urobilinogen (<2.0) mg/dL Add Ur Microanalysis Leukocyte Esterase Rfl (Negative) SOULEYMANE/UL Urine RBC (0-2) /hpf Urine WBC (0-3) /hpf Ur Squamous Epith Cells (Few) /hpf Urine Bacteria /hpf Urine Casts Salicylates (2-20) mg/dL Urine Opiates Screen (Negative) Urine Methadone Screen (Negative) Acetaminophen (10-30) ug/mL Ur Barbiturates Screen (Negative) Ur Phencyclidine Scrn (Negative) Ur Amphetamine Screen (Negative) U Benzodiazepines Scrn (Negative) Urine Cocaine Screen (Negative) U Cannabinoids Screen (Negative) Ethyl Alcohol 62 (<10) mg/dL SARS-CoV-2 RNA (RT-PCR) (Negative) <Karen Hollis MD - Last Filed: 09/11/24 11:10> Imaging Data Attestation: I personally reviewed and interpreted this imaging study as follows: < Becky North PA-C - Last Filed: 09/11/24 01:52> Radiologist's impression: ITS Impressions Head CT 09/10/24 19:51 IMPRESSION: No acute intracranial findings. Cervical Spine CT 09/10/24 20:22 IMPRESSION: Motion artifacts degraded the images. No definite acute osseous abnormality cervical spine. Possible minimal retrolisthesis at the level of C5-C6. Multilevel degenerative disc disease. <RENE Myers Last Filed: 09/11/24 01:52> Discharge Plan Discharge Clinical Impression: Depression with suicidal ideation, Low serum thyroid stimulating hormone (TSH) UTI (urinary tract infection) Qualifiers: Urinary tract infection type: acute cystitis Hematuria presence: with hematuria Qualified Code(s): N30.01 - Acute cystitis with hematuria Acute alcohol intoxication with alcoholism Qualifiers: Complication of substance-induced condition: uncomplicated Qualified Code(s): F 10.220 - Alcohol dependence with intoxication, uncomplicated <RENE Myers Last Filed: 09/11/24 01:52> Patient Disposition: Still a Patient <RENE Myers Last Filed: 09/11/24 01:52> Condition: Stable <RENE Myers Last Filed: 09/11/24 01:52> Instructions: Urinary Tract Infection in Women (ED), Depression (ED), Help Prevent Suicide (ED) <RENE Myers Last Filed: 09/11/24 01:52> Additional Instructions: Take antibiotics as prescribed for urinary tract infection. Your TSH was low here today. You will need to follow up with your primary care doctor for further evaluation of this. You can use the resources provided but please come back to the ER for any further issues. <RENE Myers Last Filed: 09/11/24 01:52> Patient Language: [place] Rican <RENE Myers Last Filed: 09/11/24 01:52> Prescriptions: New cephalexin 500 mg capsule 500 mg PO Q6H 7 Days Qty: 28 0RF No Action nitrofurantoin monohyd/m-cryst [Macrobid] 100 mg capsule 100 mg PO Q12H 5 Days Qty: 10 0RF Rx Instructions: must administer with a meal/food atorvastatin 80 mg tablet 80 mg PO DAILY folic acid 1 mg tablet 1 mg PO DAILY clobetasol 0.05 % ointment 1 applic TOPICAL TID Rx Instructions: ARMS AND LEGS losartan 100 mg tablet 100 mg PO DAILY aspirin 81 mg Tablet 81 mg PO DAILY famotidine 20 mg Tablet 20 mg PO DAILY halobetasol propionate 0.05 % Ointment 1 applic TOPICAL TID Rx Instructions: extremeties mupirocin 2 % Ointment 1 applic TOPICAL TID Rx Instructions: extremeties cefuroxime axetil 250 mg Tablet 500 mg PO Q12HR 3 Days Qty: 6 0RF metronidazole 500 mg Tablet 500 mg PO Q8HR 3 Days Qty: 9 0RF hydrocodone-acetaminophen 5-325 mg tablet 1 tablet PO Q4-6H PRN (Reason: pain) Qty: 10 0RF <Becky North PA-C - Last Filed: 09/11/24 01:52> Follow-up/Referrals: Evelyn,Vince Leo MD [Primary Care Provider] - <Becky North PA-C - Last Filed: 09/11/24 01:52>
[2024-09-10 20:04] LABS: SARS-CoV-2 RNA PCR Negative (Negative)
[2024-09-10 20:10] LABS: Ethanol 325 mg/dL (<10)
[2024-09-10 21:04] LABS: Add Urine Microscopic? YES; Appearance Urine Cloudy (Clear); Bacteria Urine 4+ /hpf; Bilirubin Urine Negative (Negative); Blood Urine Negative (Negative); Color Urine Yellow (Yellow); Glucose Urine UA Negative (Negative); Ketones Urine Negative (Negative); Leukocyte Esterase Ur 3+ LEU/UL (Negative); Need Manual Microscopic Reviewed; Nitrate Urine Positive (Negative); Non Pathogenic Casts 0-2; Protein Urine Negative (Negative); Specific Grav Ur 1.006 (1.001-1.035); Squamous Epithelial Cell Urine None Seen /hpf (Few); Urobilinogen Urine 0.2 mg/dL (<2.0); WBC Urine 21-50 /hpf (0-3); pH Urine 6.5 (5.0-9.0)
--- NOTE | 2024-09-10 21:45 | PC.NURSE ---
Abx ordered at 2140. Per ED Charge, we are to let patient sleep until we have to wake her up for labs at 0400
[2024-09-10 22:01] LABS: Thyroid Stimulating Hormone 0.169 uIU/mL (0.465-4.680)
[2024-09-10 22:42] LABS: Free T4 Free Thyroxine 1.58 ng/dL (0.78-2.19)
[2024-09-11] MEDS: CEPHALEXIN 500 MG CAPSULE PO ×2 (04:37→11:42)
[2024-09-11 04:52] LABS: Ethanol 144 mg/dL (<10)
[2024-09-11] MEDS: LORazepam (*CRX) 0.5 MG TABLET PO ×2 (05:14→09:44)
[2024-09-11] MEDS: ONDANSETRON HCL ODT 4 MG TABLET PO (05:14)
[2024-09-11 08:15] VITALS: BP 120/89; PULSE 93; RESP 20; TEMP 36.6; O2SAT 100
--- NOTE | 2024-09-11 08:18 | PC.NURSE ---
breakfast tray ordered for the pt.
[2024-09-11 09:05] LABS: Ethanol 62 mg/dL (<10)
== END 2024-09-11 12:17 | disposition home or self-care (01) ==
PROVIDERS: Physician Assistant; Student in an Organized Health Care Education/Training Program; Emergency Provider Emergency Medicine; PCP Internal Medicine Gastroenterology
DX: F32.A Depression, unspecified (principal); R45.851 Suicidal ideations; F10.220 Alcohol dependence with intoxication, uncomplicated; Y90.8 Blood alcohol level of 240 mg/100 ml or more; N30.01 Acute cystitis with hematuria; R94.6 Abnormal results of thyroid function studies; Z11.52 Encounter for screening for COVID-19; I10 Essential (primary) hypertension; F41.9 Anxiety disorder, unspecified; L40.9 Psoriasis, unspecified; K21.9 Gastro-esophageal reflux disease without esophagitis; M10.9 Gout, unspecified; Z86.73 Personal history of transient ischemic attack (TIA), and cerebral infarction without residual deficits; Z77.22 Contact with and (suspected) exposure to environmental tobacco smoke (acute) (chronic); Z79.82 Long term (current) use of aspirin; Z79.899 Other long term (current) drug therapy
CPT/HCPCS: 36415; 70450; 72125; 80053; 80143; 80179; 80307; 81001; 82077; 84439; 84443; 85025; 87086; 87186; 87635; 99284; A9270